=== PATIENT | male | born 1960 | race Hispanic/Latino ===

== ENCOUNTER 2019-10-10 09:18 | Observation (INO) | payer OTHER ==
[2019-10-10] MEDS ORDERED: MORPHINE 4 MG/ML SYR ONE (10:08)
[2019-10-10] MEDS ORDERED: NA CHLORIDE 0.9% 1,000 ML ONE (10:08)
[2019-10-10] MEDS ORDERED: ONDANSETRON 4 MG/2 ML VIAL ONE ×2 (10:08→11:32)
[2019-10-10] MEDS ORDERED: FAMOTIDINE 20 MG/2 ML VIAL IV ONE (10:08)
--- NOTE | 2019-10-10 10:15 | RAD REPORT ---
EXAM DESCRIPTION: RAD - Chest Single View - 10/10/2019 10:05 am CLINICAL HISTORY: Chest pain;Abdominal distention Chest pain. COMPARISON: CHEST SINGLE VIEW dated 03/17/2009 FINDINGS: Portable technique limits examination quality. The lungs are grossly clear. The heart is normal in size. No displaced fractures. IMPRESSION: No acute intrathoracic process suspected.
[2019-10-10 10:29] LABS: Absolute Lymphocytes (CBC) 2.4 K/uL (0.7-4.9); Basophils % 0.7 % (0-1.3); Hematocrit 44.3 % (39.6-49.0); MPV 7.9 fL (7.6-11.3); RBC Red Blood Cell Count 4.71 M/uL (4.33-5.43)
[2019-10-10 11:22] LABS: Protime INR 0.96
--- NOTE | 2019-10-10 11:30 | EKG ---
Test Date: 2019-10-10 Test Time: 09:56:36 Quality Eng: MERARY MEASUREMENT RESULTS: Intervals: Rate: 65 TN: 134 QRSD: 88 QT: 402 QTc: 418 Blakely: P: 73 TN: 134 QRS: 91 T: 63 INTERPRETIVE STATEMENTS: Normal sinus rhythm Right atrial enlargement Rightward axis Voltage criteria for left ventricular hypertrophy Abnormal ECG Compared to ECG 03/17/2009 16:16:12 Atrial abnormality now present Right-axis deviation now present Left ventricular hypertrophy now present Electronically Signed On 10-10-19 11:29:06 UROGYNECOLOGY PHYSICIAN by Nicho Woods
[2019-10-10] MEDS ORDERED: HYDROMORPHONE HCL 1 MG/ML INJ ONE ×2 (11:32→13:49)
[2019-10-10 12:16] LABS: ALT/SGPT 37 U/L (12-78); AST/SGOT 25 U/L (15-37); Albumin 3.8 g/dL (3.4-5.0); Alkaline Phosphatase 59 U/L (45-117); BUN Blood Urea Nitrogen 13 mg/dL (7-18); Bicarbonate 26 mmol/L (21-32); Bilirubin Direct < 0.1 mg/dL (0-0.2); Bilirubin Total 0.3 mg/dL (0.2-1.0); Glucose Level 123 mg/dL (74-106); Lipase 135 U/L (73-393); Magnesium 2.2 mg/dL (1.8-2.4); NT PRO-BNP 929 pg/mL (<125); Potassium 3.4 mmol/L (3.5-5.1); Protein, Total 7.8 g/dL (6.4-8.2); Sodium Level 140 mmol/L (136-145); Troponin (Emerg Dept Use Only) 0.03 ng/mL (0.0-0.045)
[2019-10-10 12:25] LABS: Urine Blood NEGATIVE (NEG); Urine Glucose NEGATIVE (NEG); Urine Protein NEGATIVE (NEG)
[2019-10-10] MEDS ORDERED: AMLODIPINE 5 MG TAB ONE (12:41)
--- NOTE | 2019-10-10 12:42 | RAD REPORT ---
EXAM DESCRIPTION: CT - Angio Aorta For Dissection - 10/10/2019 12:29 pm CLINICAL HISTORY: Chest pain radiating to the back. Abdominal distention;Chest pain COMPARISON: Chest Single View dated 10/10/2019; ABD PELVIC VASCULAR SCAN dated 10/07/2013 TECHNIQUE: CT angiography of the aorta was performed with MIPs. All CT scans are performed using dose optimization technique as appropriate and may include automated exposure control or mA/KV adjustment according to patient size. FINDINGS: A left aortic arch is present with normal branching pattern of the great vessels.No acute aortic finding is seen such as aneurysm, penetrating ulcer or dissection. The celiac axis, SMA, MARY and renal arteries are patent. No evidence of pulmonary embolism. The lungs are mildly emphysematous but clear. The liver demonstrates no focal mass or biliary dilatation.The spleen, pancreas, adrenal glands and k idneys are within normal limits for arterial phase imaging. Somewhat distended gallbladder is seen. No bowel obstruction, free fluid or abscess.Normal appendix.No pathologic enlarged lymphadenopathy id entified. Postsurgical changes are present in the lumbar spine with stimulator place. IMPRESSION: No acute aortic finding is demonstrated. Gallbladder distention is noted. If the patient has right upper quadrant symptomology, followup gallb ladder sonography may be useful.
[2019-10-10] MEDS ORDERED: POTASSIUM CL SA 10 MEQ TAB PO ONE (12:48)
[2019-10-10 12:54] LABS: Barbiturates NEGATIVE (NEGATIVE); Benzodiazepines NEGATIVE (NEGATIVE); Cocaine POSITIVE (NEGATIVE); METHAMPHETAM NEGATIVE (NEGATIVE); Methadone NEGATIVE (NEGATIVE); Opiates NEGATIVE (NEGATIVE); Phencyclidine NEGATIVE (NEGATIVE); THC Cannibis NEGATIVE (NEGATIVE)
[2019-10-10] MEDS ORDERED: NS KCL 20MEQ 1,000 ML IV ONE (12:56)
--- NOTE | 2019-10-10 13:39 | RAD REPORT ---
EXAM DESCRIPTION: US - Abdomen Exam Limited - 10/10/2019 1:03 pm CLINICAL HISTORY: ABD PAIN COMPARISON: ABD PELVIC VASCULAR SCAN dated 10/07/2013 FINDINGS: Approximately 3 centimeter sized mobile gallstone is present in a normal size gallbladder. There is no wall thickening or pericholecystic fluid. No common duct stone or biliary tree dilatation identified. IMPRESSION: Large 3 millimeter mobile gallstone. No other gallbladder or biliary tree abnormality.
--- NOTE | 2019-10-10 13:47 | ER ---
Nurse's Notes [facility] Name: Pillo Pickens Age: 58 yrs Sex: Male : 1960 Arrival Date: 10/10/2019 Time: 09:24 Bed 7 Private MD: Diagnosis: Other chest pain;Abdominal tenderness;Essential (primary) hypertension;Hypokalemia;Cocaine abuse Presentation: 10/10 09:36 Chief complaint: Patient states: pain just under ribs and towards back that began ss yesterday. Coronavirus screen: The patient has NOT traveled to [place] in the past 14 days. Proceed with normal triage procedures. Ebola Screen: Patient denies exposure to infectious person. Patient denies travel to an Ebola-affected area in the 21 days before illness onset. Initial Sepsis Screen: Does the patient meet any 2 criteria? No. Patient's initial sepsis screen is negative. Does the patient have a suspected source of infection? No. Patient's initial sepsis screen is negative. Risk Assessment: Do you want to hurt yourself or someone else? Patient reports no desire to harm self or others. 09:36 Method Of Arrival: Ambulatory ss 09:36 Acuity: SHADY 3 ss 11:24 Onset of symptoms was October 09, 2019. ah Historical: - Allergies: 09:35 No Known Allergies; ss - Home Meds: 09:35 gabapentin 800 mg oral tab 1 tab 3 times per day [Active]; ss - PMHx: 09:35 Chronic pain; ss 09:36 bacterial meningitits (2012); ss - PSHx: 09:35 spinal fusion; electrical stiumlator (is not on/ does not work); ss - Immunization history:: Adult Immunizations up to date. - Social history:: Smoking status: Patient reports the use of cigarette tobacco products, smokes one pack cigarettes per day. - Family history:: not pertinent. Screenin:28 Abuse screen: Denies threats or abuse. Denies injuries from another. Nutritional sv screening: No deficits noted. Tuberculosis screening: No symptoms or risk factors identified. Fall Risk None identified. Assessment: 09:39 General: Appears distressed, Behavior is calm, cooperative. Pain: Complains of pain in ah around ribs and all the way around to his back Pain does not radiate. Pain at worst was 9 out of 10 on a pain scale. Quality of pain is described as sharp, Pain began last night Is continuous, Alleviated by standing Aggravated by laying down Also complains of hurts to take a deep breath while laying down. Neuro: Level of Consciousness is awake, alert, Oriented to person, place, time, Submarine Operator are equal bilaterally Moves all extremities. Gait is steady, Speech is normal. Cardiovascular: Heart tones S1 S2 present Capillary refill < 3 seconds Patient's skin is warm and dry. Pulses are palpable in right radial artery, right dorsalis pedis artery, left radial artery and left dorsalis pedis artery. Respiratory: Airway is patent Respiratory effort is even, unlabored, Respiratory pattern is regular, symmetrical, Breath sounds are clear bilaterally. Parent/caregiver reports the patient having pain with respiration. GI: No signs and/or symptoms were reported involving the gastrointestinal system. Abdomen is. 10:40 Reassessment: Patient appears in no apparent distress at this time. Patient and/or ah family updated on plan of care and expected duration. Pain level reassessed. Patient is alert, oriented x 3, equal unlabored respirations, skin warm/dry/pink. 11:34 Reassessment: Patient appears in no apparent distress at this time. Patient and/or ah family updated on plan of care and expected duration. Pain level reassessed. Patient is alert, oriented x 3, equal unlabored respirations, skin warm/dry/pink. Pt with c/o pain. Dilaudid admnistered at this time. 12:45 Reassessment: Patient appears in no apparent distress at this time. Patient and/or ah family updated on plan of care and expected duration. Pain level reassessed. Patient is alert, oriented x 3, equal unlabored respirations, skin warm/dry/pink. Norvasc given at this time. 13:45 Reassessment: Patient appears in no apparent distress at this time. Patient and/or ah family updated on plan of care and expected duration. Pain level reassessed. Patient is alert, oriented x 3, equal unlabored respirations, skin warm/dry/pink. Pt medicated with Dilauded about 15 mins ago, Pt lying in bed resting with family at bedside. No needs at this time. 15:20 Reassessment: Patient appears in no apparent distress at this time. Patient and/or ah family updated on plan of care and expected duration. Pain level reassessed. Patient is alert, oriented x 3, equal unlabored respirations, skin warm/dry/pink. Patient given sandwich and a drink at this time Patient states symptoms have improved. Vital Signs: 09:30 BP 185 / 100; Pulse 70; Resp 20; Pulse Ox 99% ; ah 09:36 BP 185 / 100; Pulse 69; Resp 18; Temp 98.6(TE); Pulse Ox 100% on R/A; Weight 61.23 kg; Height 5 ft. 7 in. (170.18 cm); Pain 9/10; 11:30 BP 191 / 102; Pulse 66; Resp 13; Pulse Ox 100% ; ah 12:45 BP 176 / 99; Pulse 66; Resp 20; Pulse Ox 100% ; 14:06 BP 173 / 79; Pulse 60; Resp 12; Pulse Ox 99% ; 15:16 BP 173 / 100; Pulse 65; Resp 12; Pulse Ox 99% ; 09:36 Body Mass Index 21.14 (61.23 kg, 170.18 cm) ED Course: 09:24 Patient arrived in ED. mr 09:27 Arm band placed on Patient placed in an exam room, on a stretcher. sv 09:27 Patient has correct armband on for positive identification. Bed in low position. Call sv light in reach. Door closed. Head of bed elevated. 09:29 Mohsen Bell MD is Attending Physician. [facility] 09:34 Eli Solorzano, RN is Primary Nurse. 09:37 Triage completed. 10:06 XRAY Chest (1 view) In Process Unspecified. EDMS 10:13 EKG done, by water restoration technician. reviewed by Mohsen Bell MD. at1 10:15 Missed attempt(s): 20 gauge in left forearm. done by Marleni Santizo dental manager student. Bleeding controlled, band aid applied, catheter tip intact. 10:22 Inserted saline lock: 22 gauge in right hand, using aseptic technique. 11:00 Radiology exam delayed due to lab results not completed at this time. (BUN/Creatinine). 12:22 Inserted saline lock: 22 gauge in left antecubital area, using aseptic technique. 12:22 Urine Dipstick--Ancillary (enter results) Sent. sv 12:25 Patient moved back from CT. ah 12:29 CT Aorta for Dissection In Process Unspecified. EDMS 12:45 Repeat lab(s) drawn. by pr, sent to lab. jb1 13:03 US Abdomen Limited In Process Unspecified. EDCT 13:44 Akhil Dumont MD is Hospitalizing Provider. [facility] 13:[address] Dumont the hospitalist interventional sale consultant with Dr. Bell for patient eb admission consultation. 15:15 Awaiting bed assignment. 15:44 No provider procedures requiring assistance completed. Patient admitted, IV remains in place. intact. Administered Medications: 10:30 Drug: NS 0.9% 1000 ml Route: IV; Rate: 1 bolus; Site: right hand; 10:30 Drug: Pepcid 20 mg Route: IVP; Site: right hand; ah 11:30 Follow up: Response: No adverse reaction 10:30 Drug: morphine 4 mg {Note: rass 1.} Route: IVP; Site: right hand; 11:30 Follow up: Response: No adverse reaction 10:54 Drug: Zofran (Ondansetron) 4 mg Route: IVP; Site: right hand; 14:03 Follow up: Response: No adverse reaction 11:34 Drug: Dilaudid 1 mg {Note: RASS 1.} Route: IVP; Site: right hand; 13:28 Follow up: Response: No adverse reaction; Pain is decreased ah 12:39 CANCELLED (Physician Discretion): Potassium Chloride 20 mEq PO once 12:44 CANCELLED (Duplicate Order): Potassium Chloride 20 mEq PO once [facility] 12:46 Drug: Norvasc 10 mg Route: PO; ah 13:27 Follow up: Response: No adverse reaction ah 12:47 Drug: Potassium Chloride 20 mEq Route: PO; ah 14:03 Follow up: Response: No adverse reaction 13:19 Drug: NS 0.9% with KCl 20 mEq/L 1000 ml Route: IV; Rate: 125 ml/hr; Site: right hand; ah 15:51 Follow up: Response: No adverse reaction; IV Status: Infusion continued upon admission 13:51 Drug: Dilaudid 1 mg {Note: Rass 1.} Route: IVP; Site: left antecubital; 14:55 Follow up: Response: No adverse reaction; Pain is decreased; RASS: Alert and Calm (0) 13:55 Drug: Aspirin 162 mg Route: PO; 14:55 Follow up: Response: No adverse reaction 15:45 Not Given (not needed): Zofran (Ondansetron) 4 mg IVP once; over 2 minutes sv Outcome: 13:45 Decision to Hospitalize by Provider. jenny 15:42 Admitted to [facility] accompanied by [facility], via wheelchair, room 405, with chart, Report called to Mayra 15:42 Condition: stable 15:42 Discharge instructions given to patient, family, Instructed on the need for admit, Demonstrated understanding of instructions. 15:51 Patient left the ED. sv Signatures: Dispatcher [employer] EDThomas Recio Stephanie, RN RN Mohsen Almodovar MD MD cha Rivera, Savanah mr Hernandez, Ana Macdonald RN RN Fadumo Perry, tipple worker EKG Tat1 Leigh Agrawal Amy, RN RN Corrections: (The following items were deleted from the chart) 12:30 11:22 Inserted saline lock: 22 gauge in right hand, using aseptic technique. [facility] 12:55 12:54 Repeat lab(s) drawn. by pr, sent to lab. jb1 jb1 14:03 10:30 morphine 4 mg IVP in right hand [facility]
--- NOTE | 2019-10-10 13:47 | EDPHYS ---
Physician Documentation [facility] Name: Pillo Pickens Age: 58 yrs Sex: Male : 1960 Arrival Date: 10/10/2019 Time: 09:24 Bed 7 Private MD: Mohsen Castillo HPI: 10/10 09:54 This 58 yrs old Male presents to ER via Ambulatory with complaints of Pain All jenny Over. 09:54 The patient or guardian reports chest pain that is located primarily in the substernal jenny area, anterior chest wall, bilaterally. Onset: 2 day(s) ago. The patient presents with abdominal pain in the epigastric area, in the upper abdomen. Onset: The symptoms/episode began/occurred 2 day(s) ago. The pain radiates to back. The symptoms radiate to back. Associated signs and symptoms: none. Modifying factors: The symptoms are alleviated by nothing, the symptoms are aggravated by food, movement, touching the area. Associated signs and symptoms: The patient has no apparent associated signs or symptoms. Historical: - Allergies: 09:35 No Known Allergies; ss - Home Meds: 09:35 gabapentin 800 mg oral tab 1 tab 3 times per day [Active]; ss - PMHx: 09:35 Chronic pain; ss 09:36 bacterial meningitits (2012); ss - PSHx: 09:35 spinal fusion; electrical stiumlator (is not on/ does not work); ss - Immunization history:: Adult Immunizations up to date. - Social history:: Smoking status: Patient reports the use of cigarette tobacco products, smokes one pack cigarettes per day. - Family history:: not pertinent. ROS: 09:54 Constitutional: Negative for fever, chills, and weight loss, Eyes: Negative for injury, jenny pain, redness, and discharge, ENT: Negative for injury, pain, and discharge, Neck: Negative for injury, pain, and swelling, Cardiovascular: Negative for chest pain, palpitations, and edema, Respiratory: Negative for shortness of breath, cough, wheezing, and pleuritic chest pain, Back: Negative for injury and pain, : Negative for injury, bleeding, discharge, and swelling, MS/Extremity: Negative for injury and deformity, Skin: Negative for injury, rash, and discoloration, Neuro: Negative for headache, weakness, numbness, tingling, and seizure, Psych: Negative for depression, anxiety, suicide ideation, homicidal ideation, and hallucinations, Allergy/Immunology: Negative for hives, rash, and allergies, Endocrine: Negative for neck swelling, polydipsia, polyuria, polyphagia, and marked weight changes, Hematologic/Lymphatic: Negative for swollen nodes, abnormal bleeding, and unusual bruising. 09:54 Abdomen/GI: Positive for abdominal pain, abdominal cramps, of the right upper quadrant and left upper quadrant. Exam: 09:54 Constitutional: This is a well developed, well nourished patient who is awake, alert, jenny and in no acute distress. Head/Face: Normocephalic, atraumatic. Eyes: Pupils equal round and reactive to light, extra-ocular motions intact. Lids and lashes normal. Conjunctiva and sclera are non-icteric and not injected. Cornea within normal limits. Periorbital areas with no swelling, redness, or edema. ENT: Nares patent. No nasal discharge, no septal abnormalities noted. Tympanic membranes are normal and external auditory canals are clear. Oropharynx with no redness, swelling, or masses, exudates, or evidence of obstruction, uvula midline. Mucous membranes moist. Neck: Trachea midline, no thyromegaly or masses palpated, and no cervical lymphadenopathy. Supple, full range of motion without nuchal rigidity, or vertebral point tenderness. No Meningismus. Chest/axilla: Normal chest wall appearance and motion. Nontender with no deformity. No lesions are appreciated. Cardiovascular: Regular rate and rhythm with a normal S1 and S2. No gallops, murmurs, or rubs. Normal PMI, no JVD. No pulse deficits. Respiratory: Lungs have equal breath sounds bilaterally, clear to auscultation and percussion. No rales, rhonchi or wheezes noted. No increased work of breathing, no retractions or nasal flaring. Back: No spinal tenderness. No costovertebral tenderness. Full range of motion. Male : Normal genitalia with no discharge or lesions. Skin: Warm, dry with normal turgor. Normal color with no rashes, no lesions, and no evidence of cellulitis. MS/ Extremity: Pulses equal, no cyanosis. Neurovascular intact. Full, normal range of motion. Neuro: Awake and alert, GCS 15, oriented to person, place, time, and situation. Cranial nerves II-XII grossly intact. Motor strength 5/5 in all extremities. Sensory grossly intact. Cerebellar exam normal. Normal gait. Psych: Awake, alert, with orientation to person, place and time. Behavior, mood, and affect are within normal limits. 09:54 Abdomen/GI: Inspection: abdomen appears normal, Bowel sounds: normal, Palpation: moderate abdominal tenderness, in the right upper quadrant and left upper quadrant, Liver: no appreciated palpable abnormalities, Hernia: not appreciated. Vital Signs: 09:30 BP 185 / 100; Pulse 70; Resp 20; Pulse Ox 99% ; ah 09:36 BP 185 / 100; Pulse 69; Resp 18; Temp 98.6(TE); Pulse Ox 100% on R/A; Weight 61.23 kg; ss Height 5 ft. 7 in. (170.18 cm); Pain 9/10; 11:30 BP 191 / 102; Pulse 66; Resp 13; Pulse Ox 100% ; ah 12:45 BP 176 / 99; Pulse 66; Resp 20; Pulse Ox 100% ; 14:06 BP 173 / 79; Pulse 60; Resp 12; Pulse Ox 99% ; ah 15:16 BP 173 / 100; Pulse 65; Resp 12; Pulse Ox 99% ; ah 09:36 Body Mass Index 21.14 (61.23 kg, 170.18 cm) ss MDM: 09:29 [facility] 09:56 Data reviewed: vital signs, nurses notes, lab test result(s), EKG, radiologic studies, [facility] CT scan, plain films. 10/10 09:52 Order name: Basic Metabolic Panel; Complete Time: 12:23 [facility] 10/10 09:52 Order name: CBC with Diff; Complete Time: 10:58 [facility] 10/10 09:52 Order name: LFT's; Complete Time: 12:23 [facility] 10/10 09:52 Order name: Magnesium; Complete Time: 12:23 [facility] 10/10 09:52 Order name: NT PRO-BNP; Complete Time: 12:23 [facility] 10/10 09:52 Order name: PT-INR; Complete Time: 11:28 [facility] 10/10 09:52 Order name: Troponin (emerg Dept Use Only); Complete Time: 12:23 [facility] 10/10 09:52 Order name: Lipase; Complete Time: 12:23 [facility] 10/10 12:03 Order name: UDS; Complete Time: 12:59 [facility] 10/10 12:19 Order name: Urine Dipstick--Ancillary (enter results); Complete Time: 12:26 10/10 12:24 Order name: Troponin (emerg Dept Use Only): 1245 pm; Complete Time: 13:41 [facility] 10/10 15:01 Order name: CKMB Creatine Kinase MB [facility] 10/10 15:01 Order name: CKMB Creatine Kinase MB [facility] 10/10 15:01 Order name: CKMB Creatine Kinase MB [facility] 10/10 09:52 Order name: XRAY Chest (1 view); Complete Time: 10:58 [facility] 10/10 09:52 Order name: CT Aorta for Dissection; Complete Time: 12:59 [facility] 10/10 12:44 Order name: US Abdomen Limited [facility] 10/10 15:01 Order name: CKMB Creatine Kinase MB [facility] 10/10 15:01 Order name: Comprehensive Metabolic Panel [facility] 10/10 15:03 Order name: Thyroid Stimulating Hormone [facility] 10/10 15:03 Order name: Creatine Phosphokinase [facility] 10/10 15:03 Order name: Creatine Phosphokinase [facility] 10/10 15:03 Order name: Troponin I [facility] 10/10 15:03 Order name: Troponin I [facility] 10/10 15:08 Order name: Echo with Doppler [facility] 10/10 09:52 Order name: EKG; Complete Time: 09:54 [facility] 10/10 09:52 Order name: Cardiac monitoring; Complete Time: 12:05 [facility] 10/10 09:52 Order name: EKG - Nurse/Tech; Complete Time: 12:05 [facility] 10/10 09:52 Order name: IV Saline Lock; Complete Time: 11:00 [facility] 10/10 09:52 Order name: Labs collected and sent; Complete Time: 11:00 [facility] 10/10 09:52 Order name: O2 Per Protocol; Complete Time: 12:05 [facility] 10/10 09:52 Order name: O2 Sat Monitoring; Complete Time: 12:05 [facility] 10/10 10:50 Order name: Labs - recollect needed: chemistry and pt tube recollect; Complete Time: dh4 11:10 10/10 11:31 Order name: Labs - recollect needed: chemistry needed; Complete Time: 11:50 [facility] 10/10 12:00 Order name: Urine Dipstick-Ancillary (obtain specimen); Complete Time: 12:22 [facility] 10/10 12:29 Order name: EKG; Complete Time: 12:29 [facility] 10/10 12:29 Order name: EKG - Nurse/Tech; Complete Time: 13:21 [facility] 10/10 15:03 Order name: Heart Healthy EDMS Administered Medications: 10:30 Drug: NS 0.9% 1000 ml Route: IV; Rate: 1 bolus; Site: right hand; ah 10:30 Drug: Pepcid 20 mg Route: IVP; Site: right hand; 11:30 Follow up: Response: No adverse reaction ah 10:30 Drug: morphine 4 mg {Note: rass 1.} Route: IVP; Site: right hand; ah 11:30 Follow up: Response: No adverse reaction ah 10:54 Drug: Zofran (Ondansetron) 4 mg Route: IVP; Site: right hand; 14:03 Follow up: Response: No adverse reaction ah 11:34 Drug: Dilaudid 1 mg {Note: RASS 1.} Route: IVP; Site: right hand; 13:28 Follow up: Response: No adverse reaction; Pain is decreased ah 12:39 CANCELLED (Physician Discretion): Potassium Chloride 20 mEq PO once sv 12:44 CANCELLED (Duplicate Order): Potassium Chloride 20 mEq PO once jenny 12:46 Drug: Norvasc 10 mg Route: PO; ah 13:27 Follow up: Response: No adverse reaction ah 12:47 Drug: Potassium Chloride 20 mEq Route: PO; ah 14:03 Follow up: Response: No adverse reaction ah 13:19 Drug: NS 0.9% with KCl 20 mEq/L 1000 ml Route: IV; Rate: 125 ml/hr; Site: right hand; ah 15:51 Follow up: Response: No adverse reaction; IV Status: Infusion continued upon admission ah 13:51 Drug: Dilaudid 1 mg {Note: Rass 1.} Route: IVP; Site: left antecubital; 14:55 Follow up: Response: No adverse reaction; Pain is decreased; RASS: Alert and Calm (0) ah 13:55 Drug: Aspirin 162 mg Route: PO; ah 14:55 Follow up: Response: No adverse reaction 15:45 Not Given (not needed): Zofran (Ondansetron) 4 mg IVP once; over 2 minutes sv Disposition: 10/10/19 13:45 Hospitalization ordered by Akhil Dumont for Inpatient Admission. Preliminary diagnosis are Other chest pain, Abdominal tenderness, Essential (primary) hypertension, Hypokalemia, Cocaine abuse. - Bed requested for Telemetry/MedSurg (Inpatient). - Status is Inpatient Admission. sv - Condition is Fair. - Problem is new. - Symptoms have improved. Signatures: Dispatcher [employer] Ivy Bullard RN RN Gris Piña RN RN dw Anderson, Corey, MD MD cha Smirch, Shelby, RN RN Eli Solorzano RN JHONATAN Todd Rios [facility] Corrections: (The following items were deleted from the chart) 12:39 12:26 Potassium Chloride Liquid 20 mEq PO once ordered. jenny sv 12:39 12:38 Potassium Chloride Liquid 20 mEq PO once ordered. sv sv 12:44 12:38 Potassium Chloride 20 mEq PO once ordered. sv jenny 15:31 13:45 Hospitalization Ordered by Akhil Dumont MD for Inpatient Admission. Preliminary dw diagnosis is Other chest pain; Abdominal tenderness; Essential (primary) hypertension; Hypokalemia; Cocaine abuse. Bed requested for Telemetry/MedSurg (Inpatient). Status is Inpatient Admission. Condition is Fair. Problem is new. Symptoms have improved. jenny 15:51 15:31 10/10/2019 13:45 Hospitalization Ordered by Akhil Dumont MD for Inpatient sv Admission. Preliminary diagnosis is Other chest pain; Abdominal tenderness; Essential (primary) hypertension; Hypokalemia; Cocaine abuse. Bed requested for Telemetry/MedSurg (Inpatient). Status is Inpatient Admission. Condition is Fair. Problem is new. Symptoms have improved. dw
[2019-10-10] MEDS ORDERED: ASPIRIN 81 MG CHEWABLE TABLET ONE (14:01)
--- NOTE | 2019-10-10 14:56 | P.HP ---
Certification for Inpatient Patient admitted to: Observation With expected LOS: <2 Midnights Practitioner: I am a practitioner with admitting privileges, knowledge of patient current condition, hospital course, and medical plan of care. Services: Services provided to patient in accordance with Admission requirements found in Title 42 Section 412.3 of the Code of Federal Regulations Patient History Date of Service: 10/10/19 Reason for admission: Epigastric pain, chest discomfort History of Present Illness: 58 yrs old Male with past medical history of back pain status post spinal stimulator , on gabapentin presents with complaints of pain located primarily in the substernal area, anterior chest wall, and epigastric area , radiating to back which started 2 days back and has been progressively worsening and was brought to ER. Denies any shortness of breath. No fever no chills . The symptoms are aggravated with moments and food . No nausea vomiting. No recent travel - Past Medical/Surgical History Past Medical History: Reviewed- Non-Contributory -: Status post spinal stimulator -: Neuropathy Past Surgical History: Reviewed- Non-Contributory -: Spinal stimulator placed - Family History Family History: Reviewed- Non-Contributory - Social History Smoking Status: Current every day smoker CD- Drugs: Yes Review of Systems 10-point ROS is otherwise unremarkable Physical Examination - Vital Signs Temperature: 97.8 F Blood Pressure: 170/108 Pulse: 82 Respirations: 18 - Physical Exam General: Alert, In no apparent distress HEENT: Atraumatic, Normocephalic Neck: Supple Respiratory: Clear to auscultation bilaterally, Normal air movement Cardiovascular: No edema, Regular rate/rhythm Capillary refill: <2 Seconds Gastrointestinal: Soft and benign, Non-distended, W/out hepatosplenomegaly, Tenderness Musculoskeletal: No clubbing, No swelling Integumentary: No rashes, No breakdown Neurological: Normal speech, Normal strength at 5/5 x4 extr Lymphatics: No axilla or inguinal lymphadenopathy External genitalia: Deferred - Studies Laboratory Data (last 24 hrs) 10/10/19 11:45: Sodium 140, Potassium 3.4 L, BUN 13, Creatinine 0.83, Glucose 123 H, Magnesium 2.2, Total Bilirubin 0.3, AST 25, ALT 37, Alkaline Phosphatase 59, Lipase 135 10/10/19 11:10: PT 11.3, INR 0.96 10/10/19 10:13: WBC 10.6, Hgb 15.0, Hct 44.3, Plt Count 351 Laboratory Last Values WBC 10.6 K/uL (4.3-10.9) 10/10/19 10:13 RBC 4.71 M/uL (4.33-5.43) 10/10/19 10:13 Hgb 15.0 g/dL (13.6-17.9) 10/10/19 10:13 Hct 44.3 % (39.6-49.0) 10/10/19 10:13 MCV 94.1 fL (80-100) 10/10/19 10:13 MCH 31.9 pg (27.0-35.0) 10/10/19 10:13 MCHC 33.9 g/dL (32.0-36.0) 10/10/19 10:13 RDW 14.7 % (12.1-15.2) 10/10/19 10:13 Plt Count 351 K/uL (152-406) 10/10/19 10:13 MPV 7.9 fL (7.6-11.3) 10/10/19 10:13 Neutrophils % 68.9 % (41.7-73.7) 10/10/19 10:13 Lymphocytes % 23.0 % (15.3-44.8) 10/10/19 10:13 Monocytes % 6.3 % (3.3-12.3) 10/10/19 10:13 Eosinophils % 1.1 % (0-4.4) 10/10/19 10:13 Basophils % 0.7 % (0-1.3) 10/10/19 10:13 Absolute Neutrophils 7.3 K/uL (1.8-8.0) 10/10/19 10:13 Absolute Lymphocytes 2.4 K/uL (0.7-4.9) 10/10/19 10:13 Absolute Monocytes 0.7 K/uL (0.1-1.3) 10/10/19 10:13 Absolute Eosinophils 0.1 K/uL (0-0.5) 10/10/19 10:13 Absolute Basophils 0.1 K/uL (0-0.5) 10/10/19 10:13 PT 11.3 SECONDS (9.5-12.5) 10/10/19 11:10 INR 0.96 10/10/19 11:10 Sodium 140 mmol/L (136-145) 10/10/19 11:45 Potassium 3.4 mmol/L (3.5-5.1) L 10/10/19 11:45 Chloride 105 mmol/L (98-107) 10/10/19 11:45 Carbon Dioxide 26 mmol/L (21-32) 10/10/19 11:45 BUN 13 mg/dL (7-18) 10/10/19 11:45 Creatinine 0.83 mg/dL (0.55-1.3) 10/10/19 11:45 Estimated GFR > 90 mL/min (=/>90) 10/10/19 11:45 Glucose 123 mg/dL (74-106) H 10/10/19 11:45 Calcium 8.4 mg/dL (8.5-10.1) L 10/10/19 11:45 Magnesium 2.2 mg/dL (1.8-2.4) 10/10/19 11:45 Total Bilirubin 0.3 mg/dL (0.2-1.0) 10/10/19 11:45 Direct Bilirubin < 0.1 mg/dL (0-0.2) 10/10/19 11:45 AST 25 U/L (15-37) 10/10/19 11:45 ALT 37 U/L (12-78) 10/10/19 11:45 Alkaline Phosphatase 59 U/L (45-117) 10/10/19 11:45 Rapid Troponin I 0.04 ng/mL (0.0-0.045) 10/10/19 12:45 NT-Pro-B Natriuret Pep 929 pg/mL (<125) H 10/10/19 11:45 Serum Total Protein 7.8 g/dL (6.4-8.2) 10/10/19 11:45 Albumin 3.8 g/dL (3.4-5.0) 10/10/19 11:45 Globulin 4.0 g/dL (2.3-3.5) H 10/10/19 11:45 Albumin/Globulin Ratio 1.0 (1.1-1.8) L 10/10/19 11:45 Lipase 135 U/L (73-393) 10/10/19 11:45 Urine pH 6.0 (5.0-7.0) 10/10/19 12:19 Ur Specific [place] 1.010 (1.005-1.030) 10/10/19 12:19 Glucose (UA)(Auto) Negative (NEG) 10/10/19 12:19 Urine Ketones Negative (NEG) 10/10/19 12:19 Urine Blood Negative (NEG) 10/10/19 12:19 Urine Nitrite Negative (NEG) 10/10/19 12:19 Ur Leukocyte Esterase Negative (NEG) 10/10/19 12:19 Urine Total Protein Negative (NEG) 10/10/19 12:19 Opiates Screen Negative (NEGATIVE) 10/10/19 12:10 Methadone Screen Negative (NEGATIVE) 10/10/19 12:10 Ur Barbiturates Screen Negative (NEGATIVE) 10/10/19 12:10 Ur Phencyclidine Scrn Negative (NEGATIVE) 10/10/19 12:10 Amphetamines Screen Negative (NEGATIVE) 10/10/19 12:10 Benzodiazepines Screen Negative (NEGATIVE) 10/10/19 12:10 Cocaine Screen Positive (NEGATIVE) H 10/10/19 12:10 Ur THC Screen Negative (NEGATIVE) 10/10/19 12:10 Assessment and Plan - Problems (Diagnosis) (1) Chest pain Current Visit: Yes Status: Acute (2) Epigastric abdominal pain Current Visit: Yes Status: Acute (3) Accelerated hypertension Current Visit: Yes Status: Acute (4) Substance abuse Current Visit: Yes Status: Acute (5) Elevated brain natriuretic peptide (BNP) level Current Visit: Yes Status: Acute Plan: Chest pain to rule out ACS Epigastric pain Cholelithiasis Elevated BNP cocaine abuse History of chronic back pain status post spinal stimulator Will trend LFTs If elevated will get surgical consult Monitor under telemetry Trend cardiac enzymes Will get an echocardiogram Acute on aspirin statin Protonix Advised smoking cessation and stop usage of cocaine Antihypertensives titrated GI/DVT prophylaxis Discharge Plan: Home Plan to discharge in: 24 Hours - Advance Directives Does patient have a Living Will: No Does patient have a Durable POA for Healthcare: No Time Spent Managing Pts Care (In Minutes): 42
[2019-10-10] MEDS ORDERED: ONDANSETRON 4 MG/2 ML VIAL IV PRN (14:57)
[2019-10-10] MEDS ORDERED: ACETAMINOPHEN 500 MG TAB PO PRN (14:57)
[2019-10-10] MEDS ORDERED: ALBUTEROL 2.5 MG/3 ML NEB SOL NEB PRN (14:57)
[2019-10-10] MEDS: NA CHLORIDE 0.9% 1,000 ML IV SCH ×2 (15:00→22:23)
[2019-10-10] MEDS ORDERED: HYDRALAZINE HCL 20 MG/ML VIAL IV PRN (15:34)
[2019-10-10] MEDS: AMLODIPINE 10 MG TAB PO SCH (16:00)
[2019-10-10] MEDS: PANTOPRAZOLE 40MG TABLET PO SCH (17:58)
[2019-10-10 18:40] LABS: Urine Appearance CLEAR; Urine Bilirubin NEGATIVE (NEG); Urine Blood NEGATIVE (NEG); Urine Color YELLOW; Urine Glucose 1+ (NEG); Urine Protein NEGATIVE (NEG); Urine Urobilinogen 0.2 mg/dL (0.2-1.0)
[2019-10-10 18:41] VITALS: BMI 21.1
[2019-10-10 18:43] LABS: Urine Microscopic Reflex NO UMIC
[2019-10-10] MEDS: MORPHINE 2 MG/ML SYR IV PRN (20:23)
[2019-10-10 20:44] LABS: CKMB Creatine Kinase MB 1.4 ng/mL (0.3-3.6); Troponin I 0.02 ng/mL (0.0-0.045)
[2019-10-10] MEDS ORDERED: ATORVASTATIN 40 MG TAB PO SCH (21:00)
[2019-10-11] MEDS: MORPHINE 2 MG/ML SYR IV PRN ×3 (01:53→11:58)
[2019-10-11 04:22] LABS: Absolute Lymphocytes (CBC) 2.7 K/uL (0.7-4.9); Hematocrit 40.6 % (39.6-49.0); Lymphocytes % 27.5 % (15.3-44.8); MPV 7.6 fL (7.6-11.3); RBC Red Blood Cell Count 4.32 M/uL (4.33-5.43)
[2019-10-11 04:32] LABS: CKMB Creatine Kinase MB < 1.0 ng/mL (0.3-3.6); Creatine Phosphokinase 43 U/L (39-308); Troponin I 0.03 ng/mL (0.0-0.045)
[2019-10-11 04:34] LABS: Albumin 3.6 g/dL (3.4-5.0); Bilirubin Total 0.5 mg/dL (0.2-1.0); Phosphorus 3.2 mg/dL (2.5-4.9); Potassium 3.7 mmol/L (3.5-5.1); Protein, Total 6.9 g/dL (6.4-8.2)
[2019-10-11] MEDS ORDERED: POTASSIUM CL SA 10 MEQ TAB PO ONE (05:43)
[2019-10-11 07:31] LABS: CKMB Creatine Kinase MB 1.1 ng/mL (0.3-3.6); Troponin I 0.02 ng/mL (0.0-0.045)
[2019-10-11] MEDS: PANTOPRAZOLE 40MG TABLET PO SCH (07:57)
[2019-10-11] MEDS: AMLODIPINE 10 MG TAB PO SCH (07:57)
[2019-10-11] MEDS ORDERED: INFLUENZA VACCINE (for 3y+) 0.5 ML DOSE IMVAC ONE (08:00)
[2019-10-11 08:33] VITALS: O2SAT 99
[2019-10-11] MEDS ORDERED: ASPIRIN EC 81 MG TAB PO SCH (09:00)
[2019-10-11] MEDS ORDERED: CYCLOBENZAPRINE 10 MG TAB PO PRN (09:25)
[2019-10-11] MEDS ORDERED: IBUPROFEN 400 MG TAB PO PRN (09:25)
--- NOTE | 2019-10-11 11:01 | EKG ---
Test Date: 2019-10-10 Test Time: 12:46:13 Fans Clerk: MERARY MEASUREMENT RESULTS: Intervals: Rate: 60 ID: [id number] QRSD: 90 QT: 432 QTc: 432 [place]: P: 71 ID: [id number] QRS: 90 T: 58 INTERPRETIVE STATEMENTS: Normal sinus rhythm Right atrial enlargement Rightward axis Voltage criteria for left ventricular hypertrophy Abnormal ECG Compared to ECG 10/10/2019 09:56:36 No significant changes Electronically Signed On 10-11-19 11:00:31 [employer]ER by Nicho Woods
--- NOTE | 2019-10-11 11:06 | P.PN ---
Subjective Date of Service: 10/11/19 Chief Complaint: Epigastric pain, chest discomfort Subjective: No new changes, Improving Review of Systems 10-point ROS is otherwise unremarkable Physical Examination - Vital Signs Temperature: 97.7 F Blood Pressure: 146/88 Pulse: 65 Respirations: 18 Pulse Ox (%): 96 - Physical Exam General: Alert, In no apparent distress HEENT: Atraumatic, Normocephalic Neck: Supple Respiratory: Clear to auscultation bilaterally, Normal air movement Cardiovascular: No edema, Regular rate/rhythm Capillary refill: <2 Seconds Gastrointestinal: Soft and benign, W/out hepatosplenomegaly Musculoskeletal: No clubbing, No swelling Integumentary: No rashes Neurological: Normal speech, Normal strength at 5/5 x4 extr Lymphatics: No axilla or inguinal lymphadenopathy External genitalia: Deferred Rectal: Deferred - Studies Laboratory Data (last 24 hrs) 10/10/19 11:45: Sodium 140, Potassium 3.4 L, BUN 13, Creatinine 0.83, Glucose 123 H, Magnesium 2.2, Total Bilirubin 0.3, AST 25, ALT 37, Alkaline Phosphatase 59, Lipase 135 10/10/19 11:10: PT 11.3, INR 0.96 Laboratory Last Values WBC 10.0 K/uL (4.3-10.9) 10/11/19 03:52 RBC 4.32 M/uL (4.33-5.43) L 10/11/19 03:52 Hgb 13.7 g/dL (13.6-17.9) 10/11/19 03:52 Hct 40.6 % (39.6-49.0) 10/11/19 03:52 MCV 94.1 fL (80-100) 10/11/19 03:52 MCH 31.8 pg (27.0-35.0) 10/11/19 03:52 MCHC 33.8 g/dL (32.0-36.0) 10/11/19 03:52 RDW 14.9 % (12.1-15.2) 10/11/19 03:52 Plt Count 286 K/uL (152-406) 10/11/19 03:52 MPV 7.6 fL (7.6-11.3) 10/11/19 03:52 Neutrophils % 62.1 % (41.7-73.7) 10/11/19 03:52 Lymphocytes % 27.5 % (15.3-44.8) 10/11/19 03:52 Monocytes % 7.9 % (3.3-12.3) 10/11/19 03:52 Eosinophils % 1.5 % (0-4.4) 10/11/19 03:52 Basophils % 1.0 % (0-1.3) 10/11/19 03:52 Absolute Neutrophils 6.2 K/uL (1.8-8.0) 10/11/19 03:52 Absolute Lymphocytes 2.7 K/uL (0.7-4.9) 10/11/19 03:52 Absolute Monocytes 0.8 K/uL (0.1-1.3) 10/11/19 03:52 Absolute Eosinophils 0.1 K/uL (0-0.5) 10/11/19 03:52 Absolute Basophils 0.1 K/uL (0-0.5) 10/11/19 03:52 PT 11.3 SECONDS (9.5-12.5) 10/10/19 11:10 INR 0.96 10/10/19 11:10 Sodium 141 mmol/L (136-145) 10/11/19 03:52 Potassium 3.7 mmol/L (3.5-5.1) 10/11/19 03:52 Chloride 109 mmol/L (98-107) H 10/11/19 03:52 Carbon Dioxide 27 mmol/L (21-32) 10/11/19 03:52 BUN 11 mg/dL (7-18) 10/11/19 03:52 Creatinine 1.00 mg/dL (0.55-1.3) 10/11/19 03:52 Estimated GFR 77 mL/min (=/>90) L 10/11/19 03:52 Glucose 143 mg/dL (74-106) H 10/11/19 03:52 Calcium 8.4 mg/dL (8.5-10.1) L 10/11/19 03:52 Phosphorus 3.2 mg/dL (2.5-4.9) 10/11/19 03:52 Magnesium 2.0 mg/dL (1.8-2.4) 10/11/19 03:52 Total Bilirubin 0.5 mg/dL (0.2-1.0) 10/11/19 03:52 Direct Bilirubin < 0.1 mg/dL (0-0.2) 10/10/19 11:45 AST 23 U/L (15-37) 10/11/19 03:52 ALT 35 U/L (12-78) 10/11/19 03:52 Alkaline Phosphatase 55 U/L (45-117) 10/11/19 03:52 Creatine Kinase 49 U/L (39-308) 10/11/19 06:52 CK-MB (CK-2) 1.1 ng/mL (0.3-3.6) 10/11/19 06:52 Rapid Troponin I 0.04 ng/mL (0.0-0.045) 10/10/19 12:45 Troponin I 0.02 ng/mL (0.0-0.045) 10/11/19 06:52 NT-Pro-B Natriuret Pep 929 pg/mL (<125) H 10/10/19 11:45 Serum Total Protein 6.9 g/dL (6.4-8.2) 10/11/19 03:52 Albumin 3.6 g/dL (3.4-5.0) 10/11/19 03:52 Globulin 3.3 g/dL (2.3-3.5) D 10/11/19 03:52 Albumin/Globulin Ratio 1.1 (1.1-1.8) 10/11/19 03:52 Triglycerides 143 mg/dL (<150) 10/11/19 03:52 Cholesterol 147 mg/dL (<200) 10/11/19 03:52 LDL Cholesterol, Calc 52 (<130) 10/11/19 03:52 HDL Cholesterol 66 mg/dL (40-60) H 10/11/19 03:52 Cholesterol/HDL Ratio 2.23 10/11/19 03:52 Lipase 135 U/L (73-393) 10/10/19 11:45 TSH 2.360 uIU/mL (0.360-3.740) 10/10/19 12:45 Urine Color Yellow 10/10/19 18:00 Urine Appearance Clear 10/10/19 18:00 Urine pH 7.0 (5.0-7.0) 10/10/19 18:00 Ur Specific [place] 1.020 (1.005-1.030) 10/10/19 18:00 Glucose (UA)(Auto) 1+ (NEG) H 10/10/19 18:00 Urine Ketones Negative (NEG) 10/10/19 18:00 Urine Blood Negative (NEG) 10/10/19 18:00 Urine Nitrite Negative (NEG) 10/10/19 18:00 Urine Bilirubin Negative (NEG) 10/10/19 18:00 Urine Urobilinogen 0.2 mg/dL (0.2-1.0) 10/10/19 18:00 Ur Leukocyte Esterase Negative (NEG) 10/10/19 18:00 Urine Total Protein Negative (NEG) 10/10/19 18:00 Opiates Screen Negative (NEGATIVE) 10/10/19 12:10 Methadone Screen Negative (NEGATIVE) 10/10/19 12:10 Ur Barbiturates Screen Negative (NEGATIVE) 10/10/19 12:10 Ur Phencyclidine Scrn Negative (NEGATIVE) 10/10/19 12:10 Amphetamines Screen Negative (NEGATIVE) 10/10/19 12:10 Benzodiazepines Screen Negative (NEGATIVE) 10/10/19 12:10 Cocaine Screen Positive (NEGATIVE) H 10/10/19 12:10 Ur THC Screen Negative (NEGATIVE) 10/10/19 12:10 Assessment & Plan - Problems (Diagnosis) (1) Chest pain Current Visit: Yes Status: Acute (2) Epigastric abdominal pain Current Visit: Yes Status: Acute (3) Accelerated hypertension Current Visit: Yes Status: Acute (4) Substance abuse Current Visit: Yes Status: Acute (5) Elevated brain natriuretic peptide (BNP) level Current Visit: Yes Status: Acute Plan: Chest pain unspecified Epigastric pain Cholelithiasis Elevated BNP cocaine abuse History of chronic back pain status post spinal stimulator Will trend LFTs If elevated will get surgical consult Monitor under telemetry Trend cardiac enzymes Will get an echocardiogram Acute on aspirin statin Protonix Advised smoking cessation and stop usage of cocaine Antihypertensives titrated GI/DVT prophylaxis Awaiting further recommendations from surgery Possible Dc home if cleared by surgery Time Spent Managing Pts Care (In Minutes): 42
[2019-10-11] MEDS: NA CHLORIDE 0.9% 1,000 ML IV SCH (11:56)
--- NOTE | 2019-10-11 13:42 | P.DS ---
Admission Date: 10/10/19 Discharge Date: 10/11/19 Disposition: ROUTINE DISCHARGE Discharge Condition: GOOD Reason for Admission: Epigastric pain, chest discomfort - Problems (1) Chest pain Status: Acute (2) Epigastric abdominal pain Status: Acute (3) Accelerated hypertension Status: Acute (4) Substance abuse Status: Acute (5) Elevated brain natriuretic peptide (BNP) level Status: Acute Brief History of Present Illness: 58 yrs old Male with past medical history of back pain status post spinal stimulator , on gabapentin presents with complaints of pain located primarily in the substernal area, anterior chest wall, and epigastric area , radiating to back which started 2 days back and has been progressively worsening and was brought to ER. Denies any shortness of breath. No fever no chills . The symptoms are aggravated with moments and food . No nausea vomiting. No recent travel Hospital Course: Chest pain unspecified Epigastric pain Cholelithiasis Elevated BNP cocaine abuse History of chronic back pain status post spinal stimulator The patient was admitted and was monitor closely in telemetry. Cardiac enzymes were trended and was normal. Trended LFTs as well and a surgery consult was done. Surgeon recommended conservative management with outpatient follow up and possible EGD as outpatient and possible evaluation for lap wilber as an outpatient Patient wanted to go home and is being discharged home today in a stable condition with advice to follow up with PCP in 1 week time and also with surgery in 1-2 weeks. continued on aspirin and statin and Protonix at the time of discharge. Advised smoking cessation and stop usage of cocaine Antihypertensives started and titrated Vital Signs/Physical Exam: Temp Pulse Resp BP Pulse Ox 97.7 F 65 18 146/88 H 96 10/11/19 11:05 10/11/19 11:05 10/11/19 12:28 10/11/19 11:05 10/11/19 12:28 General: Alert, In no apparent distress HEENT: Atraumatic, Normocephalic Neck: Supple Respiratory: Clear to auscultation bilaterally Cardiovascular: Regular rate/rhythm, Normal S1 S2 Capillary refill: <2 Seconds Gastrointestinal: Soft and benign, W/out hepatosplenomegaly Musculoskeletal: No clubbing, No swelling Integumentary: No rashes Neurological: Normal strength at 5/5 x4 extr Lymphatics: No axilla or inguinal lymphadenopathy External genitalia: No edema Laboratory Data at Discharge: WBC 10.0 K/uL (4.3-10.9) 10/11/19 03:52 Hgb 13.7 g/dL (13.6-17.9) 10/11/19 03:52 Hct 40.6 % (39.6-49.0) 10/11/19 03:52 Plt Count 286 K/uL (152-406) 10/11/19 03:52 PT 11.3 SECONDS (9.5-12.5) 10/10/19 11:10 INR 0.96 10/10/19 11:10 Sodium 141 mmol/L (136-145) 10/11/19 03:52 Potassium 3.7 mmol/L (3.5-5.1) 10/11/19 03:52 BUN 11 mg/dL (7-18) 10/11/19 03:52 Creatinine 1.00 mg/dL (0.55-1.3) 10/11/19 03:52 Glucose 143 mg/dL (74-106) H 10/11/19 03:52 Phosphorus 3.2 mg/dL (2.5-4.9) 10/11/19 03:52 Magnesium 2.0 mg/dL (1.8-2.4) 10/11/19 03:52 Total Bilirubin 0.5 mg/dL (0.2-1.0) 10/11/19 03:52 AST 23 U/L (15-37) 10/11/19 03:52 ALT 35 U/L (12-78) 10/11/19 03:52 Alkaline Phosphatase 55 U/L (45-117) 10/11/19 03:52 Troponin I 0.02 ng/mL (0.0-0.045) 10/11/19 06:52 Triglycerides 143 mg/dL (<150) 10/11/19 03:52 Cholesterol 147 mg/dL (<200) 10/11/19 03:52 HDL Cholesterol 66 mg/dL (40-60) H 10/11/19 03:52 Cholesterol/HDL Ratio 2.23 10/11/19 03:52 Lipase 135 U/L (73-393) 10/10/19 11:45 Home Medications: Gabapentin 800 mg PO TID 10/10/19 Amlodipine [Norvasc*] 10 mg PO DAILY #30 tab 10/11/19 Atorvastatin Calcium [Lipitor] 40 mg PO BEDTIME #30 tab 10/11/19 Cyclobenzaprine [Flexeril*] 10 mg PO TIDP PRN #20 tab 10/11/19 Hydralazine [Apresoline*] 25 mg PO TID #90 tab 10/11/19 Pantoprazole [Protonix Tab*] 40 mg PO BIDAC #60 tab 10/11/19 New Medications: Amlodipine [Norvasc*] 10 mg PO DAILY #30 tab Atorvastatin Calcium [Lipitor] 40 mg PO BEDTIME #30 tab Cyclobenzaprine [Flexeril*] 10 mg PO TIDP PRN #20 tab PRN Reason: Muscle Spasms Hydralazine [Apresoline*] 25 mg PO TID #90 tab Pantoprazole [Protonix Tab*] 40 mg PO BIDAC #60 tab Diet: AHA Activity: Ad moisés Followup: Jose Kirk MD [Primary Care Provider] - (call to schedule appointment) Humberto Eastman MD [ACTIVE - CAN ADMIT] - Time spent managing pt's care (in minutes): 34
[2019-10-11 14:32] VITALS: BP 151/79; TEMP 97.6
--- NOTE | 2019-10-11 14:38 | CON ---
Date of Consultation: 10/11/2019 Brief History Of Present Illness: Patient is [id number] male with past medical history of back pain, status post morphine pain pump placement over a decade ago and pain pump removal then followed by spinal stimulator placed approximately 8 years ago with no significant improvement on gabapentin with complaints of left lower extremity chronic pain, not improved with pain stimulator. He presents with left upper quadrant abdominal pain radiating to the back and epigastric area. Minimal to the right upper quadrant, predominantly on the left upper quadrant, approximately 2 days ago had been worsening. He denies shortness of breath, sick contacts, recent travel. No nausea, vomiting, it was somewhat aggravated by food. No sick contacts. No recent travel. Past Medical History: Significant for neuropathy, chronic left lower extremity pain and back pain. Past Surgical History: He has had a spinal stimulator placed, morphine pump placed, decompression of his lumbar spine and a 360-degree lumbar fusion. Family History: Reviewed, noncontributory. Social History: He smokes every day. He uses cocaine frequently. Review of Systems: 10-point review of systems other than HPI, denies. Allergies: NO KNOWN DRUG ALLERGIES. Home Medications: Gabapentin only. Physical Examination: Vital Signs: At the time of my examination his BMI is 21.1. pulse 65, respiratory rate 18, temperature 97.7. General: He is awake, alert, and oriented. Psychiatric: He is appropriate, conversive. HEENT: Normocephalic. His sclerae are anicteric. His mucous membranes are moist. Oropharynx clear. Neck: Supple. No JVD. Chest: Normal expansion, excursion. Cardiovascular: Regular rate and rhythm. Pulmonary: Clear to auscultation bilaterally. Abdomen: Soft, nontender, nondistended. No rebound. No guarding. No focal peritonitis. Negative Cruz sign. Back: He has well-healed surgical scars and evidence of stimulator placement on the left flank area. Extremities: No clubbing, cyanosis, edema. Skin: Warm and dry. Laboratory Data: Laboratory exam revealed a white blood cell count of 10.0, hemoglobin 13.7, hematocrit of 40.6, platelet count was 286. His neutrophils were normal at 62%. His PT 11.3, INR 0.96. Sodium 141, potassium 3.7, chloride 109, carbon dioxide 27, BUN 11, creatinine 1.0, glucose is 143, calcium 8.4, phosphorus is 3.2, magnesium 2.0, total bilirubin is 0.5, direct component was less than 0.1 on admission. AST 23, ALT 35, alkaline phosphatase is 55. His lipase was 135 on admission. His cocaine screen was positive on admission. The remainder were negative. He had imaging performed which included a CT dissection, officially read as no acute aortic findings. Gallbladder is distended. If the patient has right upper quadrant symptomatology, follow up gallbladder sonography may be helpful. Abdominal ultrasound performed officially read as large 3-mm mobile gallstones. No other gallbladder or biliary tree abnormality. There is no pericholecystic fluid. No gallbladder wall thickening. No common duct stone or biliary tree dilatation identified. Assessment And Plan: This is a 58-year-old male who presents with left upper quadrant predominant abdominal pain and chest pain of uncertain etiology. 1. I have recommended recreational drug cessation. 2. I have explained that the patient may require endoscopy workup as an outpatient and as such, he will follow up with me with the above-stated followup and workup. The patient does not have a surgical abdomen at this time and I did not recommend cholecystectomy as he has no symptoms indicative of this process. I have explained the risks, benefits, alternatives of the above stated plan, the patient agrees to proceed as indicated. MICHAEL/SRAVAN Voice ID: [id number] Report ID: [id number]
== END 2019-10-11 14:05 | disposition home or self-care (01) ==
LOC: ER 09:18 → ERHOLD 14:59 → 4TH 15:42
PROVIDERS: ADMIT Family Medicine; ATTEND Family Medicine
DX: R07.9 Chest pain, unspecified (principal); R10.13 Epigastric pain; I10 Essential (primary) hypertension; F14.10 Cocaine abuse, uncomplicated; F17.200 Nicotine dependence, unspecified, uncomplicated; R79.89 Other specified abnormal findings of blood chemistry
CPT/HCPCS: 96361; 93005 ×2; 85025 ×2; 80048; 36415 ×2; 83735 ×2; 82550 ×3; 84100; 84132; 85610; 80061; 80076; 80307 ×8; 84443; 81003 ×2; 84484 ×5; 82553 ×3; 83690; 80053; 83880; 71275; 74175; 71045; 76705; 94760 ×3; 96375; 96374; 99285; Q9967; J0360; J2270 ×4; J1170 ×2; J7030 ×3; J2405 ×2; G0378 ×3

== ENCOUNTER 2020-09-30 01:16 | Emergency (ER) | payer OTHER ==
[2020-09-30] MEDS ORDERED: MEPERIDINE HCL 25 MG/ML SYR ONE (03:06)
[2020-09-30 03:33] LABS: Hematocrit 42.9 % (39.6-49.0); RBC Red Blood Cell Count 4.65 M/uL (4.33-5.43)
[2020-09-30 03:34] LABS: Absolute Lymphocytes (CBC) 2.3 K/uL (0.7-4.9); Basophils % 0.7 % (0-1.3); Lymphocytes % 21.1 % (15.3-44.8); MPV 7.9 fL (7.6-11.3)
[2020-09-30 03:47] LABS: ALT/SGPT 52 U/L (12-78); AST/SGOT 37 U/L (15-37); Albumin 4.1 g/dL (3.4-5.0); Alkaline Phosphatase 60 U/L (45-117); BUN Blood Urea Nitrogen 22 mg/dL (7-18); Bicarbonate 25 mmol/L (21-32); Bilirubin Direct 0.1 mg/dL (0-0.2); Bilirubin Total 0.4 mg/dL (0.2-1.0); Glucose Level 124 mg/dL (74-106); Lipase 139 U/L (73-393); Potassium 3.8 mmol/L (3.5-5.1); Protein, Total 8.3 g/dL (6.4-8.2); Sodium Level 141 mmol/L (136-145); Troponin (Emerg Dept Use Only) < 0.02 ng/mL (0.0-0.045)
--- NOTE | 2020-09-30 03:55 | EDPHYS ---
Physician Documentation [facility] Name: Pillo Pickens Age: 59 yrs Sex: Male : 1960 Arrival Date: 09/30/2020 Time: :18 Bed 24 Private MD: ED Physician Feliz Bourne HPI: 09/30 02:40 This 59 yrs old Male presents to ER via Ambulatory with complaints of side rn chest pain. 02:40 The patient or guardian reports chest pain that is located primarily in the right rn lateral anterior chest. Onset: last night. The pain does not radiate. Associated signs and symptoms: Pertinent negatives: abdominal pain, cough, diaphoresis, dizziness, lower extremity swelling, recent travel, shortness of breath, syncope, vomiting. The chest pain is described as sharp, stabbing. Duration: The patient or guardian reports multiple episodes, that are intermittent. Modifying factors: The symptoms are alleviated by nothing. the symptoms are aggravated by deep breath. Severity of pain: At its worst the pain was moderate in the emergency department the pain has improved. The patient has experienced a previous episode. The patient has not recently seen a physician. Reports right sided chest pain, worse with deep breath, began last night, no fever/cough/diaphoresis. Reports neg nuclear stress test with Dr. macias 1 month ago. States had this in past and told by pcp "was lining of lung". + smoker. 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 NO direct trauma. No abd pain/vomiting. Does report heartburn and diarrhea last night but attributes it to food he ate. . Historical: - Allergies: 01:34 No Known Allergies; sg - PMHx: 01:34 bacterial meningitits (2012); Chronic pain; sg - PSHx: 01:34 spinal fusion; electrical stiumlator (is not on/ does not work); sg - Immunization history:: Adult Immunizations up to date. - Social history:: Smoking status: Patient denies any tobacco usage or history of. - Family history:: not pertinent. - Hospitalizations: : No recent hospitalization is reported. ROS: 02:40 Constitutional: Negative for fever, chills, and weight loss, Eyes: Negative for injury, rn pain, redness, and discharge, ENT: Negative for injury, pain, and discharge, Neck: Negative for injury, pain, and swelling, Cardiovascular: Negative for palpitations, and edema, Respiratory: Negative for shortness of breath, cough, wheezing Abdomen/GI: Negative for abdominal pain, nausea, vomiting, and constipation, Back: Negative for injury and pain, MS/Extremity: Negative for injury and deformity, Skin: Negative for injury, rash, and discoloration, Neuro: Negative for headache, weakness, numbness, tingling, and seizure. Exam: 02:40 Constitutional: This is a well developed, well nourished patient who is awake, alert, rn and in no acute distress. Head/Face: Normocephalic, atraumatic. Cardiovascular: Regular rate and rhythm Respiratory: Speaking full sentences. No increased work of breathing, no retractions or nasal flaring. Abdomen/GI: soft, non-tender Skin: Warm, dry MS/ Extremity: Pulses equal, no cyanosis. Neurovascular intact. Full, normal range of motion. Equal circumference. Neuro: Awake and alert, GCS 15 03:54 ECG was reviewed by the Attending Physician. rn Vital Signs: 02:20 BP 197 / 107; Pulse 87; Resp 16; Pulse Ox 99% on R/A; Pain 3/10; sg 03:37 BP 198 / 95; Pulse 62; Resp 18; Pulse Ox 98% on R/A; ea 04:42 BP 180 / 90; Pulse 60; Resp 18; Pulse Ox 92% ; ea MDM: 02:23 Patient medically screened. rn 03:52 Differential diagnosis: acute myocardial infarction, acute pericarditis, anxiety, chest rn wall pain, costochondritis, esophagitis, gastritis, gastroesophageal reflux disease (GERD), pancreatitis, pericarditis, pleurisy, pneumonia, pneumothorax, pulmonary embolus. Data reviewed: vital signs, nurses notes, lab test result(s), EKG, radiologic studies, plain films, and as a result, I will discharge patient. Test interpretation: by ED physician or midlevel provider: ECG, plain radiologic studies, CXR neg for pneumothorax or acute infiltrate. Counseling: I had a detailed discussion with the patient and/or guardian regarding: the historical points, exam findings, and any diagnostic results supporting the discharge/admit diagnosis, lab results, radiology results, the need for outpatient follow up, to return to the emergency department if symptoms worsen or persist or if there are any questions or concerns that arise at home. Counseling: I had a detailed discussion with the patient and/or guardian regarding: smoking cessation. Response to treatment: the patient's symptoms have mildly improved after treatment, and as a result, I will discharge patient. Special discussion: Based on the patient's history, exam, and Dx evaluation, there is no indication for emergent intervention or inpatient Tx. It is understood by the patient/guardian that if the Sx's persist or worsen they need to return immediately for re-evaluation. I discussed with the patient/guardian in detail that at this point there is no indication for admission to the hospital. It is understood, however, that if the symptoms persist or worsen the patient needs to return immediately for re-evaluation. 03:52 ED course: No ischemia on ecg, neg cxr, neg trop, neg nuclear stress test 1 month ago, rn kim d-dimer, will dc home with return precautions and recommend smoking cessation.. 09/30 02:38 Order name: LFT's rn 09/30 02:38 Order name: Basic Metabolic Panel 09/30 02:38 Order name: CBC with Diff; Complete Time: 03:47 09/30 02:38 Order name: Troponin (emerg Dept Use Only) 09/30 02:38 Order name: Lipase; Complete Time: 03:47 09/30 02:38 Order name: D-Dimer; Complete Time: 03:47 09/30 02:38 Order name: XRAY Chest (1 view) 09/30 02:38 Order name: EKG; Complete Time: 02:39 09/30 02:38 Order name: Cardiac monitoring; Complete Time: 03:13 09/30 02:39 Order name: Liver (Hepatic) Function; Complete Time: 03:47 EDMS 09/30 02:39 Order name: Basic Metabolic Panel; Complete Time: 03:47 EDMS 09/30 02:39 Order name: Troponin (Emerg Dept Use Only); Complete Time: 03:47 EDMS 09/30 02:38 Order name: EKG - Nurse/Tech; Complete Time: 03:13 rn 09/30 02:38 Order name: IV Saline Lock; Complete Time: 03:13 rn 09/30 02:38 Order name: Labs collected and sent; Complete Time: 03:13 09/30 02:38 Order name: O2 Per Protocol; Complete Time: 03:13 rn 09/30 02:38 Order name: O2 Sat Monitoring; Complete Time: 03:13 rn EC:54 Rate is 58 beats/min. Rhythm is regular. QRS [place] is Normal. CT interval is normal. QRS rn interval is normal. QT interval is normal. No Q waves. T waves are Normal. No ST changes noted. Clinical impression: Sinus bradycardia. Interpreted by me. Reviewed by me. Administered Medications: 03:12 Drug: Demerol 25 mg Route: IVP; Site: right forearm; ea 04:56 Follow up: Response: No adverse reaction; RASS: Alert and Calm (0) ea 04:56 Drug: TORadol - Ketorolac 15 mg Route: IVP; Site: right forearm; ea 04:57 Follow up: Response: No adverse reaction ea Disposition: 09/30/20 03:54 Discharged to Home. Impression: Chest pain, unspecified. - Condition is Stable. - Discharge Instructions: Nonspecific Chest Pain, Chest Wall Pain, Pain Without a Known Cause, Pleurisy. - Medication Reconciliation Form, Thank You Letter, Antibiotic Education, Prescription Opioid Use form. - Follow up: Private Physician; When: As needed; Reason: Recheck today's complaints, Re-evaluation by your physician. - Problem is new. - Symptoms have improved. Signatures: Dispatcher [employer] EDIgnacio Arredondo RN RN sg Nieto, Roman, MD MD rn Antunez, Elena, RN RN ea Corrections: (The following items were deleted from the chart) 04:59 03:54 09/30/2020 03:54 Discharged to Home. Impression: Chest pain, unspecified. ea Condition is Stable. Forms are Medication Reconciliation Form, Thank You Letter, Antibiotic Education, Prescription Opioid Use. Follow up: Private Physician; When: As needed; Reason: Recheck today's complaints, Re-evaluation by your physician. Problem is new. Symptoms have improved. rn
--- NOTE | 2020-09-30 03:55 | ER ---
Nurse's Notes [facility] Name: Pillo Pickens Age: 59 yrs Sex: Male : 1960 Arrival Date: 09/30/2020 Time: :18 Bed 24 Private MD: Diagnosis: Chest pain, unspecified Presentation: 09/30 01:34 Chief complaint: Patient states: Right Sided rib pain and upper back/shoulder pain that sg began two days ago, reports having this same pain approx 3 years ago, was admitted for 3 days and sent home with unknown cause of the pain, reports felt better after treatment just was not sure what the cause was, no other complaints reported at this time. Coronavirus screen: Client denies travel out of the [place] in the last 14 days. At this time, the client does not indicate any symptoms associated with coronavirus-19. Ebola Screen: Patient negative for fever greater than or equal to 101.5 degrees Fahrenheit, and additional compatible Ebola Virus Disease symptoms Patient denies exposure to infectious person. Patient denies travel to an Ebola-affected area in the 21 days before illness onset. No symptoms or risks identified at this time. Initial Sepsis Screen: Does the patient meet any 2 criteria? No. Patient's initial sepsis screen is negative. Does the patient have a suspected source of infection? No. Patient's initial sepsis screen is negative. Risk Assessment: Do you want to hurt yourself or someone else? Patient reports no desire to harm self or others. Onset of symptoms was September 30, 2020. Care prior to arrival: None. Activity prior to arrival: None. Mechanism of Injury: No Mechanism of Injury. Transition of care: patient was not received from another setting of care. 01:34 Method Of Arrival: Ambulatory sg 01:34 Acuity: SHADY 3 sg Historical: - Allergies: 01:34 No Known Allergies; sg - PMHx: 01:34 bacterial meningitits (2012); Chronic pain; sg - PSHx: :34 spinal fusion; electrical stiumlator (is not on/ does not work); sg - Immunization history:: Adult Immunizations up to date. - Social history:: Smoking status: Patient denies any tobacco usage or history of. - Family history:: not pertinent. - Hospitalizations: : No recent hospitalization is reported. Screenin:43 Abuse screen: Denies threats or abuse. Nutritional screening: No deficits noted. ea Tuberculosis screening: No symptoms or risk factors identified. Fall Risk None identified. Assessment: 03:13 General: Appears uncomfortable, Behavior is appropriate for age. Pain: Complains of ea pain in right lateral anterior chest. Neuro: Level of Consciousness is awake, alert, obeys commands, Oriented to person, place, time. Respiratory: Airway is patent Respiratory effort is even, unlabored, Respiratory pattern is regular, symmetrical. Derm: Skin is pink, warm \T\ dry. 04:57 Reassessment: Patient and/or family updated on plan of care and expected duration. Pain ea level reassessed. Patient is alert, oriented x 3, equal unlabored respirations, skin warm/dry/pink. Discharge instruction given to patient, verbalized the understanding of instruction. Pt left ED ambulatory tolerating well. Family awaiting in waiting room. Vital Signs: 02:20 BP 197 / 107; Pulse 87; Resp 16; Pulse Ox 99% on R/A; Pain 3/10; sg 03:37 BP 198 / 95; Pulse 62; Resp 18; Pulse Ox 98% on R/A; ea 04:42 BP 180 / 90; Pulse 60; Resp 18; Pulse Ox 92% ; ea ED Course: 01:18 Patient arrived in ED. cl3 01:34 Arm band placed on. sg 02:23 Feliz Bourne MD is Attending Physician. rn 02:29 Triage completed. sg 02:43 Sangita Barkley, JHONATAN is Primary Nurse. ea 02:57 XRAY Chest (1 view) In Process Unspecified. EDMS 03:13 Patient has correct armband on for positive identification. Bed in low position. Call ea light in reach. monitoring tech on. Pulse ox on. NIBP on. 03:15 Inserted saline lock: 20 gauge in right forearm, using aseptic technique. ea 04:42 No provider procedures requiring assistance completed. ea 04:57 IV discontinued, intact, bleeding controlled, No redness/swelling at site. Pressure ea dressing applied. Administered Medications: 03:12 Drug: Demerol 25 mg Route: IVP; Site: right forearm; ea 04:56 Follow up: Response: No adverse reaction; RASS: Alert and Calm (0) ea 04:56 Drug: TORadol - Ketorolac 15 mg Route: IVP; Site: right forearm; ea 04:57 Follow up: Response: No adverse reaction ea Outcome: 03:54 Discharge ordered by . rn 04:57 Discharged to home ambulatory, with family. lauren 04:57 Condition: stable 04:57 Discharge instructions given to patient, Instructed on discharge instructions, follow up and referral plans. Demonstrated understanding of instructions, follow-up care. 04:59 Patient left the ED. lauren Signatures: Dispatcher [employer] EDIgnacio Arredondo RN RN sg Nieto, Roman, MD MD rn Antunez, Elena, RN RN ea Lewis, Charde cl3 Corrections: (The following items were deleted from the chart) 02:47 01:34 Acuity: SHADY 4 greg garza
[2020-09-30] MEDS ORDERED: KETOROLAC 30 MG/ML INJ ONE (04:46)
[2020-09-30 05:18] VITALS: BP 180/90; O2SAT 92
--- NOTE | 2020-09-30 08:12 | RAD REPORT ---
EXAM DESCRIPTION: RAD - Chest Single View - 09/30/2020 2:57 am CLINICAL HISTORY: CHEST PAIN, right-sided rib pain COMPARISON: June 2020 TECHNIQUE: AP portable chest image was obtained 09/30/2020 2:57 am . FINDINGS: Lungs are clear. Heart and vasculature are normal. No measurable pleural effusion and no p neumothorax. No acute bony abnormality seen. No acute aortic findings suspected. IMPRESSION: No acute cardiopulmonary process. No significant change from comparison study.
== END 2020-09-30 04:59 | disposition home or self-care (01) ==
LOC: ER 01:16
DX: R07.9 Chest pain, unspecified (principal)
CPT/HCPCS: 85025; 80048; 36415; 85379; 80076; 84484; 83690; 71045; 96375; 96374; 99284; J2175

== ENCOUNTER 2021-04-12 20:57 | Emergency (ER) | payer OTHER ==
[2021-04-12 21:49] LABS: Absolute Lymphocytes (CBC) 2.6 K/uL (0.7-4.9); Basophils % 1.2 % (0-1.3); Hematocrit 39.8 % (39.6-49.0); Lymphocytes % 22.4 % (15.3-44.8); MPV 7.1 fL (7.6-11.3); RBC Red Blood Cell Count 4.11 M/uL (4.33-5.43)
[2021-04-12 22:12] LABS: Albumin 4.3 g/dL (3.4-5.0); Bilirubin Direct 0.1 mg/dL (0-0.2); Bilirubin Total 0.2 mg/dL (0.2-1.0); Protein, Total 8.3 g/dL (6.4-8.2)
[2021-04-13] MEDS ORDERED: FAMOTIDINE 20 MG/2 ML VIAL IV ONE (00:28)
[2021-04-13] MEDS ORDERED: MORPHINE 4 MG/ML SYR ONE (00:28)
[2021-04-13] MEDS ORDERED: ONDANSETRON 4 MG/2 ML VIAL ONE (00:28)
--- NOTE | 2021-04-13 00:58 | EDPHYS ---
Physician Documentation [facility] Name: Pillo Pickens Age: 60 yrs Sex: Male : 1960 Arrival Date: 04/12/2021 Time: 21:03 Bed 12 Private MD: Jose Kirk E ED Physician Guilherme Mccord HPI: 04/12 23:57 This 60 yrs old Male presents to ER via Ambulatory with complaints of m Abdominal Pain. 23:57 The patient presents with abdominal pain. Onset: The symptoms/episode began/occurred jmm gradually, today. The symptoms radiate to Associated signs and symptoms: Pertinent negatives: diarrhea, vomiting. The symptoms are described as achy, sharp. The patient has experienced a previous episode. Historical: - Allergies: 21:35 No Known Allergies; iw - Home Meds: 21:35 gabapentin 800 mg Oral tab 1 tab 3 times per day [Active]; iw - PMHx: 21:35 bacterial meningitits (2012); Chronic pain; iw - PSHx: 21:35 L5 S1 fusion; iw - Immunization history:: Client reports receiving the 2nd dose of the Covid vaccine. - Social history:: Smoking status: Patient reports the use of cigarette tobacco products, smokes one pack cigarettes per day. ROS: 23:58 Constitutional: Negative for fever, chills, and weight loss, Cardiovascular: Negative jmm for chest pain, palpitations, and edema, Respiratory: Negative for shortness of breath, cough, wheezing, and pleuritic chest pain. 23:58 Abdomen/GI: Positive for abdominal pain. 23:58 All other systems are negative. Exam: 23:58 Constitutional: This is a well developed, well nourished patient who is awake, alert, jmm and in no acute distress. Head/Face: atraumatic. Eyes: EOMI, no conjunctival erythema appreciated ENT: Moist Mucus Membranes Neck: Trachea midline, Supple Chest/axilla: Normal chest wall appearance and motion. Cardiovascular: Regular rate and rhythm. No edema appreciated Respiratory: Normal respirations, no respiratory distress appreciated 23:58 Abdomen/GI: Inspection: abdomen appears normal, Bowel sounds: normal, Palpation: soft, mild abdominal tenderness, in the right upper quadrant, left upper quadrant, right lower quadrant and left lower quadrant. 23:58 Back: pain, is absent, CVA tenderness, is absent. 23:58 Musculoskeletal/extremity: ROM: intact in all extremities. 23:58 Skin: Appearance: Color: normal in color. 23:58 Neuro: Orientation: is normal, Mentation: is normal, Memory: is normal. 23:58 Psych: Behavior/mood is pleasant, cooperative. Vital Signs: 21:34 BP 182 / 82; Pulse 81; Resp 16; Temp 98.7; Pulse Ox 99% on R/A; Weight 63.5 kg; Height iw 5 ft. 7 in. (170.18 cm); Pain 8; 04/13 01:13 BP 119 / 65; Pulse 97; Resp 18; Pulse Ox 100% on R/A; Pain 210; wg 04/12 21:34 Body Mass Index 21.93 (63.50 kg, 170.18 cm) iw MDM: 04/12 23:57 Patient medically screened. [facility] 04/13 00:56 Data reviewed: vital signs, nurses notes. Counseling: I had a detailed discussion with carmel the patient and/or guardian regarding: the historical points, exam findings, and any diagnostic results supporting the discharge/admit diagnosis, lab results, radiology results, the need for outpatient follow up, to return to the emergency department if symptoms worsen or persist or if there are any questions or concerns that arise at home. ED course: Pain relieved in the ED. Patient advised to follow up with gen surgery for reevaluation. Patient is otherwise given strict return precautions. patient understood and agrees with the plan of care. . 04/12 21:36 Order name: Basic Metabolic Panel; Complete Time: 23:42 04/12 21:36 Order name: CBC with Diff; Complete Time: 23:42 04/12 21:36 Order name: Hepatic Function; Complete Time: 23:42 04/12 21:36 Order name: Lipase; Complete Time: 23:42 04/12 23:43 Order name: CT Abd/Pelvis - IV Contrast Only [facility] 04/12 21:36 Order name: IV Saline Lock; Complete Time: 21:53 04/12 21:36 Order name: Labs collected and sent; Complete Time: 21:53 iw Administered Medications: 00:45 Drug: Pepcid (famotidine) 20 mg Route: IVP; Site: right antecubital; em 01:14 Follow up: Response: No adverse reaction wg 00:45 Drug: morphine 4 mg Route: IVP; Site: right antecubital; em 01:14 Follow up: Response: No adverse reaction wg 00:45 Drug: Zofran (Ondansetron) 4 mg Route: IVP; Site: right antecubital; em 01:14 Follow up: Response: No adverse reaction wg 01:00 Drug: Ketorolac 30 mg Route: IVP; Rate: bolus; Infused Over: 1 mins; Site: right wg antecubital; 01:12 Follow up: Response: No adverse reaction; Pain is decreased wg Disposition: 06:56 Co-signature as Attending Physician, Guilherme Mccord MD. ma2 06:57 PA/ENROBING MACHINE CORDER's history reviewed, patient interviewed, and examined. I agree with assessment ma2 and care plan and confirm the diagnosis (es) above. Disposition Summary: 04/13/21 00:58 Discharge Ordered Location: Home [facility] Condition: Stable [facility] Diagnosis - Abdominal pain, unspecified [facility] Followup: [facility] - With: Humberto Eastman MD - When: 2 - 3 days - Reason: Recheck today's complaints, Continuance of care, Re-evaluation by your physician Discharge Instructions: - Discharge Summary Sheet [facility] - Abdominal Pain, Adult [facility] Forms: - Medication Reconciliation Form [facility] - Thank You Letter [facility] - Antibiotic Education [facility] - Prescription Opioid Use [facility] Prescriptions: - dicyclomine 20 mg Oral tablet - take 1 tablet by ORAL route 4 times per day; 20 tablet; Refills: 0, Product [facility] Selection Permitted - ondansetron 4 mg Oral tablet,disintegrating - take 1 tablet by ORAL route every 4-6 hours for 2 days; 20 tablet; Refills: 0, [facility] Product Selection Permitted - Pepcid 20 mg Oral Tablet - take 1 tablet by ORAL route every 12 hours for 10 days; 20 tablet; Refills: 0, [facility] Product Selection Permitted Signatures: Dispatcher [employer] Marek Hinton PA PA jmm Munoz, Edgar, RN RN em Williams, Irene, RN RN iw Alzahri, Mohammad, MD MD ma2 Gamba, Liam, RN wg
--- NOTE | 2021-04-13 00:58 | ER ---
Nurse's Notes [facility] Name: Pillo Pickens Age: 60 yrs Sex: Male : 1960 Arrival Date: 04/12/2021 Time: 21:03 Bed 12 Private MD: Jose Kirk E Diagnosis: Abdominal pain, unspecified Presentation: 04/12 21:34 Chief complaint: Patient states: mid abd pain started this morning, worse now, denies iw n/v/d. Coronavirus screen: At this time, the client does not indicate any symptoms associated with coronavirus-19. Ebola Screen: Patient negative for fever greater than or equal to 101.5 degrees Fahrenheit, and additional compatible Ebola Virus Disease symptoms Patient denies exposure to infectious person. Patient denies travel to an Ebola-affected area in the 21 days before illness onset. No symptoms or risks identified at this time. Initial Sepsis Screen: Does the patient meet any 2 criteria? No. Patient's initial sepsis screen is negative. Does the patient have a suspected source of infection? No. Patient's initial sepsis screen is negative. Risk Assessment: Do you want to hurt yourself or someone else? Patient reports no desire to harm self or others. Onset of symptoms was April 12, 2021. 21:34 Method Of Arrival: Ambulatory iw 21:34 Acuity: SHADY 3 iw Historical: - Allergies: 21:35 No Known Allergies; iw - Home Meds: 21:35 gabapentin 800 mg Oral tab 1 tab 3 times per day [Active]; iw - PMHx: 21:35 bacterial meningitits (2012); Chronic pain; iw - PSHx: 21:35 L5 S1 fusion; iw - Immunization history:: Client reports receiving the 2nd dose of the Covid vaccine. - Social history:: Smoking status: Patient reports the use of cigarette tobacco products, smokes one pack cigarettes per day. Screenin:55 Abuse screen: Denies threats or abuse. Denies injuries from another. Nutritional iw screening: No deficits noted. Tuberculosis screening: No symptoms or risk factors identified. Fall Risk None identified. Assessment: 23:54 General: Appears in no apparent distress. Behavior is calm, cooperative. Pain: iw Complains of pain in abdomen. Neuro: Level of Consciousness is awake, alert, obeys commands, Oriented to person, place, time, situation. Cardiovascular: Patient's skin is warm and dry. Respiratory: Respiratory effort is even, unlabored. GI: Bowel sounds present X 4 quads. Abd is soft X 4 quads. Derm: Skin is intact, is healthy with good turgor. Musculoskeletal: Range of motion: intact in all extremities. Vital Signs: 21:34 BP 182 / 82; Pulse 81; Resp 16; Temp 98.7; Pulse Ox 99% on R/A; Weight 63.5 kg; Height iw 5 ft. 7 in. (170.18 cm); Pain 8/10; 04/13 01:13 BP 119 / 65; Pulse 97; Resp 18; Pulse Ox 100% on R/A; Pain 2/10; wg 04/12 21:34 Body Mass Index 21.93 (63.50 kg, 170.18 cm) iw ED Course: 04/12 21:03 Patient arrived in ED. mr 21:04 Jose Kirk MD is Private Physician. mr 21:35 Triage completed. iw 21:36 Arm band placed on. iw 21:53 Inserted saline lock: 20 gauge in right antecubital area, using aseptic technique. iw 23:42 Marek Peterson PA is PHCP. jmm 23:42 Guilherme Mccord MD is Attending Physician. jmm 23:54 Debra Hopper, JHONATAN is Primary Nurse. iw 04/13 00:18 CT Abd/Pelvis - IV Contrast Only In Process Unspecified. EDMS 00:57 Humberto Eastman MD is Referral Physician. m 01:15 IV discontinued, intact, bleeding controlled, No redness/swelling at site. Pressure wg dressing applied. Administered Medications: 00:45 Drug: Pepcid (famotidine) 20 mg Route: IVP; Site: right antecubital; em 01:14 Follow up: Response: No adverse reaction wg 00:45 Drug: morphine 4 mg Route: IVP; Site: right antecubital; em 01:14 Follow up: Response: No adverse reaction 00:45 Drug: Zofran (Ondansetron) 4 mg Route: IVP; Site: right antecubital; em 01:14 Follow up: Response: No adverse reaction 01:00 Drug: Ketorolac 30 mg Route: IVP; Rate: bolus; Infused Over: 1 mins; Site: right wg antecubital; 01:12 Follow up: Response: No adverse reaction; Pain is decreased Outcome: 00:58 Discharge ordered by MD. burt 01:15 Discharged to home ambulatory. wg 01:15 Condition: stable 01:15 Discharge instructions given to patient, Instructed on discharge instructions, follow up and referral plans. medication usage, Demonstrated understanding of instructions, follow-up care, medications, Prescriptions given X 3. 01:16 Patient left the ED. wg Signatures: Dispatcher [employer] EDaMrek Garcia PA PA jmm Rivera, Mary mr Munoz, Edgar, RN RN Debra Pickard RN RN iw Gamba, Liam, RN wg
[2021-04-13] MEDS ORDERED: KETOROLAC 30 MG/ML INJ ONE (01:28)
[2021-04-13 01:29] VITALS: TEMP 98.7
[2021-04-13 01:31] VITALS: BP 119/65; O2SAT 100
--- NOTE | 2021-04-13 10:52 | RAD REPORT ---
EXAM DESCRIPTION: CT - Abdomen Pelvis W Contrast - 04/13/2021 6:43 am CLINICAL HISTORY: Abdominal pain COMPARISON: 10/10/2019. TECHNIQUE: CT ABDOMEN PELVIS WITH IV CONTRAST on 04/12/2021 11:43 PM CDT This exam was performed according to our departmental dose-optimization program, which includes autom ated exposure control, adjustment of the mA and/or kV according to patient size and/or use of iterati ve reconstruction technique. FINDINGS: Lower lungs are clear. Abdomen: The liver is normal in appearance. There is no biliary dilatation. Gallbladder is grossly di stended measuring at least 14.2 cm in length. The pancreas and spleen are normal in appearance. The a drenal glands and kidneys are unremarkable. Abdominal aorta is normal in course and caliber without aneurysm. There is no free air. There is no r etroperitoneal adenopathy. There is no significant wall thickening or pericholecystic inflammation. Pelvis: There is mild distal colonic diverticulosis. Urinary bladder is unremarkable. There is no sushant e fluid. Appendix is normal. Skeleton: There are no acute osseous findings. No suspicious bony lesions. There is a spinal stimulat or in place with the generator in the left flank. IMPRESSION: Grossly distended gallbladder. Otherwise no acute inflammatory process. Electronically signed by: Cali Garrett MD 04/13/2021 12:42 AM CDT Due to temporary technical issues with the PACS/Fluency reporting system, reports are being signed by the in house radiologist without review as a courtesy to ensure prompt reporting. The interpreting r adiologist is fully responsible for the content of the report.
== END 2021-04-13 01:16 | disposition home or self-care (01) ==
LOC: ER 20:57
DX: R10.9 Unspecified abdominal pain (principal); G89.29 Other chronic pain; F17.210 Nicotine dependence, cigarettes, uncomplicated
CPT/HCPCS: 85025; 80048; 36415; 80076; 83690; 74177; Q9967; J2405

== ENCOUNTER 2022-03-31 09:33 | Emergency (ER) | payer OTHER ==
--- OUTSIDE RECORDS SUMMARY | 2022-03-31 09:35 | XMS REPORT | Continuity of Care Document ---
:1960 Author Organization [facility] t Address [address] [place] [address] Care Team Providers Name Role Phone YelenaJose Vanessa Primary Care Physician Juliocesar CORTEZ, Mickey Kidd Attending Clinician Payers Payer Name Policy Type Policy Number Effective Date Expiration Date S ource Problems Condition Condition Condition Status Onset Resolution Last Treating Co mments Source Name Details Category Date Date Treatment Clinician Date No known No known Disease Unive rs active active ity of problems problems [facility] Allergies, Adverse Reactions, Alerts This patient has no known allergies or adverse reactions. Social History Social Habit Start Date Stop Date Quantity Comments Source Exposure to 2022-01-10 2022-01-20 Not sure [facility] SARS-CoV-2 (event) 00:00:00 13:48:00 [facility] Sex Assigned At [birth year] [facility] 00:00:00 00:00:00 [facility] [place] Smoking Status Start Date Stop Date Source Unknown if ever smoked [facility] Medications Ordered Filled Start Stop Current Ordering Indication Dosage Frequency Signature Comments Components Source Medication Medication Date Date Medication? Clinician (SIG) Name Name gabapentin Yes [id number] 800mg Take 2 [facility] (NEURONTIN) 6-10 capsules ity of 400 mg 00:00: by mouth 3 [place] capsule 00 (three) [facility] [place] daily. gabapentin Yes [id number] 800mg Take 2 [facility] (NEURONTIN) 6-10 capsules ity of 400 mg 00:00: by mouth 3 [place] capsule 00 (three) [facility] [place] daily. Immunizations Ordered Filled Immunization Date Status Comments Sourc e Immunization Name Name SARS-COV-2 COVID-19 2021-04-20 Completed Unive rsity of MODERNA VACCINE 00:00:00 [facility] SARS-COV-2 COVID-19 2021-04-20 Completed Unive rsity of MODERNA VACCINE 00:00:00 [facility] SARS-COV-2 COVID-19 2020-10-18 Completed Unive rsity of MODERNA VACCINE 00:00:00 [facility] SARS-COV-2 COVID-19 2020-10-18 Completed Unive rsity of MODERNA VACCINE 00:00:00 [facility] SARS-COV-2 COVID-19 2020-09-20 Completed Unive rsity of MODERNA VACCINE 00:00:00 [facility] SARS-COV-2 COVID-19 2020-09-20 Completed Unive rsity of MODERNA VACCINE 00:00:00 [facility] Vital Signs Vital Name Observation Time Observation Value Comments Source Systolic blood 2022-01-20 19:01:00 158 mm[Hg] [facility] Diastolic blood 2022-01-20 19:01:00 95 mm[Hg] [facility] Heart rate 2022-01-20 19:00:00 81 /min [facility] Body height 2022-01-20 19:00:00 170.2 cm [facility] Body weight 2022-01-20 19:00:00 69.854 kg [facility] BMI 2022-01-20 19:00:00 24.12 kg/m2 [facility] Oxygen saturation 2022-01-20 19:00:00 91 /min [facility] in Arterial blood [facility] by Pulse oximetry Procedures This patient has no known procedures. Encounters Start End Encounter Admission Attending Care Care Encounter Source Date/Time Date/Time Type Type Clinicians Facility Department ID 2022-01-20 2022-01-20 Office TARIQ Gandara [id number] [facility] 13:30:00 14:30:46 Visit Mickey JENKINS [id number] ity Francine QURESHI [id number] [facility] [id number] [address] [facility] Results This patient has no known results.
[2022-03-31] MEDS ORDERED: NA CHLORIDE 0.9% 1,000 ML ONE ×2 (10:22→12:44)
[2022-03-31] MEDS ORDERED: MORPHINE 4 MG/ML SYR ONE (10:22)
[2022-03-31] MEDS ORDERED: ONDANSETRON 4 MG/2 ML VIAL ONE (10:22)
[2022-03-31 10:46] LABS: Absolute Lymphocytes (CBC) 2.4 K/uL (0.7-4.9); Lymphocytes % 20.7 % (15.3-44.8); MCV 90.4 fL (80-100); MPV 7.4 fL (7.6-11.3); RBC Red Blood Cell Count 4.65 M/uL (4.33-5.43)
--- NOTE | 2022-03-31 10:55 | RAD REPORT ---
EXAM DESCRIPTION: RAD - Chest Single View - 03/31/2022 10:49 am CLINICAL HISTORY: epigastric pain COMPARISON: Chest Single View dated 09/30/2020; Chest Pa And Lat (2 Views) dated 06/15/2020; Chest Sin gle View dated 10/10/2019; CHEST SINGLE VIEW dated 03/17/2009 FINDINGS: Lines: None. Lungs: No evidence of edema or pneumonia. Pleural: No significant pleural effusions or pneumothorax. Cardiac: The heart size is within normal limits. Bones: No acute fractures. Other: IMPRESSION: No acute cardiopulmonary disease.
[2022-03-31 11:07] LABS: Urine Blood Negative (Negative); Urine Glucose Negative (Negative); Urine Protein Negative (Negative)
[2022-03-31 11:48] LABS: Albumin 4.2 g/dL (3.4-5.0); Bilirubin Total 0.2 mg/dL (0.2-1.0); Protein, Total 8.7 g/dL (6.4-8.2); Troponin High Sensitivity 8.1 pg/mL (<58.9)
[2022-03-31 11:49] LABS: Potassium 3.7 mmol/L (3.5-5.1)
[2022-03-31] MEDS ORDERED: HYDROMORPHONE HCL 1 MG/ML INJ ONE ×4 (11:53→18:10)
[2022-03-31 11:58] LABS: Urine Bacteria <20 /HPF (<20); Urine RBC None Seen /HPF (None Seen)
--- NOTE | 2022-03-31 12:12 | RAD REPORT ---
EXAM DESCRIPTION: CTAbdomen Pelvis W Contrast - 03/31/2022 12:01 pm CLINICAL HISTORY: Epigastric pain COMPARISON: Abdomen Pelvis W Contrast dated 04/13/2021 TECHNIQUE: CT of the abdomen and pelvis was performed. All CT scans are performed using dose optimization technique as appropriate and may include automated exposure control or mA/KV adjustment according to patient size. FINDINGS: Lower chest: No acute abnormality. Circumferentially thickened distal esophagus. Liver: Hepatic steatosis. Biliary: Markedly dilated gallbladder. This is similar to 04/13/2021. Gallbladder measures over 12 cm in long axis. Stomach: No significant focal abnormality. Duodenum: No significant focal abnormality. Pancreas: Pain stranding is suspected around the pancreatic head and uncinate. Spleen: No significant abnormality. Adrenal: No suspicious lesions. Kidney/ureter: No hydronephrosis. No renal calculi. Retroperitoneum: No retroperitoneal adenopathy. Vascular: No aneurysm. Atherosclerosis Bowel: No significant focal abnormality. Peritoneum: No ascites or free air. Bladder: Grossly unremarkable. Reproductive: No adnexal masses. Bones: No acute fracture. Bone graft harvest site in the left iliac bone. Spinal stimulator. Interbod y spacer at L5-S1. A screw is present at L5. Other: n/a IMPRESSION: 1. Mild stranding around the pancreatic head and uncinate. This could be secondary to ac jonah pancreatitis. Correlate with lipase. 2. Persistent marked distention of the gallbladder that can be seen with gallbladder hydrops. 3. Circumferentially thickened distal esophagus that may reflect mild esophagitis.
--- NOTE | 2022-03-31 13:34 | RAD REPORT ---
EXAM DESCRIPTION: US - Abdomen Exam Limited - 03/31/2022 1:01 pm CLINICAL HISTORY: Abdominal pain. COMPARISON: November 2021 FINDINGS: Gallbladder distention. The gallbladder wall is not thickened. A 1.7 centimeter stone within the gallbladder neck. The biliary tree is normal caliber. IMPRESSION: Unremarkable gallbladder ultrasound.
--- NOTE | 2022-03-31 16:33 | EDPHYS ---
Physician Documentation [facility] Name: Pillo Pickens Age: 61 yrs Sex: Male : 1960 Arrival Date: 03/31/2022 Time: 09:34 Bed 7 Private MD: Jose Kirk E ED Physician Mohsen Bell HPI: 03/31 10:10 This 61 yrs old Male presents to ER via Ambulatory with complaints of cp Abdominal Pain, Epigastric Pain. 10:10 The patient presents with abdominal pain in the epigastric area. cp 10:10 Onset: The symptoms/episode began/occurred this morning. The symptoms radiate to back. cp Associated signs and symptoms: Pertinent positives: nausea and vomiting, Pertinent negatives: blood in stools, chest pain, constipation, diarrhea, dysuria, fever, testicular pain, vomiting blood. The symptoms are described as constant. Modifying factors: the symptoms are aggravated by movement. Severity of pain: in the emergency department the pain is unchanged despite home interventions. Historical: - Allergies: 09:50 No Known Allergies; ap3 - Home Meds: 09:50 Metformin Oral [Active]; Epclusa oral [Active]; unknown bp medicaiton [Active]; ap3 - PMHx: 09:50 bacterial meningitits (2012); Chronic pain; Hypercholesterolemia; Hypertensive ap3 disorder; Hepatitis-C; - Immunization history:: Client reports receiving the 2nd dose of the Covid vaccine. - Social history:: Smoking status: Patient reports the use of cigarette tobacco products, smokes one pack cigarettes per day. ROS: 10:15 Constitutional: Positive for body aches, chills, fever, poor PO intake. cp 10:15 Eyes: Negative for injury, pain, redness, and discharge. cp 10:15 ENT: Negative for drainage from ear(s), ear pain, sore throat, difficulty swallowing, difficulty handling secretions. 10:15 Cardiovascular: Negative for chest pain, edema, palpitations. 10:15 Respiratory: Negative for cough, shortness of breath, wheezing. 10:15 Abdomen/GI: Positive for abdominal pain, nausea and vomiting, of the epigastric area, Negative for diarrhea, constipation, hematemesis, black/tarry stool, rectal bleeding. 10:15 Back: Positive for radiated pain. 10:15 : Negative for urinary symptoms, testicular pain 10:15 Neuro: Negative for altered mental status, dizziness, headache, syncope, weakness. 10:15 All other systems are negative. Exam: 10:11 ECG was reviewed by the Attending Physician. cp 10:20 Constitutional: The patient appears in no acute distress, alert, awake, cp non-diaphoretic, non-toxic, well developed, well nourished, in obvious pain, uncomfortable. 10:20 Head/Face: Normocephalic, atraumatic. cp 10:20 Eyes: Periorbital structures: appear normal, Conjunctiva: normal, no exudate, no injection, Sclera: no appreciated abnormality, Lids and lashes: appear normal, bilaterally. 10:20 ENT: External ear(s): are unremarkable, Nose: is normal, Mouth: Lips: moist, Oral mucosa: pink and intact, moist, Posterior pharynx: Airway: no evidence of obstruction, patent. 10:20 Neck: ROM/movement: is normal, is supple, without pain, no range of motions limitations, no meningismus. 10:20 Chest/axilla: Inspection: normal, Palpation: is normal, no crepitus, no tenderness. 10:20 Cardiovascular: Rate: normal, Rhythm: regular, Edema: is not appreciated, JVD: is not appreciated. 10:20 Respiratory: the patient does not display signs of respiratory distress, Respirations: normal, no use of accessory muscles, no retractions, labored breathing, is not present, Breath sounds: are clear throughout, no decreased breath sounds, no stridor, no wheezing. 10:20 Abdomen/GI: Inspection: abdomen appears normal, Bowel sounds: active, all quadrants, Palpation: soft, in all quadrants, severe abdominal tenderness, in the epigastric area, rebound tenderness, is not appreciated, voluntary guarding, is elicited in the epigastric area. 10:20 Back: pain, that is moderate, of the mid back area, ROM is painful, with all movement. 10:20 Skin: cellulitis, is not appreciated, no rash present. 10:20 Neuro: Orientation: to person, place \T\ time. Mentation: is normal, Motor: moves all fours, strength is normal, Sensation: is normal. Vital Signs: 09:46 BP 176 / 99; Pulse 75; Resp 19; Pulse Ox 98% ; Weight 71.21 kg; Height 5 ft. 7 in. ap3 (170.18 cm); Pain 10/10; 10:46 BP 180 / 80; Pulse 70; Resp 16; Pulse Ox 98% on R/A; em6 10:47 BP 180 / 80; Pulse 74; Resp 20; Pulse Ox 98% on R/A; em6 11:46 BP 158 / 88; Pulse 70; Resp 20; Pulse Ox 98% on R/A; em6 12:30 BP 160 / 84; Pulse 68; Resp 15; Pulse Ox 97% on R/A; Pain 5/10; em6 13:00 BP 149 / 83; Pulse 67; Resp 16; Pulse Ox 96% on R/A; em6 14:00 BP 180 / 81; Pulse 64; Resp 14; Pulse Ox 100% on R/A; em6 14:30 BP 154 / 78; Pulse 70; Resp 16; Pulse Ox 96% on R/A; Pain 6/10; em6 15:00 BP 157 / 79; Pulse 71; Resp 14; Pulse Ox 97% on R/A; em6 16:00 BP 163 / 88; Pulse 71; Resp 14; Pulse Ox 97% on R/A; em6 16:36 BP 137 / 85; Pulse 69; Resp 15; Pulse Ox 96% on R/A; Pain 5/10; em6 17:00 BP 150 / 87; Pulse 74; Resp 15; Pulse Ox 97% on R/A; em6 18:22 BP 146 / 72; Pulse 75; Resp 16; Pulse Ox 96% on R/A; em6 19:00 BP 147 / 77; Pulse 82; Resp 16; Temp 97.5(O); Pulse Ox 95% on R/A; lp1 20:00 BP 170 / 93; Pulse 82; Resp 18; Pulse Ox 95% on R/A; jb4 09:46 Body Mass Index 24.59 (71.21 kg, 170.18 cm) ap3 MDM: 09:54 Patient medically screened. cp 11:00 Differential diagnosis: bowel obstruction, non-specific abd pain, pancreatitis, Peptic cp Ulcer Disease, Perf. Duodenal Ulcer, Perf. Gastric Ulcer. 16:30 Data reviewed: vital signs, nurses notes. cp 16:30 Counseling: I had a detailed discussion with the patient and/or guardian regarding: the cp historical points, exam findings, and any diagnostic results supporting the discharge/admit diagnosis, lab results, radiology results, the need to transfer to another facility, [facility] does not immediately have the required specialist. Response to treatment: the patient's symptoms have mildly improved after treatment. 03/31 10:09 Order name: CBC with Diff; Complete Time: 10:59 03/31 13:43 Interpretation: Normal except: WBC 11.50; MPV 7.4; MCV 90.4. 03/31 10:09 Order name: CMP; Complete Time: 12:13 03/31 12:14 Interpretation: Normal except: GLUC 162; BUN 24; GFR 68; CA 10.2; TP 8.7; GLOB 4.5; A/G cp 0.9. 03/31 10:09 Order name: Lipase; Complete Time: 12:13 03/31 12:14 Interpretation: Abnormal: LIP 455. 03/31 10:09 Order name: Urine Microscopic Only; Complete Time: 12:13 03/31 10:09 Order name: Troponin High Sensitivity; Complete Time: 12:13 03/31 11:07 Order name: Urine Dipstick-Ancillary; Complete Time: 12:13 [facility] 03/31 10:09 Order name: CT Abd/Pelvis - IV Contrast Only; Complete Time: 12:13 03/31 12:19 Interpretation: Report reviewed. 03/31 10:09 Order name: XRAY Chest (1 view); Complete Time: 10:59 03/31 11:09 Order name: Urine Dipstick-Ancillary [facility] 03/31 12:22 Order name: US Abdomen Limited; Complete Time: 13:40 03/31 13:49 Order name: Cholangiogram [facility] 03/31 16:25 Order name: SARS RAPID 03/31 10:09 Order name: IV Saline Lock; Complete Time: 10:39 03/31 10:09 Order name: Labs collected and sent; Complete Time: 11:14 03/31 10:09 Order name: Urine Dipstick-Ancillary (obtain specimen); Complete Time: 11:14 03/31 12:22 Order name: NPO; Complete Time: 12:33 cp EC:11 Rate is 72 beats/min. Rhythm is regular. WI interval is normal. QRS interval is normal. cp QT interval is normal. T waves are Inverted in lead aVR. Interpreted by me. Reviewed by me. Administered Medications: 10:19 Drug: morphine 4 mg Route: IVP; Infused Over: 4 mins; Site: right antecubital; em6 10:47 Follow up: BP 180 / 80; Pulse 74 bpm; Resp 20 bpm; Pulse Ox 98% RA; Response: No em6 adverse reaction; RASS: Alert and Calm (0) 10:20 Drug: NS 0.9% 1000 ml Route: IV; Rate: 1 bolus; Site: right antecubital; em6 13:20 Follow up: Response: No adverse reaction; IV Status: Completed infusion; IV Intake: em6 1000ml 10:20 Drug: Zofran (Ondansetron) 4 mg Route: IVP; Site: right antecubital; em6 10:47 Follow up: Response: No adverse reaction em6 11:49 Drug: Dilaudid (HYDROmorphone) 1 mg Route: IVP; Site: right antecubital; em6 12:30 Follow up: BP 160 / 84; Pulse 68 bpm; Resp 15 bpm; Pulse Ox 97% RA; Pain 5/10 Adult; em6 Response: No adverse reaction; RASS: Alert and Calm (0) 12:35 Drug: NS 0.9% 1000 ml Route: IV; Rate: 100 ml/hr; Site: right antecubital; em6 14:03 Drug: Dilaudid (HYDROmorphone) 1 mg Route: IVP; Site: right antecubital; em6 14:30 Follow up: BP 154 / 78; Pulse 70 bpm; Resp 16 bpm; Pulse Ox 96% RA; Pain 6/10 Adult; em6 Response: No adverse reaction; RASS: Alert and Calm (0) 16:09 Drug: Dilaudid (HYDROmorphone) 1 mg Route: IVP; Site: right antecubital; em6 16:36 Follow up: BP 137 / 85; Pulse 69 bpm; Resp 15 bpm; Pulse Ox 96% RA; Pain 5/10 Adult; em6 Response: No adverse reaction; RASS: Alert and Calm (0) 17:21 Drug: Rocephin (cefTRIAXone) 1 grams Route: IV; Rate: calculated rate; Site: right em6 antecubital; 18:18 Follow up: Response: No adverse reaction em6 18:05 Drug: Dilaudid (HYDROmorphone) 1 mg Route: IVP; Site: right antecubital; em6 18:23 Follow up: Response: No adverse reaction; RASS: Alert and Calm (0) em6 19:45 Drug: Dilaudid (HYDROmorphone) 2 mg Route: IVP; Site: right antecubital; lp1 20:45 Follow up: Response: Marked relief of symptoms; Pain is decreased lp1 Disposition Summary: 03/31/22 16:32 Transfer Ordered Transfer Location: [facility] cp Reason: Higher level of care cp Condition: Stable cp Problem: new cp Symptoms: have improved cp Accepting Physician: Doctor(03/31/22 20:43) [email or web address] Diagnosis - Biliary acute pancreatitis cp Forms: - Medication Reconciliation Form cp - SBAR form cp Signatures: Dispatcher [employer] EDMS Juanita Miller RN RN lp1 Mohsen Whittaker PA PA cp Tonio Gabriel RN RN jb4 Fadumo Castaneda RN RN ap3 Shellie Mathur RN RN em6 Corrections: (The following items were deleted from the chart) 12:14 12:14 Normal except: GLUC 162; BUN 24; GFR 68. cp cp 13:43 10:59 Normal except: WBC 11.50; MPV 7.4. cp cp 16:44 16:43 PSHx: L5 S1 fusion; em6 em6 20:43 16:32 Doctor cp jb4
--- NOTE | 2022-03-31 16:33 | ER ---
Nurse's Notes [facility] Name: Pillo Pickens Age: 61 yrs Sex: Male : 1960 Arrival Date: 03/31/2022 Time: 09:34 Bed 7 Private MD: Jose Kirk E Diagnosis: Biliary acute pancreatitis Presentation: 03/31 09:46 Chief complaint: Patient states: he is having upper abdominal pain and epigastric pain ap3 since this morning. Patient also states that he is having low back pain-both of which began this morning. Patient reports that this has happened before and he was dx with H-Pylori. Coronavirus screen: At this time, the client does not indicate any symptoms associated with coronavirus-19. Ebola Screen: No symptoms or risks identified at this time. Initial Sepsis Screen: Does the patient meet any 2 criteria? No. Patient's initial sepsis screen is negative. Does the patient have a suspected source of infection? No. Patient's initial sepsis screen is negative. Risk Assessment: Do you want to hurt yourself or someone else? Patient reports no desire to harm self or others. Onset of symptoms was March 31, 2022. 09:46 Method Of Arrival: Ambulatory ap3 09:46 Acuity: SHADY 3 ap3 Triage Assessment: 09:52 General: Appears uncomfortable, Behavior is anxious, restless. Pain: Complains of pain ap3 in epigastric area, right upper quadrant and left upper quadrant. Neuro: Level of Consciousness is awake, alert, obeys commands, Oriented to person, place, time, situation. Cardiovascular: Patient's skin is warm and dry. Respiratory: Airway is patent Respiratory effort is even, unlabored, Respiratory pattern is regular, symmetrical. GI: Reports nausea, Patient currently denies vomiting. Historical: - Allergies: 09:50 No Known Allergies; ap3 - Home Meds: 09:50 Metformin Oral [Active]; Epclusa oral [Active]; unknown bp medicaiton [Active]; ap3 - PMHx: 09:50 bacterial meningitits (2012); Chronic pain; Hypercholesterolemia; Hypertensive ap3 disorder; Hepatitis-C; - Immunization history:: Client reports receiving the 2nd dose of the Covid vaccine. - Social history:: Smoking status: Patient reports the use of cigarette tobacco products, smokes one pack cigarettes per day. Screenin:53 Abuse screen: Denies threats or abuse. Nutritional screening: No deficits noted. ap3 Tuberculosis screening: No symptoms or risk factors identified. 10:04 Fall Risk None identified. No fall in past 12 months (0 pts). No secondary diagnosis (0 em6 pts). IV access (20 points). Ambulatory Aid- None/Bed Rest/Nurse Assist (0 pts). Gait- Normal/Bed Rest/Wheelchair (0 pts) Mental Status- Oriented to own ability (0 pts). Total Panchal Fall Scale indicates No Risk (0-24 pts). Assessment: 10:01 General: Appears in no apparent distress. uncomfortable, Behavior is cooperative, em6 restless. Pain: Complains of pain in epigastric area Pain radiates to left low back and right low back Pain currently is 10 out of 10 on a pain scale. Quality of pain is described as pressure, Pain began 1 day ago. Is continuous. Neuro: Macdonald Agitation-Sedation Scale (RASS): 0 - Alert and Calm Level of Consciousness is awake, alert, obeys commands, Oriented to person, place, time, situation. Cardiovascular: Denies chest pain, Heart tones present Patient's skin is warm and dry. Respiratory: Airway is patent Respiratory effort is even, unlabored, Respiratory pattern is regular, symmetrical, Breath sounds are clear bilaterally. GI: Abdomen is flat, non-distended, Stools are reported to be loose, Bowel sounds present X 4 quads. Abd is soft and non tender X 4 quads. : No signs and/or symptoms were reported regarding the genitourinary system. EENT: No signs and/or symptoms were reported regarding the EENT system. Derm: No signs and/or symptoms reported regarding the dermatologic system. Musculoskeletal: No signs and/or symptoms reported regarding the musculoskeletal system. Circulation, motion, and sensation intact. 10:07 Cardiovascular: Rhythm is sinus rhythm. em6 11:20 Reassessment: Patient and/or family updated on plan of care and expected duration. Pain em6 level reassessed. Patient states symptoms have not improved. Notified provider of pain. . 11:20 Pain: Complains of pain in epigastric area Pain currently is 10 out of 10 on a pain em6 scale. 12:20 Reassessment: Patient appears in no apparent distress at this time. Patient and/or em6 family updated on plan of care and expected duration. Pain level reassessed. Patient states symptoms have improved. 13:20 Reassessment: Patient appears in no apparent distress at this time. No changes from em6 previously documented assessment. Patient and/or family updated on plan of care and expected duration. Pain level reassessed. 13:58 Reassessment: Patient and/or family updated on plan of care and expected duration. Pain em6 level reassessed. General: notified provider of pain.. Pain: Complains of pain in epigastric area Pain currently is 10 out of 10 on a pain scale. 15:00 Reassessment: Patient appears in no apparent distress at this time. Patient and/or em6 family updated on plan of care and expected duration. Pain level reassessed. 16:00 Reassessment: Patient and/or family updated on plan of care and expected duration. Pain em6 level reassessed. 16:00 Pain: Pain currently is 10 out of 10 on a pain scale. em6 17:00 Reassessment: Patient and/or family updated on plan of care and expected duration. Pain em6 level reassessed. Reassessment:. Pain: Pain currently is 6 out of 10 on a pain scale. Pain: Pain currently is 6 out of 10 on a pain scale. 17:56 Reassessment: gave nurse to nurse report to Eric . em6 18:00 Reassessment: Patient and/or family updated on plan of care and expected duration. Pain em6 level reassessed. 18:00 Pain: Pain currently is 10 out of 10 on a pain scale. em6 19:00 Reassessment: Patient appears in no apparent distress at this time. Patient and/or jb4 family updated on plan of care and expected duration. Pain level reassessed. Patient is alert, oriented x 3, equal unlabored respirations, skin warm/dry/pink. 20:00 Reassessment: Patient appears in no apparent distress at this time. Patient and/or jb4 family updated on plan of care and expected duration. Pain level reassessed. Patient is alert, oriented x 3, equal unlabored respirations, skin warm/dry/pink. 20:45 Reassessment: [facility] at bedside for patient transfer to [facility] Patient states lp1 feeling better. Patient states symptoms have improved. Pain: Pain currently is 1 out of 10 on a pain scale. Vital Signs: 09:46 BP 176 / 99; Pulse 75; Resp 19; Pulse Ox 98% ; Weight 71.21 kg; Height 5 ft. 7 in. ap3 (170.18 cm); Pain 10/10; 10:46 BP 180 / 80; Pulse 70; Resp 16; Pulse Ox 98% on R/A; em6 10:47 BP 180 / 80; Pulse 74; Resp 20; Pulse Ox 98% on R/A; em6 11:46 BP 158 / 88; Pulse 70; Resp 20; Pulse Ox 98% on R/A; em6 12:30 BP 160 / 84; Pulse 68; Resp 15; Pulse Ox 97% on R/A; Pain 5/10; em6 13:00 BP 149 / 83; Pulse 67; Resp 16; Pulse Ox 96% on R/A; em6 14:00 BP 180 / 81; Pulse 64; Resp 14; Pulse Ox 100% on R/A; em6 14:30 BP 154 / 78; Pulse 70; Resp 16; Pulse Ox 96% on R/A; Pain 6/10; em6 15:00 BP 157 / 79; Pulse 71; Resp 14; Pulse Ox 97% on R/A; em6 16:00 BP 163 / 88; Pulse 71; Resp 14; Pulse Ox 97% on R/A; em6 16:36 BP 137 / 85; Pulse 69; Resp 15; Pulse Ox 96% on R/A; Pain 5/10; em6 17:00 BP 150 / 87; Pulse 74; Resp 15; Pulse Ox 97% on R/A; em6 18:22 BP 146 / 72; Pulse 75; Resp 16; Pulse Ox 96% on R/A; em6 19:00 BP 147 / 77; Pulse 82; Resp 16; Temp 97.5(O); Pulse Ox 95% on R/A; lp1 20:00 BP 170 / 93; Pulse 82; Resp 18; Pulse Ox 95% on R/A; jb4 09:46 Body Mass Index 24.59 (71.21 kg, 170.18 cm) ap3 ED Course: 09:34 Patient arrived in ED. am2 09:34 Jose Kirk MD is Private Physician. am2 09:49 [facility] cp 09:49 Mohsen Bell MD is Attending Physician. cp 09:49 Triage completed. ap3 09:52 Arm band placed on left wrist. ap3 10:04 Patient has correct armband on for positive identification. Bed in low position. Call em6 light in reach. Side rails up X 1. Pulse ox on. NIBP on. 10:08 Inserted saline lock: 20 gauge in right antecubital area, using aseptic technique. ap3 Blood collected. 10:08 EKG done, by ED staff, reviewed by Mohsen GUERRA. ap3 10:51 XRAY Chest (1 view) In Process Unspecified. EDMS 12:03 CT Abd/Pelvis - IV Contrast Only In Process Unspecified. EDMS 13:03 US Abdomen Limited In Process Unspecified. EDMS 16:25 initiated a transfer with Dio from the [facility] Transfer [place]/. eb 16:36 SARS RAPID Sent. em6 16:[address] Bowling the hospitalist brand protection manager for [facility] with Mohsen Guerra for eb patient transfer consultation. 16:57 administrative approval given by Dio Bridges Rn/ patient has been accepted to [facility] 15 tower bed 1514/ Dr. Chiquita Bowling has accepted the patient in transfer/ report to be called to [phone]. 19:37 Juanita Miller, JHONATAN is Primary Nurse. lp1 20:45 No provider procedures requiring assistance completed. Patient transferred, IV remains lp1 in place. Administered Medications: 10:19 Drug: morphine 4 mg Route: IVP; Infused Over: 4 mins; Site: right antecubital; em6 10:47 Follow up: BP 180 / 80; Pulse 74 bpm; Resp 20 bpm; Pulse Ox 98% RA; Response: No em6 adverse reaction; RASS: Alert and Calm (0) 10:20 Drug: NS 0.9% 1000 ml Route: IV; Rate: 1 bolus; Site: right antecubital; em6 13:20 Follow up: Response: No adverse reaction; IV Status: Completed infusion; IV Intake: em6 1000ml 10:20 Drug: Zofran (Ondansetron) 4 mg Route: IVP; Site: right antecubital; em6 10:47 Follow up: Response: No adverse reaction em6 11:49 Drug: Dilaudid (HYDROmorphone) 1 mg Route: IVP; Site: right antecubital; em6 12:30 Follow up: BP 160 / 84; Pulse 68 bpm; Resp 15 bpm; Pulse Ox 97% RA; Pain 5/10 Adult; em6 Response: No adverse reaction; RASS: Alert and Calm (0) 12:35 Drug: NS 0.9% 1000 ml Route: IV; Rate: 100 ml/hr; Site: right antecubital; em6 14:03 Drug: Dilaudid (HYDROmorphone) 1 mg Route: IVP; Site: right antecubital; em6 14:30 Follow up: BP 154 / 78; Pulse 70 bpm; Resp 16 bpm; Pulse Ox 96% RA; Pain 6/10 Adult; em6 Response: No adverse reaction; RASS: Alert and Calm (0) 16:09 Drug: Dilaudid (HYDROmorphone) 1 mg Route: IVP; Site: right antecubital; em6 16:36 Follow up: BP 137 / 85; Pulse 69 bpm; Resp 15 bpm; Pulse Ox 96% RA; Pain 5/10 Adult; em6 Response: No adverse reaction; RASS: Alert and Calm (0) 17:21 Drug: Rocephin (cefTRIAXone) 1 grams Route: IV; Rate: calculated rate; Site: right em6 antecubital; 18:18 Follow up: Response: No adverse reaction em6 18:05 Drug: Dilaudid (HYDROmorphone) 1 mg Route: IVP; Site: right antecubital; em6 18:23 Follow up: Response: No adverse reaction; RASS: Alert and Calm (0) em6 19:45 Drug: Dilaudid (HYDROmorphone) 2 mg Route: IVP; Site: right antecubital; lp1 20:45 Follow up: Response: Marked relief of symptoms; Pain is decreased lp1 Medication: 10:04 VIS not applicable for this client. em6 Intake: 13:20 IV: 1000ml; Total: 1000ml. em6 Outcome: 16:32 ER care complete, transfer ordered by MD. cuevas 20:42 Transferred by ground EMS to [facility]. jb4 20:42 Condition: stable 20:42 Discharge instructions given to patient, family, Instructed on the need for transfer, Demonstrated understanding of instructions. 20:43 Patient left the ED. jb4 Signatures: Dispatcher [employer] EDMS Juanita Miller RN RN lp1 Mohsen Whittaker PA PA cp Bryson, James RN RN jb4 Fadumo Patrick am2 Fadumo Castaneda, RN RN ap3 Leigh Agrawal Erika RN RN em6 Corrections: (The following items were deleted from the chart) 10:09 10:01 Pain: Complains of pain in epigastric area Pain radiates to left low back and em6 right low back Pain currently is 10 out of 10 on a pain scale. Quality of pain is described as burning, Pain began 1 day ago. Is continuous, em6 10:09 10:01 GI: Abdomen is flat, non-distended, Stools are reported to be normal. Bowel em6 sounds present X 4 quads. Abd is soft and non tender X 4 quads. em6 13:58 12:20 Reassessment: Patient and/or family updated on plan of care and expected em6 duration. Pain level reassessed. Patient states symptoms have improved. em6 16:44 16:43 PSHx: L5 S1 fusion; em6 em6 17:32 15:00 Reassessment: Patient appears in no apparent distress at this time. No changes em6 from previously documented assessment. Patient and/or family updated on plan of care and expected duration. Pain level reassessed. em6 17:32 16:00 Reassessment: No changes from previously documented assessment. Patient and/or em6 family updated on plan of care and expected duration. Pain level reassessed. em6 18:21 17:56 Reassessment: gave nurse to nurse report to Eric ISRAEL. em6 em6 21:46 19:00 BP 147 / 77; Pulse 82bpm; Resp 16bpm; Pulse Ox 95% RA; jb4 lp1
[2022-03-31 16:57] LABS: SARS-CoV-2 Antigen Rapid Res Negative (Negative)
[2022-03-31] MEDS ORDERED: CEFTRIAXONE 1000 MG/VIAL ONE (17:20)
[2022-03-31] MEDS ORDERED: HYDROMORPHONE HCL 2 MG/ML inj ONE (19:50)
[2022-03-31] MEDS ORDERED: NA CHLORIDE 0.9% 250 ML ONE (19:50)
[2022-03-31 23:28] VITALS: O2SAT 95
[2022-03-31 23:31] VITALS: BP 170/93
--- NOTE | 2022-04-03 08:16 | EKG ---
Test Date: 2022-03-31 Test Time: 10:00:13 Crm Architect: ALP MEASUREMENT RESULTS: Intervals: Rate: 72 CA: 150 QRSD: 92 QT: 396 QTc: 433 Advance: P: 69 CA: 150 QRS: 62 T: 30 INTERPRETIVE STATEMENTS: Normal sinus rhythm Normal ECG Compared to ECG 09/30/2020 03:08:52 Sinus bradycardia no longer present Left ventricular hypertrophy no longer present ST (T wave) deviation no longer present Electronically Signed On 04-03-22 08:07:15 CDT by Nicho Woods
== END 2022-03-31 20:43 | disposition short-term general hospital (02) ==
LOC: ER 09:33
DX: K85.10 Biliary acute pancreatitis without necrosis or infection (principal); I10 Essential (primary) hypertension; F17.210 Nicotine dependence, cigarettes, uncomplicated; Z20.822 Contact with and (suspected) exposure to COVID-19
CPT/HCPCS: 96361; 85025; 36415; 84484; 83690; 80053; 74177; 71045; 76705; 96375; 96374; 99285; 87811; Q9967; J1170 ×5; J7050; J7030 ×2; J2405; 81003; 81015; 93005

== ENCOUNTER 2023-04-23 06:33 | Day surgery (SDC) | payer MEDICARE, OTHER ==
[2023-04-20 11:46] LABS: Absolute Lymphocytes (CBC) 2.7 K/uL (0.7-4.9); Lymphocytes % 28.5 % (15.3-44.8); MPV 7.2 fL (7.6-11.3); Platelets 351 thou/uL (152-406); RBC Red Blood Cell Count 4.79 M/uL (4.33-5.43)
[2023-04-20 12:01] LABS: Potassium 3.9 mEq/L (3.5-5.1)
[2023-04-23] MEDS ORDERED: NA CHLORIDE 0.9% 1,000 ML ONE (06:58)
[2023-04-23] MEDS ORDERED: CEFAZOLIN SODIUM 2 GM/VIAL ONE (06:58)
[2023-04-23] MEDS ORDERED: Ringers Lactate 0 ML IV ONE (07:24)
[2023-04-23] MEDS ORDERED: FENTANYL CITR 100 MCG/2 ML ONE (08:44)
[2023-04-23] MEDS ORDERED: LIDOCAINE 2% MPF 5 ML VIAL ONE (08:45)
[2023-04-23] MEDS ORDERED: propofoL 200 MG/20 ML VIAL IV ONE ×3 (08:45→10:03)
[2023-04-23] MEDS ORDERED: MIDAZOLAM HCL 2 MG/2 ML INJ ONE (08:45)
[2023-04-23] MEDS ORDERED: Mastisol Adhesive Liq ONE (09:57)
[2023-04-23 10:19] VITALS: O2SAT 100
[2023-04-23] MEDS: HYDROMORPHONE HCL 1 MG/ML INJ ONE ×2 (10:22→10:28)
[2023-04-23] MEDS ORDERED: HYDROCODONE/APAP 7.5/325 MG TAB ONE (11:13)
[2023-04-23 11:28] VITALS: BP 147/69; TEMP 97
--- NOTE | 2023-04-23 14:13 | RAD REPORT ---
EXAM DESCRIPTION: RAD - Fluoroscopy <1 Hour - 04/23/2023 2:02 pm CLINICAL HISTORY: SPINAL STIMULATOR REMOVAL COMPARISON: None available. FINDINGS: Three Images were sent to PACS, documenting hardware positions during spinal stimulator re moval procedure. No radiologist was available for the procedure, nor will any image interpretation he provided. Please refer to the procedural report for additional details. Fluoroscopy time: Less than 0.1 Minutes. IMPRESSION: Documentation of fluoroscopy utilization as above.
== END 2023-04-23 12:10 | disposition home or self-care (01) ==
LOC: OR 06:33
PROVIDERS: ATTEND Orthopaedic Surgery
PROC: 0JPT0MZ Removal of Stimulator Generator from Trunk Subcutaneous Tissue and Fascia, Open Approach (ICD-10-PCS; 2023-04-23)
PROC: 00PV0MZ Removal of Neurostimulator Lead from Spinal Cord, Open Approach (ICD-10-PCS; principal; 2023-04-23 08:00)
DX: G89.4 Chronic pain syndrome (principal); M54.16 Radiculopathy, lumbar region; I10 Essential (primary) hypertension; E78.00 Pure hypercholesterolemia, unspecified; F17.210 Nicotine dependence, cigarettes, uncomplicated; E11.9 Type 2 diabetes mellitus without complications
CPT/HCPCS: 85025; 80048; 36415; 82947 ×2; 88300; 63661; 63688; J2704 ×3; J2001; J2250; J3010; J1170; J7030; 76000; J7120

== ENCOUNTER 2023-06-05 02:45 | Inpatient (IN) | payer MEDICARE ==
--- OUTSIDE RECORDS SUMMARY | 2023-06-05 02:50 | XMS REPORT | Continuity of Care Document ---
:1960 Author Organization [facility] t Address [address] [place] [address] [place] [id number] Care Team Providers Name Role Phone Jose Kirk Primary Care Physician Mitchell --Dorothea Attending Clinician RUDY MG Attending Clinician Unavailable MINE CASE Attending Clinician Unavailable KIMMY PIERRE Attending Clinician Unavailable Rudy Mg MD Attending Clinician SHASHI LORENZO Admitting Clinician Unavailable Payers Payer Name Policy Type Policy Number Effective Date Expiration Date S luisanaFormerly [facility] [employer] [id number] 2022 (MEDICARE 00:00:00 REPLACEMENT HMO) HU[employer]NA GOLD PLS HMO [id number] 2021 00:00:00 HUMANA MEDICARE ADV [id number] 2021 00:00:00 Problems Condition Condition Condition Status Onset Resolution Last Treating Co mments Source Name Details Category Date Date Treatment Clinician Date Essential Essential Disease Recurre [facility] hypert[facility]i hypertensi nce 8-20 Samra kes on on 00:00: Medical [address] [place] [address] Chronic Chronic Disease Recurre [facility] back pain back pain nce 8-20 [facility] 00:00: Medical 00 Center Hepatitis Hepatitis Disease Recurre [facility] infection infection 00:00: [facility] 00 Center Mixed Mixed Disease Active [facility] hyperlipid hyperlipid 8-20 Samra kes emia emia 00:00: Medical 00 Center Acute Acute Disease Active [facility] pancreatit pancreatit 8-19 Samra kes is is 00:00: Medical 00 Center Gallstone Gallstone Disease Active Overview: [facility] pancreatit pancreatit 8-19 Formattin [facility] is is 00:00: g of this Medical 00 note Center might be different from the original. Added automatic ally from request for surgery [id number] HEP HEP Diagnosis Active 2011-082012-07-16 Mem oria Active 08-18 11:06:00 l 06/18/2012 00:00: Abdias oliveira [address] FOLLOW UP FOLLOW UP Diagnosis Active 2012-04-16 Memoria Active 04-09 10:48:00 l 04/09/2012 00:00: Abdias oliveira [address] INJECTION INJECTION Diagnosis Active 2011-12-21 Alisaoria SHOT SHOT 12-19 10:27:00 l Active 00:00: Simone 12/20/2011 00 [facility] DDC-EGD DDC-EGD Diagnosis Active 2011-11-08 Memoria Active 10-31 12:30:00 l 11/01/2011 00:00: Abdias oliveira [address] DDC-COLONO DDC-COLON Diagnosis Active 2011-09-27 Alisaoria SCOPY. OSCOPY. 1- 20:33:00 l Active 00:00: Simone 08/31/2011 00 [facility] ABD PAIN. ABD Diagnosis Active 2011-11-06 Sudhir PAIN. 1- 15:48:00 l Active 00:00: Simone 08/23/2011 00 [facility] HEP C HEP C Diagnosis Active 2011-12-22 Mem oria Active 08-22 15:28:00 l 08/22/2011 00:00: Abdias oliveira [address] Meningitis Meningiti Problem Active 2012-07-18 Memoria s Active 04-01 09:27:08 l 04/01/2009 00:00: Abdias n Problem 00 07/18/2012 [facility] Education Problem Active 2012-07-18 Me moria Education 03-26 09:27:08 l Active 00:00: [place] 03/26/2009 00 Problem 07/18/2012 <sup>1</ho p>Knowledg e deficitr/t use of medication [facility] MRSA MRSA Problem Active 2012-07-18 Memor ia Active 03-18 09:27:08 l 03/18/2009 00:00: Abdias n Problem 00 07/18/2012 [facility] Headache Headache Problem Active 2012-07-18 Memoria Active 09:27:08 l Problem [place] 07/18/2012 [facility] Pian Pian Problem Active 2012-07-18 Memor ia Active 09:27:08 l Problem [place] 07/18/2012 [facility] ABDMNAL ABDMNAL Diagnosis Active 2011-11-08 Memoria PAIN PAIN 12:30:00 l GENERALIZE GENERALIZE He rmann D D Active [facility] ABDMNAL ABDMNAL Diagnosis Active 2011-11-06 Memoria PAIN LFT PAIN LFT 15:48:00 l UP QUAD UP QUAD [place] Active [facility] ABNORMAL ABNORMAL Diagnosis Active 2011-11-08 Memoria LOSS OF LOSS OF 12:30:00 l WEIGHT WEIGHT [place] Active [facility] No known No known Disease Unive rs active active ity of problems problems [facility] Nausea Nausea Problem Resolve 2012-07-18 2012-07-18 Memoria Resolved d 04-02 09:27:08 09:27:08 l 04/02/2009 00:00: Abdias n Problem 00 07/18/2012 [facility] Sleep Sleep Problem Resolve 2012-07-18 2012-07-18 Memoria Resolved d 03-28 09:27:08 09:27:08 l 03/28/2009 00:00: Abdias n Problem 00 07/18/2012 <sup>2</ho p>Altered Sleeping Pattern r/t hospital routine [facility] Allergies, Adverse Reactions, Alerts Allergy Allergy Status Severity Reaction(s) Onset Inactive Treating Comm ents Source Name Type Date Date Clinician NO KNOWN Allergy Active [facility] Family History Family Member Diagnosis Comments Start Date Stop Date Source Natural father Diabetes [facility] Natural mother Diabetes [facility] Social History Social Habit Start Date Stop Date Quantity Comments Source Sexual orientation 2018-11-13 Heterosexual Meth odist 10:55:19 (finding) Hospital History of tobacco 1975-08-[address] [facility] use 00:00:00 daily Medical Center History [facility]-Med [facility] Alcohol intake 2022-04-03 2022-04-03 Ex-drinker [facility] 00:[facility]:00 00:00:00 (finding) Medical Center History [facility] 2022-04-01 2022-04-[address] [facility] Transport Med 00:00:00 00:00:[address] [facility] 2022-04-01 2022-04-[address] [facility] Housing Unable to 00:00:00 00:00:00 Medical Center Pay History [facility] 2022-04-01 2022-04-[address] [facility] Housing Places 00:00:00 00:00:00 Medical Ce nter Lived History [facility] 2022-04-01 2022-04-[address] [facility] Housing Homeless 00:00:00 00:00:00 Medical Center Last Year Cigarettes smoked 2022-03-31 2022-03-[address] [facility] current (pack per 00:00:00 00:00:00 Medical Center day) - Reported Cigarette 2022-03-31 2022-03-[address] [facility] pack-years 00:00:00 00:00:00 Medical Center Tobacco use and 2022-03-31 2022-03-[address] [facility] exposure 00:00:00 00:00:00 tobacco user Medical Cent er Exposure to 2022-01-10 2022-01-20 Not sure University of SARS-CoV-2 (event) 00:00:00 13:48:00 [facility] History of Social 2019-03-30 2019-03-[address] function 00:00:00 00:00:00 Hospital Sex Ass[birth year] At [birth year] [facility] 00:00:00 00:00:00 Hospital Smoking Status Start Date Stop Date Source Unknown if ever smoked [facility] Smokes tobacco daily 2022-03-31 00:00:[address] [facility] Medications Ordered Filled Start Stop Current Ordering Indication Dosage Frequency Signature Comments Components Source Medication Medication Date Date Medication? Clinician (SIG) Name Name metFORMIN Yes 1000mg Take 1,[address] (GLUCOPHAGE 8-24 mg by [facility]ukes ) 1000 MG 18:32: mouth 2 Medic al tablet 02 (two) Center times daily with breakfast and dinner. atorvastati Yes 40mg QD Take [address] n (LIPITOR) 8-24 by mouth Luke s 40 MG 18:32: daily. Medical tablet 02 Center fenofibrate Yes 160mg QD Take [address] (TRIGLIDE,L 8-24 mg by [facility] OFIBRA) 160 18:32: mouth Medic al MG tablet 02 daily. [place] acetaminoph Yes 1000mg Take [address] en 8-23 tablets [facility] (TYLENOL) 00:00: (1,000 mg Med ical 500 MG 00 total) by [place] tablet mouth every 6 (six) hours. gabapentin Yes Take by [facility] (NEURONTIN) 8-18 mouth. [facility] 400 MG 00:00: Medical capsule 00 Center amlodipine- Yes 1{tbl} QD Take [address] valsartan 8-06 tablet by [facility] (EXFORGE) 00:00: mouth Medical 10-160 mg 00 daily. [place] per tablet Epclusa Yes 1{tbl} QD Take [address] 400-100 mg 8-05 tablet by ke s Tab 00:00: mouth Medical 00 daily. [place] gabapentin Yes [id number] 800mg Take 2 Univers (NEURONTIN) 6-10 capsules ity of 400 mg 00:00: by mouth 3 [place] capsule 00 (three) Medical times Branch daily. gabapentin Yes [id number] 800mg Take 2 Univers (NEURONTIN) 6-10 capsules ity of 400 mg 00:00: by mouth 3 [place] capsule 00 (three) Medical times Branch daily. gabapentin Yes TAKE 1-2 Met hodi (NEURONTIN) 3-[address] 300 mg 00:00: MOUTH 3 Hospita capsule 00 TIMES A l DAY Vital Signs Vital Name Observation Time Observation Value Comments Source HEIGHT 2022-03-31 22:19:00 170.2 cm WEIGHT 2022-03-31 22:19:00 71.215 kg HEIGHT 2022-03-31 22:19:00 170.2 cm WEIGHT 2022-03-31 22:19:00 71.215 kg Systolic blood 2022-01-20 19:01:00 158 mm[Hg[facility] pressure [facility] Diastolic blood 2022-01-20 19:01:00 95 mm[Hg] [facility] [place] [facility] Heart rate 2022-01-20 19:00:00 81 /min [facility] Body height 2022-01-20 19:00:00 170.2 cm [facility] Body weight 2022-01-20 19:00:00 69.854 kg [facility] BMI 2022-01-20 19:00:00 24.12 kg/m2 [facility] Oxygen saturation 2022-01-20 19:00:00 91 /min [facility] in Arterial blood Medical Br anch by Pulse oximetry Weight 2012-07-16 18:42:00 [facility] Respitory Rate 2012-07-16 18:42:00 Memori al [place] Heart Rate 2012-07-16 18:42:00 [facility] [place] Diastolic (mm Hg) 2012-07-16 18:42:00 Mem orial [place] Systolic (mm Hg) 2012-07-16 18:42:00 Nii rial [place] Weight 2012-04-16 18:35:00 [facility] [place] Height 2012-04-16 18:35:00 170.18 cm [facility] Diastolic (mm Hg) 2011-10-20 15:10:00 Mem orial [place] Systolic (mm Hg) 2011-10-20 15:10:00 Nii rial [place] Respitory Rate 2011-10-20 15:10:00 Memori al [place] Heart Rate 2011-10-20 15:10:00 [facility] [place] Weight 2011-10-20 15:10:00 [facility] [place] Height 2011-10-20 15:10:00 170.30 cm [facility] Procedures This patient has no known procedures. Plan of Care Planned Activity Planned Date Details Comments Source Future Scheduled 2023-05-30 Screening for malignant [facility] Test 05:46:56 neoplasm of colon Hospital (procedure) [code = 178382793] Future Scheduled 2023-05-30 Screening for malignant [facility] Test 05:46:56 neoplasm of colon Hospital (procedure) [code = 033457661] Future Scheduled 2023-05-30 Screening for malignant [facility] Test 05:46:56 neoplasm of colon Hospital (procedure) [code = 486225906] Future Scheduled 2023-05-30 COVID-19 VACCINE (#1) [facility] Test 05:46:56 [code = COVID-19 VACCINE Hos pital (#1)] Future Scheduled 2023-05-30 Screening for malignant [facility] Test 05:46:56 neoplasm of colon Hospital (procedure) [code = 567533801] Future Scheduled 2023-05-30 Screening for malignant [facility] Test 05:46:56 neoplasm of colon Hospital (procedure) [code = 049682120] Future Scheduled 2023-05-30 SHINGLES VACCINES (1 of [facility] Test 05:46:56 2) [code = SHINGLES Hospital VACCINES (1 of 2)] Future Scheduled 2023-05-30 RSV VACCINES > 60 YR (1 - [facility] Test 05:46:56 1-dose 60+ series) [code Hos pital = RSV VACCINES > 60 YR (1 - 1-dose 60+ series)] Future Scheduled 2023-05-30 INFLUENZA VACCINE (#1) M [facility]ist Test 05:46:56 [code = INFLUENZA VACCINE Ho spital (#1)] Future Scheduled 2023-04-13 Influenza Vaccine (#1) [facility] Test 00:00:00 [code = Influenza Vaccine Me dical Center (#1)] Future Scheduled 2023-04-[address] [facility] Test 00:00:00 Counseling and Screening Med ical Center (12+) [code = Tobacco Cessation Counseling and Screening (12+)] Future Scheduled 2022-09-14 MEDICARE ANNUAL WELLNESS [facility] Test 00:00:00 (YEAR 2 or FIRST YEAR if Med ical Center no IPPE) [code = MEDICARE ANNUAL WELLNESS (YEAR 2 or FIRST YEAR if no IPPE)] Future Scheduled 2022-08-[address] [facility] Test 00:00:00 (12+) [code = DEPRESSION Med ical Center SCREENING (12+)] Future Scheduled 2021-06-15 COVID-19 VACCINE (4 - [facility] Test 00:00:00 Booster for Moderna Medical Center series) [code = COVID-19 VACCINE (4 - Booster for Moderna series)] Future Scheduled 2012 Screening for malignant [facility] Test 00:00:00 neoplasm of lung Medical Hero ter (procedure) [code = 070040726] Future Scheduled 2012 SHINGLES VACCINES ([address] [facility] Test 00:00:00 2) [code = SHINGLES Medical Center VACCINES (1 of 2)] Future Scheduled 1997 Lipid panel (procedure) [facility] Test 00:00:00 [code = 88288911] Medical Ce nter Future Scheduled 1981 DTAP/TDAP/TD VACCINES ([address] [facility] Test 00:00:00 - Tdap) [code = Medical Cent er DTAP/TDAP/TD VACCINES (1 - Tdap)] Future Scheduled [address] [facility] Test 00:00:00 virus screening Medical Cent er (procedure) [code = 721533925] Future Scheduled 1968 Pneumococcal Vaccine: [facility] Test 00:00:00 0-64 Years (1 - PCV) Medical Center [code = Pneumococcal Vaccine: 0-64 Years (1 - PCV)] Future Scheduled 1962 CT Colonography (combo) [facility] Test 00:00:00 [code = CT Colonography [facility] (combo)] Future Scheduled 1962 Screening for malignant [facility] Test 00:00:00 neoplasm of colon Medical Ce nter (procedure) [code = 003692277] Future Scheduled 1962 Screening for malignant [facility] Test 00:00:00 neoplasm of colon Medical Ce nter (procedure) [code = 092713331] Future Scheduled 1962 Screening for malignant [facility] Test 00:00:00 neoplasm of colon Medical Ce nter (procedure) [code = 000655544] Future Scheduled 1962 Screening for malignant [facility] Test 00:00:00 neoplasm of colon Medical Ce nter (procedure) [code = 878476624] Future Scheduled 1960 Sigmoidoscopy [code = [facility] Test 00:00:00 Sigmoidoscopy] Medical Cente r Encounters Start End Encounter Admission Attending Care Care Encounter Source Date/Time Date/Time Type Type Clinicians Facility Department ID 2023-06-05 Outpatient nullFlavo [facility] [id number] Memoria 02:48:54 r Medical 16 [facility] 2023-06-05 Outpatient nullFlavo [facility] [id number] Memoria 02:48:54 r Medical 12 [facility] 2023-06-05 Outpatient nullFlavo [facility] [id number] Memoria 02:48:54 r Medical 20 [facility] 2023-02-09 Outpatient [facility] [id number] ID 08:36:30 [id number] [facility] 2022-06-20 Outpatient nullFlavo [facility] [id number] Memoria 09:40:06 r Medical 20 [facility] 2022-06-20 Outpatient nullFlavo [facility] [id number] Memoria 09:40:06 r Medical 12 [facility] 2022-06-20 Outpatient nullFlavo [facility] [id number] Memoria 09:40:06 r Medical 16 [facility] 2022-12-15 2022-12-15 Outpatient DMG DM [id number] [facility] 00:00:00 00:00:00 [id number] Medica l [facility] 2022-12-04 2022-12-04 SHAHLA Piedra [id number] CLAHumaira [id number] [facility] 18:00:00 19:00:00 Medrano [id number] [facility] [id number] 2022-07-25 2022-07-25 Outpatient R SAURAV [facility] [id number] Univers 10:30:00 10:30:00 RUDY santacruz [facility] 2022-07-19 2022-07-19 Outpatient DMG DM [id number] [facility] 00:00:00 00:00:00 [id number] Medica l Group 2022-03-31 2022-04-04 Inpatient ER CIVUNIGUNTA [facility] Surgery [id number] [facility] 22:12:00 18:32:00 , KIMMY 2022-01-20 2022-01-20 [facility] [id number] Univers 13:30:00 14:30:46 Visit Rudy JENKINS [id number] Ramy QURESHI [id number] Cindi [facility] [id number] [address] [facility] 2022-01-20 2022-01-20 [facility] [id number] Univers 13:30:00 14:30:46 RUDY santacruz of [facility] 2012-07-16 2012-07-16 Outpatient nullFlavo MH [place] [id number] Memoria 11:06:00 11:06:00 r Medical 21 l [facility] 2012-07-16 2012-07-16 Outpatient nullFlavo MH [place] [id number] Memoria 11:06:00 11:06:00 r Medical 21 l [facility] 2011-12-21 2011-12-21 Outpatient nullFlavo [facility] [place] [id number] Memoria 10:27:00 10:27:00 r Medical 19 l [facility] 2011-12-21 2011-12-21 Outpatient nullFlavo [place] [id number] Memoria 10:27:00 10:27:00 r Medical 19 l [facility] 2011-11-08 2011-11-08 Outpatient nullFlavo [facility] [place] [id number] Memoria 11:59:00 11:59:00 r Medical 18 l [facility] 2011-11-08 2011-11-08 Outpatient nullFlavo [place] [id number] Memoria 11:59:00 11:59:00 r Medical 18 l [facility] 2011-10-20 2011-10-20 Outpatient nullFlavo MH [place] [id number] Memoria 09:03:00 09:03:00 r Medical 17 l [facility] 2011-10-20 2011-10-20 Outpatient nullFlavo [facility] [place] [id number] Memoria 09:03:00 09:03:00 r Medical 17 l [facility] 2011-09-06 2011-09-06 Outpatient nullFlavo MH [place] [id number] Memoria 10:49:00 23:59:00 r Medical 13 l [facility] 2011-09-06 2011-09-06 Outpatient nullFlavo [place] [id number] Memoria 10:49:00 23:59:00 r Medical 13 l [facility] 2011-09-05 2011-09-05 Outpatient nullFlavo [place] [id number] Memoria 08:58:00 23:59:00 r Medical 14 l [facility] 2011-09-05 2011-09-05 Outpatient nullFlavo [place] [id number] Memoria 08:58:00 23:59:00 r Medical 14 l [facility] Results Test Description Test Time Test Comments Results Result Comments Source AFB CULTURE + SMEAR (NON-SPUTUM) 2022-06-02 12:24:00 Test Item Value Reference Range Interpretation Comme nts CULTURE (BEAKER) (test code = 1095) No acid-fast bacilli isolated i n 42 days AFB SMEAR (BEAKER) (test code = 994) No acid fast bacilli seen AFB CULTURE + SMEAR (NON-SPUTUM)2022-06-02 12:24:00 Test Item Value Reference Range Interpretation Comments CULTURE (BEAKER) (test No acid-fast bacilli code = 1095) isolated in 42 days AFB SMEAR (BEAKER) No acid fast bacilli (test code = 994) seen FUNGUS CULTURE + [id number] 02:47:46 Test Item Value Reference Range Interpretation Comments CULTURE (BEAKER) (test No fungus isolated in code = 1095) 28 days FUNGUS SMEAR (BEAKER) No fungi seen (test code = 1406) FUNGUS CULTURE + [id number] 02:47:45 Test Item Value Reference Range Interpretation Comments CULTURE (BEAKER) (test No fungus isolated in code = 1095) 28 days FUNGUS SMEAR (BEAKER) No fungi seen (test code = 1406) TISSUE [id number] 15:19:15Surgical Pathology Report Case: [id number] Authorizing Provider: Zarina Heredia, Collected: 04/03/2022 11:02 AM Ordering Location: [facility] PERIOPER[facility]IVE Received: 04/03/2022 11:52 AM SERVICES Pathologist: Sheri Wade MD Specimen: Gallbladder GALLBLADDER, CHOLECYSTECTOMY: - ACUTE HEMORRHAGIC CHOLECYSTITIS WITH MUCOSAL EROSION - CHOLELITHIASISCC/pl Signing Pathologist Direct Phone Line: [phone] signed by Sheri Wade MD on 04/06/2022 at 3:19 [id number] pancreatitisA. Gallbladder.Received fresh labeled with the patient's name, accession number and "gallbladder" is a 11.5 x 4.3 x 2.5 cm previously disrupted gallbladder. Due to the fragmented nature of the specimen, acystic duct is not identified. The serosa is palacios-pink, focally hemorrhagic and shaggy. Sectioning reveals a 2.4 x 2.0 x 1.5 cm yellow-green, bosselated calculus. The mucosa is palacios-pink, focally hemorrhagic and trabeculated. The wall measures up to 0.5 cm thick. Wallpaper Embosser Helper sections are submitted inA1-A2, with the presumed proximal margin in A1.Ink codeProximal margin: NIYA Olivares, HT (ASC)Performed ANAEROBIC [id number] 08:37:28 Test Item Value Reference Range Interpretation Comments CULTURE (BEAKER) (test No anaerobes isolated code = 1095) ANAEROBIC [id number] 08:36:33 Test Item Value Reference Range Interpretation Comments CULTURE (BEAKER) (test No anaerobes isolated code = 1095) SURGICALLY OBTAINED CULTURE + GRAM [id number] 09:50:11 Test Item Value Reference Range Interpretation Comments CULTURE A 2+ Same organis m has (BEAKER) (test been isolated from code = 1095) cultures(s) of the same body site and collection date . Repeat identifi cation and susceptibil ity testing perform ed only after consultat [facility].Refe r to previous cultur e ofEscherichia c lio GRAM STAIN <1+ WBCs RESULT (BEAKER) (test code = 1123) GRAM STAIN No organisms seen RESULT (BEAKER) (test code = 448746) BODY FLUID CULTURE + GRAM [id number] 09:50:01 Test Item Value Reference Range Interpretation Comments CULTURE (BEAKER) (test ESCHERICHIA COLI A 4 + Escherichia code = 1095) coli Amikacin (test code = S 1) Ampicillin + Sulbactam S (test code = 6) Aztreonam (test code = S 32) Cefepime (test code = S 51) Cefoxitin (test code = S 68) Ceftazidime (test code S = 27) Ceftriaxone (test code S = 52) Ertapenem (test code = S 38) Gentamicin (test code S = 18) Levofloxacin (test S code = 22) Meropenem (test code = S 34) Nitrofurantoin (test S code = 23) Piperacillin + S Tazobactam (test code = 29) Tetracycline (test S code = 2) Tobramycin (test code S = 25) Trimethoprim + S Sulfamethoxazole (test code = 47) GRAM STAIN RESULT 4+ WBCs (BEAKER) (test code = 1123) GRAM STAIN RESULT No organisms seen (BEAKER) (test code = 665392) POCT-GLUCOSE [id number] 11:57:12 Test Item Value Reference Range Interpretation Comments POC-GLUCOSE METER 195 mg/dL 70-110 H : TESTED A T [facility] 6720 (BEAKER) (test code = [facility], 153) [address]: Orthodontic Assistant/Techni celestine ID = [id number] for Shyann Sandhua SPIN/CONCENTRATION [id number] 10:57:51 Test Item Value Reference Range Interpretation Comments CONCENTRATION CHARGED (BEAKER) (test Done code = 2657) SPIN/CONCENTRATION [id number] 10:57:40 Test Item Value Reference Range Interpretation Comments CONCENTRATION CHARGED (BEAKER) (test Done code = 2657) POCT-GLUCOSE [id number] 07:52:19 Test Item Value Reference Range Interpretation Comments POC-GLUCOSE METER 137 mg/dL 70-110 H : TESTED A T [facility] 6720 (BEAKER) (test code = [facility], 153) 79212: Orthodontic Assistant/Techni celestine ID = [id number] for Jermaine renee, Shyanna COMPREHENSIVE METABOLIC [id number] 06:20:17 Test Item Value Reference Range Interpretation Comments TOTAL PROTEIN 7.0 gm/dL 6.0-8.3 (BEAKER) (test code = 770) ALBUMIN (BEAKER) 3.5 g/dL 3.5-5.0 (test code = 1145) ALKALINE 67 U/L 40-150 PHOSPHATASE (BEAKER) (test code = 346) BILIRUBIN TOTAL 0.4 mg/dL 0.2-1.2 (BEAKER) (test code = 377) SODIUM (BEAKER) 136 meq/L 136-145 (test code = 381) POTASSIUM (BEAKER) 3.4 meq/L 3.5-5.1 L (test code = 379) CHLORIDE (BEAKER) 105 meq/L 98-107 (test code = 382) CO2 (BEAKER) (test 23 meq/L 22-29 code = 355) BLOOD UREA 11 mg/dL 7-21 NITROGEN (BEAKER) (test code = 354) CREATININE 0.80 mg/dL 0.57-1.25 (BEAKER) (test code = 358) GLUCOSE RANDOM 173 mg/dL 70-105 H (BEAKER) (test code = 652) CALCIUM (BEAKER) 9.1 mg/dL 8.4-10.2 (test code = 697) AST (SGOT) 61 U/L 5-34 H (BEAKER) (test code = 353) ALT (SGPT) 52 U/L 6-55 (BEAKER) (test code = 347) EGFR (BEAKER) 102 Interpretatio n of eGFR (test code = 1092) mL/min/1.[address] age Description sq m Result G1 Anastasia l or high >=90 G2 Mildly decreased 60-89 G3a Mildl y to moderately 45-5 9 G3b Moderately to s everely 30-44 G4 Severl y decreased 15-29 G5 Kidney failure <15Reported eGF R is based on the CKD-EPI 2021 equation that d oes not use a race coefficientEsti mated GFR is not as accur ate as Creatinine Dennise rebecca in predicting glom erular filtration rate . Estimated GFR is not appl icable for dialysis patien ts Orthodontic Assistant ID - PIRAMOS LOperator ID - PIRAMOS EPATIC FUNCTION [id number] 06:20:17 Test Item Value Reference Range Interpretation Comments TOTAL PROTEIN (BEAKER) (test code = 7.0 gm/dL 6.0-8.3 770) ALBUMIN (BEAKER) (test code = 1145) 3.5 g/dL 3.5-5.0 BILIRUBIN TOTAL (BEAKER) (test code 0.4 mg/dL 0.2-1.2 = 377) BILIRUBIN DIRECT (BEAKER) (test 0.2 mg/dL 0.1-0.5 code = 706) ALKALINE PHOSPHATASE (BEAKER) (test 67 U/L 40-150 code = 346) AST (SGOT) (BEAKER) (test code = 61 U/L 5-34 H 353) ALT (SGPT) (BEAKER) (test code = 52 U/L 6-55 347) Orthodontic Assistant ID - ALFIE JIMENEZBC (HEMOGRAM ONLY)2022-04-04 05:29:47 Test Item Value Reference Range Interpretation Comments WHITE BLOOD CELL COUNT (BEAKER) 13.6 K/ L 3.5-10.5 H (test code = 775) RED BLOOD CELL COUNT (BEAKER) 3.45 M/ L 4.63-6.08 L (test code = 761) HEMOGLOBIN (BEAKER) (test code = 10.9 GM/DL 13.7-17.5 L 410) HEMATOCRIT (BEAKER) (test code = 30.1 % 40.1-51.0 L 411) MEAN CORPUSCULAR VOLUME (BEAKER) 87.2 fL 79.0-92.2 (test code = 753) MEAN CORPUSCULAR HEMOGLOBIN 31.6 pg 25.7-32.2 (BEAKER) (test code = 751) MEAN CORPUSCULAR HEMOGLOBIN CONC 36.2 GM/DL 32.3-36.5 (BEAKER) (test code = 752) RED CELL DISTRIBUTION WIDTH 12.6 % 11.6-14.4 (BEAKER) (test code = 412) PLATELET COUNT (BEAKER) (test 328 K/CU MM 150-450 code = 756) MEAN PLATELET VOLUME (BEAKER) 9.5 fL 9.4-12.4 (test code = 754) NUCLEATED RED BLOOD CELLS 0 /100 WBC 0-0 (BEAKER) (test code = 413) POCT-GLUCOSE [id number] 21:27:09 Test Item Value Reference Range Interpretation Comments POC-GLUCOSE METER 190 mg/dL 70-110 H : TESTED A T [facility] 6720 (BEAKER) (test code = [facility] [employer] [facility], 1538) [id number]: Orthodontic Assistant/Techni celestine ID = [id number] for RENETTA DAS POCT-GLUCOSE [id number] 11:43:29 Test Item Value Reference Range Interpretation Comments POC-GLUCOSE METER 168 mg/dL 70-110 H : TESTED A T [facility] 6720 (BEAKER) (test code = [facility], 1538) 060[address]: Orthodontic Assistant/Techni celestine ID = [id number] for Arturo Daley COMPREHENSIVE METABOLIC [id number] 05:28:17 Test Item Value Reference Range Interpretation Comments TOTAL PROTEIN 6.9 gm/dL 6.0-8.3 (BEAKER) (test code = 770) ALBUMIN (BEAKER) 3.5 g/dL 3.5-5.0 (test code = 1145) ALKALINE 75 U/L 40-150 PHOSPHATASE (BEAKER) (test code = 346) BILIRUBIN TOTAL 0.5 mg/dL 0.2-1.2 (BEAKER) (test code = 377) SODIUM (BEAKER) 130 meq/L 136-145 L (test code = 381) POTASSIUM (BEAKER) 3.2 meq/L 3.5-5.1 L (test code = 379) CHLORIDE (BEAKER) 103 meq/L 98-107 (test code = 382) CO2 (BEAKER) (test 20 meq/L 22-29 L code = 355) BLOOD UREA 6 mg/dL 7-21 L NITROGEN (BEAKER) (test code = 354) CREATININE 0.81 mg/dL 0.57-1.25 (BEAKER) (test code = 358) GLUCOSE RANDOM 125 mg/dL 70-105 H (BEAKER) (test code = 652) CALCIUM (BEAKER) 8.7 mg/dL 8.4-10.2 (test code = 697) AST (SGOT) 21 U/L 5-34 (BEAKER) (test code = 353) ALT (SGPT) 23 U/L 6-55 (BEAKER) (test code = 347) EGFR (BEAKER) 102 Interpretatio n of eGFR (test code = 1092) mL/min/1.[address] age Description sq m Result G1 Anastasia l or high >=90 G2 Mildly decreased 60-89 G3a Mildl y to moderately 45-5 9 G3b Moderately to s everely 30-44 G4 Severl y decreased 15-29 G5 Kidney failure <15Reported eGF R is based on the CKD-EPI 1 equation that d oes not use a race coefficientEsti mated GFR is not as accur ate as Creatinine Dennise rebecca in predicting glom erular filtration rate . Estimated GFR is not appl icable for dialysis patien ts Orthodontic Assistant ID - MITCHCBC (HEMOGRAM ONLY)2022-04-03 04:38:16 Test Item Value Reference Range Interpretation Comments WHITE BLOOD CELL COUNT (BEAKER) 15.4 K/ L 3.5-10.5 H (test code = 775) RED BLOOD CELL COUNT (BEAKER) 3.75 M/ L 4.63-6.08 L (test code = 761) HEMOGLOBIN (BEAKER) (test code = 11.7 GM/DL 13.7-17.5 L 410) HEMATOCRIT (BEAKER) (test code = 33.3 % 40.1-51.0 L 411) MEAN CORPUSCULAR VOLUME (BEAKER) 88.8 fL 79.0-92.2 (test code = 753) MEAN CORPUSCULAR HEMOGLOBIN 31.2 pg 25.7-32.2 (BEAKER) (test code = 751) MEAN CORPUSCULAR HEMOGLOBIN CONC 35.1 GM/DL 32.3-36.5 (BEAKER) (test code = 752) RED CELL DISTRIBUTION WIDTH 12.6 % 11.6-14.4 (BEAKER) (test code = 412) PLATELET COUNT (BEAKER) (test 281 K/CU MM 150-450 code = 756) MEAN PLATELET VOLUME (BEAKER) 9.6 fL 9.4-12.4 (test code = 754) NUCLEATED RED BLOOD CELLS 0 /100 WBC 0-0 (BEAKER) (test code = 413) POCT-GLUCOSE [id number] 04:13:01 Test Item Value Reference Range Interpretation Comments POC-GLUCOSE METER 122 mg/dL 70-110 H : TESTED A T [facility] 6720 (BEAKER) (test code = [facility], 1538) 87783: Orthodontic Assistant/Techni celestine ID = [id number] for UN ITE JR, PARRIS POCT-GLUCOSE [id number] 21:28:17 Test Item Value Reference Range Interpretation Comments POC-GLUCOSE METER 150 mg/dL 70-110 H : TESTED A T [facility] 6720 (BEAKER) (test code = [facility], 1538) 55617: Orthodontic Assistant/Techni celestine ID = [id number] for UN ITE JR, PARRIS POCT-GLUCOSE [id number] 16:05:21 Test Item Value Reference Range Interpretation Comments POC-GLUCOSE METER 160 mg/dL 70-110 H : TESTED A T [facility] 6720 (BEAKER) (test code = JORDIN Jacobson [place], 1538) [address]: Orthodontic Assistant/Techni celestine ID = [id number] for Krishan Mir POCT-GLUCOSE [id number] 11:51:29 Test Item Value Reference Range Interpretation Comments POC-GLUCOSE METER 117 mg/dL 70-110 H : TESTED A T [facility] 6720 (BEAKER) (test code = JORDIN Jacobson [facility], 1538) 97358: Orthodontic Assistant/Techni celestine ID = [id number] for Krishan Mir HEMOGLOBIN [id number] 10:49:48 Test Item Value Reference Range Interpretation Comments HEMOGLOBIN A1C 7.2 % See_Comment H [Automated m essage] ELECTROPHORESIS (BEAKER) The system which (test code = 3811) generated this result transmitted ref erence range: <=5.6%. The reference range was not used to int erpret this result as normal/abnormal . "The A1c is measured using a NGSP-certified method. HbA1c value equal to or greater than 6.5% as thediagnosis cutoff for diabetes. An HbA1c value of 5.7- 6.4% indicates increased risk for diabetes (prediabetes)."Orthodontic Assistant ID - ADM COMPREHENSIVE METABOLIC [id number] 07:07:03 Test Item Value Reference Range Interpretation Comments TOTAL PROTEIN 7.0 gm/dL 6.0-8.3 (BEAKER) (test code = 770) ALBUMIN (BEAKER) 3.7 g/dL 3.5-5.0 (test code = 1145) ALKALINE 64 U/L 40-150 PHOSPHATASE (BEAKER) (test code = 346) BILIRUBIN TOTAL 0.9 mg/dL 0.2-1.2 (BEAKER) (test code = 377) SODIUM (BEAKER) 129 meq/L 136-145 L Discordant f rom previous (test code = 381) results. C linical correlation sug gested. POTASSIUM (BEAKER) 3.5 meq/L 3.5-5.1 (test code = 379) CHLORIDE (BEAKER) 103 meq/L 98-107 (test code = 382) CO2 (BEAKER) (test 17 meq/L 22-29 L code = 355) BLOOD UREA 9 mg/dL 7-21 NITROGEN (BEAKER) (test code = 354) CREATININE 0.86 mg/dL 0.57-1.25 (BEAKER) (test code = 358) GLUCOSE RANDOM 143 mg/dL 70-105 H (BEAKER) (test code = 652) CALCIUM (BEAKER) 8.7 mg/dL 8.4-10.2 (test code = 697) AST (SGOT) 27 U/L 5-34 (BEAKER) (test code = 353) ALT (SGPT) 29 U/L 6-55 (BEAKER) (test code = 347) EGFR (BEAKER) 101 Interpretatio n of eGFR (test code = 1092) mL/min/1.[address] age Description sq m Result G1 Anastasia l or high >=90 G2 Mildly decreased 60-89 G3a Mildl y to moderately 45-5 9 G3b Moderately to s everely 30-44 G4 Severl y decreased 15-29 G5 Kidney failure <15Reported eGF R is based on the CKD-EPI 2020 equation that d oes not use a race coefficientEsti mated GFR is not as accur ate as Creatinine Dennise rebecca in predicting glom erular filtration rate . Estimated GFR is not appl icable for dialysis patien ts Orthodontic Assistant ID - PIAYA LPROTHROMBIN TIME/[id number] 05:19:10 Test Item Value Reference Range Interpretation Comments PROTIME (BEAKER) 14.8 seconds 11.9-14.2 H (test code = 759) INR (BEAKER) (test 1.23 See_Comment [Automat ed message] code = 370) The system From [employer] generated this result transmitted ref erence range: <=5.90. The reference range was not used to int erpret this result as normal/abnormal . RECOMMENDED COUMADIN/WARFARIN INR THERAPY RANGESSTANDARD DOSE: 2.0 - 3.0 Includes: PROPHYLAXIS for venous thrombosis, systemic embolization; TREATMENT for venous thrombosis and/or pulmonary embolus.HIGH RISK: Target INR is 2.5-3.5 for patients with mechanical heart valves.CBC (HEMOGRAM ONLY)2022-04-02 05:17:49 Test Item Value Reference Range Interpretation Comments WHITE BLOOD CELL COUNT (BEAKER) 19.6 K/ L 3.5-10.5 H (test code = 775) RED BLOOD CELL COUNT (BEAKER) 3.88 M/ L 4.63-6.08 L (test code = 761) HEMOGLOBIN (BEAKER) (test code = 12.0 GM/DL 13.7-17.5 L 410) HEMATOCRIT (BEAKER) (test code = 35.4 % 40.1-51.0 L 411) MEAN CORPUSCULAR VOLUME (BEAKER) 91.2 fL 79.0-92.2 (test code = 753) MEAN CORPUSCULAR HEMOGLOBIN 30.9 pg 25.7-32.2 (BEAKER) (test code = 751) MEAN CORPUSCULAR HEMOGLOBIN CONC 33.9 GM/DL 32.3-36.5 (BEAKER) (test code = 752) RED CELL DISTRIBUTION WIDTH 12.5 % 11.6-14.4 (BEAKER) (test code = 412) PLATELET COUNT (BEAKER) (test 270 K/CU MM 150-450 code = 756) MEAN PLATELET VOLUME (BEAKER) 9.4 fL 9.4-12.4 (test code = 754) NUCLEATED RED BLOOD CELLS 0 /100 WBC 0-0 (BEAKER) (test code = 413) POCT-GLUCOSE [id number] 05:11:26 Test Item Value Reference Range Interpretation Comments POC-GLUCOSE METER 153 mg/dL 70-110 H : TESTED A T [facility] 6720 ([facility]) (test code = JORDIN Jacobson [facility], 1538) 9[address]: Orthodontic Assistant/Techni celestine ID = [id number] for Gris Henry SARS-COV2/RT-PCR ([facility])2022-04-02 03:39:45 Test Item Value Reference Range Interpretation Comments SARS-COV2/RT-PCR (test Negative Not Detected, Negative, code = 7095189) See external report for linked test SARS-COV-2 PERFORMING LAB [facility] KRAIG (test code = 9526584) Negative result for this test determines that SARS-CoV-2 RNA was not present in the specimen above the Limit of Detection (LOD). However, Negative results do not preclude SARS-CoV-2 infection and should not be used as the sole basis for treatment or patient management decisions. Negative results must be combined with clinical observations, patient history, and epidemiological information. A false negative result may occur if a specimen is improperly collected, transported or handled. A false negative result should be considered if patient's recent exposures or clinical presentation indicate that COVID-19 (SARS-CoV-2) is likely and diagnostic tests for other causes of illness are negative. Re-testing should be considered in cases of suspected false negatives.The limit of detection for this assay is 800 copies/mL.This SARS CoV-2 test is a real-time RT-PCR test intended for the qualitative detection of nucleic acid from SARS-CoV-2 in a nasopharyngeal swab specimen collected from individuals suspected of COVID-19 by their healthcare provider.This test has not been Food and Drug Administration (FDA) cleared or approved. This is a modified version of an approved Emergency Use Authorization (EUA) and is in the process of review by the FDA. Once authorized by the FDA, the issued EUA will be effective until the declaration that circumstances exist justifying the authorization of the emergency use ofin vitro diagnostic tests for detection and/or diagnosis of COVID-19 is terminated under Section 564(b)(2) of the Act or the EUA is revoked under Section 564(g) of the Act.Fact Sheet for Healthcare Prov iders:https://www.[employer]/sites/default/files/product/documents/Fact_Sheet_HC _Eawqeczal_Cwnt_ORUV-DwG-2.pdfFact Sheet for Healthcare Patients:https://www.[employer]/sites/default/files/product/docume nts/Lvjo_Ozynz_Wotodjru_Gtto_FQHI-HtU-5.pdfPerforming Laboratory:[facility], [place] [address]FWZX-[id number] METER 2022-04-01 23:47:57 Test Item Value Reference Range Interpretation Comments POC-GLUCOSE METER 175 mg/dL 70-110 H : TESTED A T [facility] 6720 ([employer]) (test code = [facility], 1538) 48771: Orthodontic Assistant/Techni celestine ID = [id number] for Gris Henry POCT-GLUCOSE [id number] 15:17:44 Test Item Value Reference Range Interpretation Comments POC-GLUCOSE METER 158 mg/dL 70-110 H : TESTED A T [facility] 6720 ([employer]) (test code = [facility], 1538) 336[address]: Orthodontic Assistant/Techni celestine ID = [id number] for Jermaine renee, Areiona POCT-GLUCOSE [id number] 11:31:17 Test Item Value Reference Range Interpretation Comments POC-GLUCOSE METER 189 mg/dL 70-110 H : TESTED A T [facility] 6720 (BEAKER) (test code = [facility], 1538) 48064: Orthodontic Assistant/Techni celestine ID = [id number] for Jermaine renee, Areiona POCT-GLUCOSE [id number] 08:18:23 Test Item Value Reference Range Interpretation Comments POC-GLUCOSE METER 137 mg/dL 70-110 H : TESTED A T [facility] 6720 (BEAKER) (test code = [facility], 1538) 96785: Orthodontic Assistant/Techni celestine ID = [id number] for Jermaine renee, Areiona [id number] 05:59:26 Test Item Value Reference Range Interpretation Comments LIPASE (BEAKER) (test code = 749) 762 U/L 8-78 H Orthodontic Assistant ID - MEG MHEPATIC FUNCTION [id number] 05:59:25 Test Item Value Reference Range Interpretation Comments TOTAL PROTEIN (BEAKER) (test code = 8.5 gm/dL 6.0-8.3 H 770) ALBUMIN (BEAKER) (test code = 1145) 4.6 g/dL 3.5-5.0 BILIRUBIN TOTAL (BEAKER) (test code 0.7 mg/dL 0.2-1.2 = 377) BILIRUBIN DIRECT (BEAKER) (test 0.3 mg/dL 0.1-0.5 code = 706) ALKALINE PHOSPHATASE (BEAKER) (test 79 U/L 40-150 code = 346) AST (SGOT) (BEAKER) (test code = 42 U/L 5-34 H 353) ALT (SGPT) (BEAKER) (test code = 40 U/L 6-55 347) Orthodontic Assistant ID - MEG MBASIC METABOLIC [id number] 05:59:25 Test Item Value Reference Range Interpretation Comments SODIUM (BEAKER) 137 meq/L 136-145 (test code = 381) POTASSIUM 3.5 meq/L 3.5-5.1 (BEAKER) (test code = 379) CHLORIDE (BEAKER) 102 meq/L 98-107 (test code = 382) CO2 (BEAKER) 24 meq/L 22-29 (test code = 355) BLOOD UREA 12 mg/dL 7-21 NITROGEN (BEAKER) (test code = 354) CREATININE 0.93 mg/dL 0.57-1.25 (BEAKER) (test code = 358) GLUCOSE RANDOM 173 mg/dL 70-105 H (BEAKER) (test code = 652) CALCIUM (BEAKER) 9.7 mg/dL 8.4-10.2 (test code = 697) EGFR (BEAKER) 96 Interpretatio n of eGFR (test code = mL/min/1.73 values Stage D escription 1092) sq m Result G1 Anastasia l or high >=90 G2 Mildly decreased 60-89 G3a Mildl y to moderately 45-5 9 G3b Moderately to s everely 30-44 G4 Severl y decreased 15-29 G5 Kidney failure <15Reported eGF R is based on the CKD-EPI 2020 equation that d oes not use a race coefficientEsti mated GFR is not as accur ate as Creatinine Dennise rebecca in predicting glom erular filtration rate . Estimated GFR is not appl icable for dialysis patien ts Orthodontic Assistant ID - MEG [id number] 05:59:25 Test Item Value Reference Range Interpretation Comments MAGNESIUM (BEAKER) (test code = 1.8 mg/dL 1.6-2.6 627) Orthodontic Assistant ID - MEG [id number] 05:59:25 Test Item Value Reference Range Interpretation Comments PHOSPHORUS (BEAKER) (test code = 2.0 mg/dL 2.3-4.7 L 604) Orthodontic Assistant ID - MEG MCBC W/PLT COUNT & AUTO [id number] 05:36:10 Test Item Value Reference Range Interpretation Comments WHITE BLOOD CELL COUNT (BEAKER) 16.1 K/ L 3.5-10.5 H (test code = 775) RED BLOOD CELL COUNT (BEAKER) 4.48 M/ L 4.63-6.08 L (test code = 761) HEMOGLOBIN (BEAKER) (test code = 14.0 GM/DL 13.7-17.5 410) HEMATOCRIT (BEAKER) (test code = 41.6 % 40.1-51.0 411) MEAN CORPUSCULAR VOLUME (BEAKER) 92.9 fL 79.0-92.2 H (test code = 753) MEAN CORPUSCULAR HEMOGLOBIN 31.3 pg 25.7-32.2 (BEAKER) (test code = 751) MEAN CORPUSCULAR HEMOGLOBIN CONC 33.7 GM/DL 32.3-36.5 (BEAKER) (test code = 752) RED CELL DISTRIBUTION WIDTH 12.5 % 11.6-14.4 (BEAKER) (test code = 412) PLATELET COUNT (BEAKER) (test 351 K/CU MM 150-450 code = 756) MEAN PLATELET VOLUME (BEAKER) 9.6 fL 9.4-12.4 (test code = 754) NUCLEATED RED BLOOD CELLS 0 /100 WBC 0-0 (BEAKER) (test code = 413) NEUTROPHILS RELATIVE PERCENT 84 % (BEAKER) (test code = 429) LYMPHOCYTES RELATIVE PERCENT 8 % (BEAKER) (test code = 430) MONOCYTES RELATIVE PERCENT 7 % (BEAKER) (test code = 431) EOSINOPHILS RELATIVE PERCENT 0 % (BEAKER) (test code = 432) BASOPHILS RELATIVE PERCENT 0 % (BEAKER) (test code = 437) NEUTROPHILS ABSOLUTE COUNT 13.56 K/ L 1.78-5.38 H (BEAKER) (test code = 670) LYMPHOCYTES ABSOLUTE COUNT 1.22 K/ L 1.32-3.57 L (BEAKER) (test code = 414) MONOCYTES ABSOLUTE COUNT (BEAKER) 1.13 K/ L 0.30-0.82 H (test code = 415) EOSINOPHILS ABSOLUTE COUNT 0.02 K/ L 0.04-0.54 L (BEAKER) (test code = 416) BASOPHILS ABSOLUTE COUNT (BEAKER) 0.05 K/ L 0.01-0.08 (test code = 417) IMMATURE GRANULOCYTES-RELATIVE 1 % 0-1 PERCENT (BEAKER) (test code = 2801) BEDSIDE GLUCOSE [id number] 17:20:00 Test Item Value Reference Range Interpretation Comments Comment1 (test code = Comment1) Notify RN/ [facility] GLUCOSE [id number] 17:20:00 Test Item Value Reference Range Interpretation Comments Gluc POC [facility] (test code = Gluc POC 96 70-[address] [facility]) [facility] GLUCOSE [id number] 17:20:00 Test Item Value Reference Range Interpretation Comments Comment1 (test code = Comment1) Notify RN/MD [facility] GLUCOSE [id number] 17:20:00 Test Item Value Reference Range Interpretation Comments Gluc POC [facility] (test code = Gluc POC 96 70[address]) [facility]
[2023-06-05 04:11] LABS: Absolute Lymphocytes (CBC) 2.7 K/uL (0.7-4.9); Hematocrit 40.7 % (39.6-49.0); Lymphocytes % 24.6 % (15.3-44.8); Platelets 365 thou/uL (152-406); RBC Red Blood Cell Count 4.38 M/uL (4.33-5.43)
[2023-06-05] MEDS ORDERED: ONDANSETRON 4 MG/2 ML VIAL ONE (04:28)
[2023-06-05] MEDS ORDERED: FAMOTIDINE 20 MG/2 ML VIAL IV ONE (04:28)
[2023-06-05] MEDS ORDERED: MORPHINE 4 MG/ML SYR ONE ×2 (04:28→06:26)
[2023-06-05] MEDS ORDERED: DICYCLOMINE HCL 20 MG/2 ML AMP IM ONE (04:28)
[2023-06-05] MEDS ORDERED: NA CHLORIDE 0.9% 1,000 ML ONE ×2 (04:28→06:27)
[2023-06-05] MEDS ORDERED: KETOROLAC 30 MG/ML INJ ONE (04:28)
[2023-06-05 04:29] LABS: Albumin 3.8 g/dL (3.4-5.0); Bilirubin Total 0.2 mg/dL (0.2-1.0); Potassium 3.4 mEq/L (3.5-5.1); Protein, Total 7.9 g/dL (6.4-8.2)
--- NOTE | 2023-06-05 06:05 | EDPHYS ---
Physician Documentation [facility] Name: Pillo Pickens Age: 62 yrs Sex: Male : 1960 Arrival Date: 06/05/2023 Time: 02:45 Bed 15 Private MD: ED Physician Azael Putnam HPI: 06/05 02:53 This 62 yrs old Male presents to ER via Unassigned with complaints of sp4 Abdominal Pain. 03:10 PMH - Allergies: No Known Allergies; Home Meds: Metformin Unknown Oral; Epclusa Unknown sp4 oral; unknown bp medicaiton PMHx: bacterial meningitits , Chronic pain; Hypercholesterolemia; Hypertensive disorder; Hepatitis-C. 62-year-old male presents with worsening epigastric abdominal pain. Pain started 2 days ago and has intensified it is now constant and epigastric in location. Patient has history of H. pylori. History of cholecystectomy and history of morphine pump placement. Patient morphine pump was taken out after it was proven to be nonfunctional. Patient states he has history of diabetes and chronic pain that is being managed with gabapentin. . Historical: - Allergies: 03:01 No Known Allergies; kl - PMHx: 03:01 bacterial meningitits (2012); Chronic pain; Hepatitis-C; Hypercholesterolemia; kl Hypertensive disorder; 03:22 H Pylori; kl - PSHx: 03:01 Cholecystectomy; kl - Immunization history:: Adult Immunizations not immunized. - Social history:: Smoking status: Patient reports the use of cigarette tobacco products, smokes one pack cigarettes per day. - Family history:: not pertinent. ROS: 03:10 Constitutional: Negative for fever, chills, and weight loss, Abdomen/GI: Positive sp4 epigastric pain, negative vomiting negative diarrhea negative rectal bleed 03:10 All other systems are negative, Exam: 03:10 Constitutional: This is a well developed, well nourished patient who is awake, alert, sp4 and in no acute distress. Head/Face: Normocephalic, atraumatic. Eyes: Pupils equal round and reactive to light, extra-ocular motions intact. Lids and lashes normal. Conjunctiva and sclera are not injected. Cornea within normal limits. Periorbital areas with no swelling, redness, or edema. ENT: Nares patent. No nasal discharge, no septal abnormalities noted. Tympanic membranes are normal and external auditory canals are clear. Oropharynx with no redness, swelling, or masses, exudates, or evidence of obstruction, uvula midline. Mucous membranes moist. Neck: Trachea midline, no thyromegaly or masses palpated, and no cervical lymphadenopathy. Supple, full range of motion without nuchal rigidity, or vertebral point tenderness. Chest/axilla: Normal chest wall appearance and motion. Nontender with no deformity. No lesions are appreciated. Cardiovascular: Regular rate and rhythm with a normal S1 and S2. No gallops, murmurs, or rubs. Normal PMI, no JVD. No pulse deficits. Respiratory: Lungs have equal breath sounds bilaterally, clear to auscultation and percussion. No rales, rhonchi or wheezes noted. No increased work of breathing, no retractions or nasal flaring. Abdomen/GI: Soft, with normal bowel sounds. No distension or tympany. No guarding or rebound. Positive epigastric tenderness Back: No spinal tenderness. No costovertebral tenderness. Male : Normal genitalia with no discharge or lesions. Skin: Warm, dry with normal turgor. Normal color with no rashes, no lesions, and no evidence of cellulitis. MS/ Extremity: Pulses equal, no cyanosis. Neurovascular intact. Full, normal range of motion. Neuro: Awake and alert, GCS 15, oriented to person, place, time, and situation. Cranial nerves II-XII grossly intact. Motor strength 5/5 in all extremities. Sensory grossly intact. Psych: Awake, alert, with orientation to person, place and time. Behavior, mood, and affect are within normal limits Vital Signs: 02:59 BP 164 / 89; Pulse 85; Resp 16; Temp 98.7(O); Pulse Ox 97% on R/A; Weight 68.04 kg (R); kl Height 5 ft. 8 in. ; Pain 9/10; 04:15 BP 163 / 90; Pulse 82; Resp 17; Pulse Ox 97% ; Pain 8/10; jj7 05:15 BP 152 / 73; Pulse 72; Resp 20; Pulse Ox 97% ; jj7 06:15 BP 140 / 79; Pulse 61; Resp 20; Pulse Ox 97% ; Pain 6/10; jj7 07:06 BP 156 / 78; Pulse 61; Resp 18; Pulse Ox 99% ; Pain 3/10; jj7 02:59 Body Mass Index 22.81 (68.04 kg, 172.72 cm) kl 02:59 Pain Scale: Adult kl 04:15 Pain Scale: Adult jj7 06:15 Pain Scale: Adult jj7 07:06 Pain Scale: Adult jj7 MDM: 03:54 Patient medically screened. sp4 05:15 Differential Diagnosis altered mental status, sepsis, flu. sp4 05:57 Data reviewed: vital signs, nurses notes, lab test result(s), radiologic studies, CT sp4 scan. ED course: CT report - COMPARISON: 03/31/2022 CT abdomen pelvis with multiphase contrast FINDINGS: LUNG BASES: Unremarkable. No mass. No consolidation. ABDOMEN: LIVER: Unremarkable. No mass. GALLBLADDER AND BILE DUCTS: Cholecystectomy. No ductal dilation. PANCREAS: Unremarkable. No mass. No ductal dilation. SPLEEN: Unremarkable. No splenomegaly. ADRENALS: Unremarkable. No mass. KIDNEYS AND URETERS: Unremarkable. No solid mass. No hydronephrosis. STOMACH AND BOWEL: Unremarkable. No obstruction. No mucosal thickening. PELVIS: APPENDIX: No findings to suggest acute appendicitis. BLADDER: Unremarkable. No mass. REPRODUCTIVE: Unremarkable as visualized. ABDOMEN and PELVIS: INTRAPERITONEAL SPACE: Unremarkable. No free air. No significant fluid collection. BONES/JOINTS: Multilevel degenerative changes with intervertebral disc spacer redemonstrated at the L5-S1 level and postsurgical/bone harvest changes of the posterior left iliac bone. Left L5 hemilaminectomy changes with no acute osseous abnormality. No dislocation. SOFT TISSUES: Suspected subtle edema demonstrated about the pancreatic head and uncinate process, with no abnormal focal pancreatic mass or ductal dilatation appreciated. VASCULATURE: Moderate calcified atherosclerosis of the abdominal aorta and left greater than right iliofemoral arteries without aneurysmal dilatation. LYMPH NODES: Unremarkable. No enlarged lymph nodes. IMPRESSION: 1. Suspected subtle edema demonstrated about the pancreatic head and uncinate process, with no abnormal focal pancreatic mass or ductal dilatation appreciated. Recommend clinical correlation for evidence of acute pancreatitis and correlation with lipase levels. 2. Otherwise, no acute findings of the abdomen or pelvis.. 06:02 Consideration of Admission/Observation Patient was admitted/placed on observation. sp4 Escalation of care including admission/observation considered. Management of patient was discussed with the following: Hospitalist: Admitting hospitalist. ED course: The patient presents with epigastric upper abdominal pain. Patient states he had 6 pack beer yesterday with a game . Patient states he has type [address] and lipase levels consistent with acute pancreatitis. Patient warrants admission to the hospital for management of acute pancreatitis. We will advised to abstain from alcohol. 06/05 02:58 Order name: CBC with Diff; Complete Time: 05:13 sp4 06/05 02:58 Order name: CMP; Complete Time: 05:13 sp4 06/05 02:58 Order name: Lipase; Complete Time: 05:13 sp4 06/05 02:58 Order name: Urinalysis w/ reflexes sp4 06/05 05:14 Order name: Alcohol Level sp4 06/05 08:14 Order name: Glucose, Ancillary Testing EDND 06/05 03:08 Order name: CT Abd/Pelvis - IV Contrast Only sp4 06/05 02:58 Order name: IV Saline Lock; Complete Time: 03:51 sp4 06/05 02:58 Order name: Labs collected and sent; Complete Time: 03:51 sp4 Administered Medications: 04:26 Drug: NS 0.9% IV 1000 ml IV at 1 bolus Per protocol; 1000 mL bolus Route: IV; Rate: 1 jj7 bolus; Site: right forearm; 04:26 Drug: morphine IVP or IV 4 mg IVP once over 4 mins Route: IVP; Infused Over: 4 mins; jj7 Site: right forearm; 06:27 Follow up: Response: Marked relief of symptoms jj7 04:26 Drug: Ketorolac IVP 30 mg IVP once Route: IVP; Site: right forearm; jj7 06:27 Follow up: Response: Marked relief of symptoms jj7 04:26 Drug: Dicyclomine IM 20 mg IM once Route: IM; Site: left ventrogluteal; jj7 06:27 Follow up: Response: No adverse reaction jj7 04:26 Drug: Famotidine IVP 20 mg IVP once; dilute with 10 mL 0.9% NaCl; give over 2 minutes jj7 Route: IVP; Site: right forearm; 06:27 Follow up: Response: No adverse reaction jj7 04:27 Drug: Ondansetron IVP 4 mg IVP once; over 2 minutes Route: IVP; Site: right forearm; jj7 06:24 Drug: morphine IVP or IV 4 mg IVP once over 4 mins Route: IVP; Infused Over: 4 mins; jj7 Site: right antecubital; 06:24 Drug: metoCLOPramide IVP 10 mg IVP once; over 1 to 2 minutes Route: IVP; Site: right jj7 antecubital; 06:24 Drug: NS 0.45 % with KCl IV 20 mEq/L 1000 ml IV at 125 ml/hr once Route: IV; Rate: 125 jj7 ml/hr; Site: right antecubital; Disposition Summary: 06/05/23 06:05 Hospitalization Ordered Notes: Hospitalization Status: Inpatient Admission sp4 Provider: Jaime Wyatt sp4 Location: Telemetry/MedSurg (Inpatient) sp4 Condition: Stable sp4 Problem: new sp4 Symptoms: have improved sp4 Bed/Room Type: Standard sp4 Room Assignment: 408(06/05/23 10:50) bd Diagnosis - Acute alcoholic pancreatitis sp4 Forms: - Medication Reconciliation Form sp4 - SBAR form sp4 - Leadership Thank You Letter sp4 Signatures: Dispatcher [employer] Anne Chamberlain Kimberly RN Diane Al RN RN jAzael Guajardo MD MD sp4 Corrections: (The following items were deleted from the chart) 10:50 06:05 sp4 bd
--- NOTE | 2023-06-05 06:05 | ER ---
Nurse's Notes [facility] Name: Pillo Pickens Age: 62 yrs Sex: Male : 1960 Arrival Date: 06/05/2023 Time: 02:45 Bed 15 Private MD: Diagnosis: Acute alcoholic pancreatitis Presentation: 06/05 02:59 Chief complaint: Patient states: epigastric pain radiates to back x 2 days previous kl cholecystectomy. Coronavirus screen: Vaccine status: Patient reports being unvaccinated. Ebola Screen: Patient negative for fever greater than or equal to 101.5 degrees Fahrenheit, and additional compatible Ebola Virus Disease symptoms. Initial Sepsis Screen: Does the patient meet any 2 criteria? No. Patient's initial sepsis screen is negative. Does the patient have a suspected source of infection? No. Patient's initial sepsis screen is negative. Risk Assessment: Do you want to hurt yourself or someone else? Patient reports no desire to harm self or others. 02:59 Method Of Arrival: Ambulatory kl 02:59 Acuity: SHADY 3 kl Triage Assessment: 03:01 Pain: Complains of pain in epigastric area Pain currently is 9 out of 10 on a pain kl scale. GI: Reports upper abdominal pain, nausea. Historical: - Allergies: 03:01 No Known Allergies; kl - PMHx: 03:01 bacterial meningitits (2012); Chronic pain; Hepatitis-C; Hypercholesterolemia; kl Hypertensive disorder; 03:22 H Pylori; kl - PSHx: 03:01 Cholecystectomy; kl - Immunization history:: Adult Immunizations not immunized. - Social history:: Smoking status: Patient reports the use of cigarette tobacco products, smokes one pack cigarettes per day. - Family history:: not pertinent. Screenin:[facility] ED Fall Risk Assessment (Adult) History of falling in the last 3 months, jj7 including since admission No falls in past 3 months (0 pts) Confusion or Disorientation No (0 pts) Intoxicated or Sedated No (0 pts) Impaired Gait No (0 pts) Mobility Assist Device Used No (0 pt) Altered Elimination No (0 pt) Score/Fall Risk Level 0 - 2 = Low Risk Oriented to surroundings, Maintained a safe environment, Educated pt \T\ family on fall prevention, incl call for assistance when getting out of bed. Abuse screen: Denies threats or abuse. Nutritional screening: No deficits noted. Tuberculosis screening: No symptoms or risk factors identified. Assessment: 04:15 Pain: Complains of pain in epigastric area Pain currently is 8 out of 10 on a pain jj7 scale. Vital Signs: 02:59 BP 164 / 89; Pulse 85; Resp 16; Temp 98.7(O); Pulse Ox 97% on R/A; Weight 68.04 kg (R); kl Height 5 ft. 8 in. ; Pain 9/10; 04:15 BP 163 / 90; Pulse 82; Resp 17; Pulse Ox 97% ; Pain 8/10; jj7 05:15 BP 152 / 73; Pulse 72; Resp 20; Pulse Ox 97% ; jj7 06:15 BP 140 / 79; Pulse 61; Resp 20; Pulse Ox 97% ; Pain 6/10; jj7 07:06 BP 156 / 78; Pulse 61; Resp 18; Pulse Ox 99% ; Pain 3/10; jj7 02:59 Body Mass Index 22.81 (68.04 kg, 172.72 cm) kl 02:59 Pain Scale: Adult kl 04:15 Pain Scale: Adult jj7 06:15 Pain Scale: Adult jj7 07:06 Pain Scale: Adult jj7 ED Course: 02:49 Patient arrived in ED. ag3 02:53 Azael Putnam MD is Attending Physician. sp4 03:00 Triage completed. kl 03:50 Initial lab(s) drawn, by ut, sent to lab. Inserted saline lock: 20 gauge in right jw7 antecubital area, using aseptic technique. Blood collected. 04:15 Patient has correct armband on for positive identification. Bed in low position. Call jj7 light in reach. Side rails up X 1. 04:25 Diane Castro RN is Primary Nurse. jj7 04:53 CT Abd/Pelvis - IV Contrast Only In Process Unspecified. EDMS 06:04 Jaime Wyatt MD is Hospitalizing Provider. sp4 06:24 Alcohol Level Sent. jj7 06:24 Urinalysis w/ reflexes Sent. jj7 11:23 No provider procedures requiring assistance completed. Patient admitted, IV remains in ko1 place. 11:23 Provided Education on: na. ko1 Administered Medications: 04:26 Drug: NS 0.9% IV 1000 ml IV at 1 bolus Per protocol; 1000 mL bolus Route: IV; Rate: 1 jj7 bolus; Site: right forearm; 04:26 Drug: morphine IVP or IV 4 mg IVP once over 4 mins Route: IVP; Infused Over: 4 mins; jj7 Site: right forearm; 06:27 Follow up: Response: Marked relief of symptoms jj7 04:26 Drug: Ketorolac IVP 30 mg IVP once Route: IVP; Site: right forearm; jj7 06:27 Follow up: Response: Marked relief of symptoms jj7 04:26 Drug: Dicyclomine IM 20 mg IM once Route: IM; Site: left ventrogluteal; jj7 06:27 Follow up: Response: No adverse reaction jj7 04:26 Drug: Famotidine IVP 20 mg IVP once; dilute with 10 mL 0.9% NaCl; give over 2 minutes jj7 Route: IVP; Site: right forearm; 06:27 Follow up: Response: No adverse reaction jj7 04:27 Drug: Ondansetron IVP 4 mg IVP once; over 2 minutes Route: IVP; Site: right forearm; jj7 06:24 Drug: morphine IVP or IV 4 mg IVP once over 4 mins Route: IVP; Infused Over: 4 mins; jj7 Site: right antecubital; 06:24 Drug: metoCLOPramide IVP 10 mg IVP once; over 1 to 2 minutes Route: IVP; Site: right jj7 antecubital; 06:24 Drug: NS 0.45 % with KCl IV 20 mEq/L 1000 ml IV at 125 ml/hr once Route: IV; Rate: 125 jj7 ml/hr; Site: right antecubital; Medication: 04:15 VIS not applicable for this client. jj7 Outcome: 06:05 Decision to Hospitalize by Provider. sp4 11:23 Admitted to Med/surg accompanied by tech, via wheelchair, room 408, with chart, Report ko1 called to JHONATAN Brambila 11:23 Condition: stable 11:23 Instructed on the need for admit, 11:45 Patient left the ED. ap3 Signatures: Dispatcher [employer] Diamond Bauer RN RN kl Prokisch, Amanda, RN RN ap3 Lizzie Murguia3 Marlin Roy, RN RN jw7 Adela Franklin RN RN ko1 Diane Castro RN RN jj7 Azael Putnam MD MD sp4
--- NOTE | 2023-06-05 06:16 | P.HP ---
Date of Service: 06/05/23 Certification for Inpatient Patient admitted to: Inpatient With expected LOS: >2 Midnights Patient will require the following post-hospital care: None Practitioner: I am a practitioner with admitting privileges, knowledge of patient current condition, hospital course, and medical plan of care. Services: Services provided to patient in accordance with Admission requirements found in Title 42 Section 412.3 of the Code of Federal Regulations Patient History Date of Service: 06/05/23 Reason for admission: Abdominal pain, pancreatitis History of Present Illness: 62-year-old male patient with no significant medical history except for status postcholecystectomy and history of H. pylori infection who was evaluated for episode of abdominal pain. Patient reported abdominal pain of 3 days duration. Pain is located in the epigastric region and boring all the way to the back. It is rated 9 out of 10 in intensity without associated diarrhea, nausea, vomiting episode. He denies fever, chills. He denies trauma to the abdomen. Because of concerns for pancreatitis patient was admitted for inpatient care. Allergies NKDA Allergy (Uncoded 08/02/15 09:33) Unknown Review of Systems General: Malaise Eyes: Unremarkable ENT: Unremarkable Respiratory: Unremarkable Cardiovascular: Unremarkable Gastrointestinal: Abdominal Pain Genitourinary: Unremarkable Musculoskeletal: Unremarkable Integumentary: Unremarkable Neurological: Unremarkable Physical Examination - Vital Signs Temperature: 97.3 F Blood Pressure: 149/105 Pulse: 89 Respirations: 18 - Physical Exam General: Alert, Oriented x3 HEENT: Atraumatic, Normocephalic Respiratory: Normal air movement Cardiovascular: Regular rate/rhythm, Normal S1 S2 Gastrointestinal: Tenderness (in epigastrium) Musculoskeletal: No swelling Neurological: Normal speech, Normal strength at 5/5 x4 extr Assessment and Plan - Plan Abdominal pain: Deemed secondary to suspected pancreatitis. We will obtain lipase, comprehensive metabolic panel and CBC. We will have as needed morphine above for pain control. We also have antinausea medication with Zofran on board. He will be on bowel rest. Pancreatitis: Suspected based on presentation. We will have bowel rest. We will continue pain control with as needed morphine. We will obtain lipase level. We will start on pantoprazole therapy to assist with suspected reflux esophagitis/gastritis. Prophylaxis: Lovenox for DVT prophylaxis CODE STATUS: Full code Depression: We will treat as pancreatitis episode and discharge when he is deemed clinically stable. - Advance Directives Does patient have a Living Will: No Does patient have a Durable POA for Healthcare: No
[2023-06-05] MEDS ORDERED: SODIUM CHLORIDE 0.9% 10ML INJ IV PRN (06:19)
[2023-06-05] MEDS ORDERED: METOCLOPRAMIDE 10 MG/2mL INJ ONE (06:26)
[2023-06-05] MEDS ORDERED: NS KCL 20MEQ 1,000 ML IV ONE (06:45)
[2023-06-05 06:57] LABS: Specific Gravity > 1.030 (1.005-1.030); Urine Bilirubin NEGATIVE (Negative); Urine Blood Negative (Negative); Urine Clarity Clear (Clear); Urine Color Colorless (Yellow); Urine Glucose NEGATIVE (Negative); Urine Protein NEGATIVE (Negative); Urine Urobilinogen Normal (Normal)
[2023-06-05] MEDS: INSULIN REGULAR (HUMAN) 100 UNIT/ML SQ SCH ×4 (07:30→21:00)
[2023-06-05] MEDS: PANTOPRAZOLE 40 MG INJ IVP SCH ×2 (09:00→21:18)
[2023-06-05] MEDS: ENOXAPARIN 40 MG/0.4 ML SQ SCH (09:00)
[2023-06-05] MEDS ORDERED: ENOXAPARIN 40 MG/0.4 ML SQ ONE (09:28)
[2023-06-05] MEDS ORDERED: PANTOPRAZOLE 40 MG INJ ONE (09:28)
[2023-06-05] MEDS ORDERED: ONDANSETRON 4 MG/2 ML VIAL IV PRN (10:30)
--- NOTE | 2023-06-05 10:49 | RAD REPORT ---
EXAM DESCRIPTION: CT - Abdomen Pelvis W Contrast - CLINICAL HISTORY: The patient is 62 years old and is Male; ABD PAIN [facility] MAIN TECHNIQUE: Axial computed tomography images of the abdomen and pelvis with intravenous contrast. S agittal and coronal reformatted images were created and reviewed. This CT exam was performed using one or more of the following dose reduction techniques: automated exposure control, adjustment of t he mA and/or kV according to patient size, and/or use of iterative reconstruction technique. COMPARISON: 03/31/2022 CT abdomen pelvis with multiphase contrast FINDINGS: LUNG BASES: Unremarkable. No mass. No consolidation. ABDOMEN: LIVER: Unremarkable. No mass. GALLBLADDER AND BILE DUCTS: Cholecystectomy. No ductal dilation. PANCREAS: Unremarkable. No mass. No ductal dilation. SPLEEN: Unremarkable. No splenomegaly. ADRENALS: Unremarkable. No mass. KIDNEYS AND URETERS: Unremarkable. No solid mass. No hydronephrosis. STOMACH AND BOWEL: Unremarkable. No obstruction. No mucosal thickening. PELVIS: APPENDIX: No findings to suggest acute appendicitis. BLADDER: Unremarkable. No mass. REPRODUCTIVE: Unremarkable as visualized. ABDOMEN and PELVIS: INTRAPERITONEAL SPACE: Unremarkable. No free air. No significant fluid collection. BONES/JOINTS: Multilevel degenerative changes with intervertebral disc spacer redemonstrated at the L5-S1 level and postsurgical/bone harvest changes of the posterior left iliac bone. Left L5 hemilaminectomy changes with no acute osseous abnormality. No dislocation. SOFT TISSUES: Suspected subtle edema demonstrated about the pancreatic head and uncinate process, w ith no abnormal focal pancreatic mass or ductal dilatation appreciated. VASCULATURE: Moderate calcified atherosclerosis of the abdominal aorta and left greater than right iliofemoral arteries without aneurysmal dilatation. LYMPH NODES: Unremarkable. No enlarged lymph nodes. IMPRESSION: 1. Suspected subtle edema demonstrated about the pancreatic head and uncinate process, with no abnormal focal pancreatic mass or ductal dilatation appreciated. Recommend clinical correl ation for evidence of acute pancreatitis and correlation with lipase levels. 2. Otherwise, no acute findings of the abdomen or pelvis. Electronically signed by: Chris Montaño MD 06/05/2023 5:25 AM CDT Due to temporary technical issues with the PACS/Fluency reporting system, reports are being signed by the in house radiologists without review as a courtesy to insure prompt reporting. The interpreting radiologist is fully responsible for the content of the report.
[2023-06-05] MEDS: MORPHINE 2 MG/ML SYR IV PRN ×3 (12:45→21:18)
[2023-06-06] MEDS: MORPHINE 2 MG/ML SYR IV PRN ×3 (01:27→21:07)
[2023-06-06] MEDS: INSULIN REGULAR (HUMAN) 100 UNIT/ML SQ SCH ×4 (07:30→21:00)
[2023-06-06] MEDS ORDERED: HYDROMORPHONE HCL 2 MG/ML inj IV PRN (08:19)
--- NOTE | 2023-06-06 08:24 | P.PN ---
Subjective Date of Service: 06/06/23 Chief Complaint: Acute pancreatitis abdominal pain Patient is 62 years of age and alcoholic admitted with worsening abdominal pain for 3 days diagnosed with acute pancreatitis he still has significant amount of discomfort Review of Systems General: Weakness Gastrointestinal: Abdominal Pain Physical Examination - Vital Signs Temperature: 97.1 F Blood Pressure: 164/85 Pulse: 67 Respirations: 18 Pulse Ox (%): 98 - Physical Exam General: Alert, Moderate distress Neck: 2+ carotid pulse no bruit Respiratory: Clear to auscultation bilaterally Cardiovascular: No edema, Regular rate/rhythm Gastrointestinal: Normal bowel sounds, No rebound, Tenderness (Deep tenderness) Assessment And Plan - Current Problems (Diagnosis) (1) Acute pancreatitis Current Visit: Yes Status: Acute Plan: Patient is 62 years of age history of excessive alcohol abuse admitted with abdominal pain presumed pancreatitis lipase is elevated CT of the abdomen also shows inflammation of the pancreas there is abdominal tenderness plan to resume all his home medications clear liquid diet pain relief IV thiamine Labs reviewed mildly hypokalemic patient has underlying chronic pancreatitis associated with intermittent diarrhea all medications have been restarted Qualifiers: Pancreatitis type: alcohol induced
[2023-06-06] MEDS: ENOXAPARIN 40 MG/0.4 ML SQ SCH (08:38)
[2023-06-06] MEDS: PANTOPRAZOLE 40 MG INJ IVP SCH (08:39)
[2023-06-06] MEDS ORDERED: [UNRECOGNIZED DRUG - OTHER] PO SCH (09:00)
[2023-06-06] MEDS ORDERED: VALSARTAN PO SCH (09:00)
[2023-06-06] MEDS ORDERED: AMLODIPINE BESYLATE PO SCH (09:00)
[2023-06-06] MEDS: PANTOPRAZOLE 40MG TABLET PO SCH (09:00)
[2023-06-06] MEDS ORDERED: HOME MED 1 EA UNK (Omeprazole [Prilosec] 40 MG Capsule.Dr) PO SCH (09:00)
[2023-06-06 09:35] LABS: Potassium 3.7 mEq/L (3.5-5.1)
[2023-06-06] MEDS: THIAMINE 200 MG/2 ML INJ IVP SCH ×2 (10:39→21:07)
[2023-06-06] MEDS: POTASSIUM 25 MEQ EFFERV TAB PO SCH ×2 (10:39→21:06)
[2023-06-06] MEDS: AMLODIPINE 10 MG TAB PO SCH (10:40)
[2023-06-06] MEDS: VALSARTAN 160 MG TAB PO SCH (10:40)
[2023-06-06] MEDS: GABAPENTIN 400 MG CAP PO PRN ×4 (10:40→21:06)
[2023-06-06] MEDS: FENOFIBRATE 160 MG TAB PO SCH (10:41)
[2023-06-06] MEDS ORDERED: DIPHENHYDRAMINE 25 MG TAB/CAP PO ONE (10:51)
[2023-06-06] MEDS ORDERED: LIPASE PO SCH (11:30)
[2023-06-06] MEDS ORDERED: AMYLASE PO SCH (11:30)
[2023-06-06] MEDS ORDERED: PROTEASE PO SCH (11:30)
[2023-06-06] MEDS: DICYCLOMINE HCL 10 MG CAP PO PRN ×2 (13:10→21:06)
[2023-06-06] MEDS ORDERED: METFORMIN ER 500 MG TAB PO SCH (17:00)
[2023-06-06] MEDS: METFORMIN 500 MG PO SCH (17:09)
[2023-06-06] MEDS: PROTEASE PO SCH (17:11)
[2023-06-06] MEDS: LIPASE PO SCH (17:11)
[2023-06-06] MEDS: AMYLASE PO SCH (17:11)
[2023-06-07] MEDS: MORPHINE 2 MG/ML SYR IV PRN ×5 (04:03→21:48)
[2023-06-07] MEDS: DICYCLOMINE HCL 10 MG CAP PO PRN (04:03)
[2023-06-07 06:50] LABS: Hematocrit 39.8 % (39.6-49.0); MCV 92.4 fL (80-100); MPV 7.1 fL (7.6-11.3); Platelets 368 thou/uL (152-406)
[2023-06-07 07:08] LABS: Potassium 3.7 mEq/L (3.5-5.1)
[2023-06-07] MEDS: LIPASE PO SCH ×3 (07:30→16:30)
[2023-06-07] MEDS: PROTEASE PO SCH ×3 (07:30→16:30)
[2023-06-07] MEDS: AMYLASE PO SCH ×3 (07:30→16:30)
[2023-06-07] MEDS: INSULIN REGULAR (HUMAN) 100 UNIT/ML SQ SCH ×4 (07:30→19:55)
[2023-06-07 07:38] LABS: Albumin 3.5 g/dL (3.4-5.0); Bilirubin Direct 0.1 mg/dL (0-0.2); Bilirubin Indirect, Calculated 0.3 mg/dL (0.2-0.8); Bilirubin Total 0.4 mg/dL (0.2-1.0); Protein, Total 7.3 g/dL (6.4-8.2)
[2023-06-07] MEDS: METFORMIN 500 MG PO SCH ×2 (08:00→17:00)
--- NOTE | 2023-06-07 08:26 | P.PN ---
Subjective Date of Service: 06/07/23 Chief Complaint: Acute pancreatitis abdominal pain Subjective: Improving Tolerating clear liquid diet <Bakari Dietz - Last Filed: 06/07/23 08:32> Date of Service: 06/07/23 <Eric Rees - Last Filed: 06/07/23 18:28> Review of Systems 10-point ROS is otherwise unremarkable Gastrointestinal: Abdominal Pain <Bakari Dietz - Last Filed: 06/07/23 08:32> Physical Examination - Vital Signs Temperature: 98.1 F Blood Pressure: 151/78 Pulse: 60 Respirations: 16 Pulse Ox (%): 97 - Physical Exam General: Alert, In no apparent distress, Oriented x3 HEENT: Atraumatic, PERRLA, EOMI Neck: Supple, JVD not distended Respiratory: Clear to auscultation bilaterally, Normal air movement Cardiovascular: Regular rate/rhythm, Normal S1 S2 Capillary refill: <2 Seconds Gastrointestinal: Normal bowel sounds, Tenderness (Mild epigastric tenderness) Musculoskeletal: No tenderness Integumentary: No rashes Neurological: Normal speech, Normal tone, Normal affect Lymphatics: No axilla or inguinal lymphadenopathy - Studies Medications List Reviewed: Yes <Bakari Dietz - Last Filed: 06/07/23 08:32> Assessment And Plan - Plan Assessment: Acute pancreatitis Hypertriglyceridemia Plan: Acute pancreatitis Tolerating clear liquid diet, pain persistent but generally mildly improving Likely secondary to alcohol use, counseled on need for cessation. Continue IV fluids, as needed pain medications, lipase improving. History of previous cholecystectomy Monitor LFTs, Lipase Hypertriglyceridemia Triglycerides elevated moderately, continue fenofibrate. Dispo-home in 24-48 hours once pain is better controlled DVT PPX: Lovenox Code status: Full Discharge Plan: Home Plan to discharge in: 48 Hours - Code Status/Comfort Care Code Status Assessed: Yes (Full) Critical Care: No Time Spent Managing PTS Care (In Minutes): 25 <Bakari Dietz - Last Filed: 06/07/23 08:32> Physician Review: Patient Assessed, Agree with Above Assessment and Plan <Eric Rees - Last Filed: 06/07/23 18:28>
[2023-06-07] MEDS: Ringers Lactate 1,000 ML IV SCH ×3 (09:35→22:54)
[2023-06-07] MEDS: AMLODIPINE 10 MG TAB PO SCH (09:36)
[2023-06-07] MEDS: GABAPENTIN 400 MG CAP PO PRN ×4 (09:37→22:54)
[2023-06-07] MEDS: PANTOPRAZOLE 40MG TABLET PO SCH (09:37)
[2023-06-07] MEDS: FENOFIBRATE 160 MG TAB PO SCH (09:37)
[2023-06-07] MEDS: VALSARTAN 160 MG TAB PO SCH (09:37)
[2023-06-07] MEDS: POTASSIUM 25 MEQ EFFERV TAB PO SCH ×2 (09:37→20:25)
[2023-06-07] MEDS: ENOXAPARIN 40 MG/0.4 ML SQ SCH (09:38)
[2023-06-07] MEDS: THIAMINE 200 MG/2 ML INJ IVP SCH ×2 (09:50→20:26)
[2023-06-07 14:44] VITALS: BMI 22.8
[2023-06-08] MEDS: MORPHINE 2 MG/ML SYR IV PRN (04:25)
[2023-06-08] MEDS: Ringers Lactate 1,000 ML IV SCH ×2 (04:30→11:07)
[2023-06-08] MEDS: GABAPENTIN 400 MG CAP PO PRN ×2 (06:13→11:07)
[2023-06-08 07:26] LABS: Albumin 3.7 g/dL (3.4-5.0); Bilirubin Total 0.4 mg/dL (0.2-1.0); Potassium 3.7 mEq/L (3.5-5.1); Protein, Total 7.6 g/dL (6.4-8.2)
[2023-06-08] MEDS: INSULIN REGULAR (HUMAN) 100 UNIT/ML SQ SCH ×2 (07:30→11:30)
[2023-06-08] MEDS: PROTEASE PO SCH ×2 (07:43→11:07)
[2023-06-08] MEDS: LIPASE PO SCH ×2 (07:43→11:07)
[2023-06-08] MEDS: AMYLASE PO SCH ×2 (07:43→11:07)
--- NOTE | 2023-06-08 08:35 | P.PN ---
Subjective Date of Service: 06/08/23 Chief Complaint: Acute pancreatitis abdominal pain Subjective: Improving Tolerating clear liquid diet Review of Systems 10-point ROS is otherwise unremarkable Gastrointestinal: Abdominal Pain Physical Examination - Vital Signs Temperature: 97.0 F Blood Pressure: 144/72 Pulse: 60 Respirations: 18 Pulse Ox (%): 94 - Physical Exam General: Alert, In no apparent distress, Oriented x3 HEENT: Atraumatic, PERRLA, EOMI Neck: Supple, JVD not distended Respiratory: Clear to auscultation bilaterally, Normal air movement Cardiovascular: Regular rate/rhythm, Normal S1 S2 Capillary refill: <2 Seconds Gastrointestinal: Normal bowel sounds, Tenderness (Mild epigastric tenderness) Musculoskeletal: No tenderness Integumentary: No rashes Neurological: Normal speech, Normal tone, Normal affect Lymphatics: No axilla or inguinal lymphadenopathy - Studies Medications List Reviewed: Yes Assessment And Plan - Plan Assessment: Acute pancreatitis Hypertriglyceridemia Plan: Acute pancreatitis Tolerating clear liquid diet, pain improving, increase to full liquids this morning Possible discharge in the next 24 hours Likely secondary to alcohol use, counseled on need for cessation. Continue IV fluids, as needed pain medications, lipase improving. History of previous cholecystectomy Monitor LFTs, Lipase Hypertriglyceridemia Triglycerides elevated moderately, continue fenofibrate. Dispo-home in 24-48 hours once pain is better controlled DVT PPX: Lovenox Code status: Full Discharge Plan: Home Plan to discharge in: 24 Hours Physician Review: Patient Assessed, Agree with Above Assessment and Plan Critical Care: No Time Spent Managing PTS Care (In Minutes): 20
[2023-06-08] MEDS: VALSARTAN 160 MG TAB PO SCH (09:01)
[2023-06-08] MEDS: POTASSIUM 25 MEQ EFFERV TAB PO SCH (09:01)
[2023-06-08] MEDS: FENOFIBRATE 160 MG TAB PO SCH (09:02)
[2023-06-08] MEDS: THIAMINE 200 MG/2 ML INJ IVP SCH (09:02)
[2023-06-08] MEDS: PANTOPRAZOLE 40MG TABLET PO SCH (09:02)
[2023-06-08] MEDS: AMLODIPINE 10 MG TAB PO SCH (09:02)
[2023-06-08] MEDS: METFORMIN 500 MG PO SCH (09:02)
[2023-06-08] MEDS: ENOXAPARIN 40 MG/0.4 ML SQ SCH (09:02)
[2023-06-08 10:28] VITALS: O2SAT 98
[2023-06-08 12:22] VITALS: TEMP 97.8
[2023-06-08 12:45] VITALS: BP 149/73
--- NOTE | 2023-06-08 14:32 | P.DS ---
Admission Date: 06/05/23 Discharge Date: 06/08/23 Disposition: ROUTINE DISCHARGE Discharge Condition: GOOD Reason for Admission: Acute pancreatitis abdominal pain Consultations: none Procedures: CT abdomen pelvis 06/05/2023 FINDINGS: LUNG BASES: Unremarkable. No mass. No consolidation. ABDOMEN: LIVER: Unremarkable. No mass. GALLBLADDER AND BILE DUCTS: Cholecystectomy. No ductal dilation. PANCREAS: Unremarkable. No mass. No ductal dilation. SPLEEN: Unremarkable. No splenomegaly. ADRENALS: Unremarkable. No mass. KIDNEYS AND URETERS: Unremarkable. No solid mass. No hydronephrosis. STOMACH AND BOWEL: Unremarkable. No obstruction. No mucosal thickening. PELVIS: APPENDIX: No findings to suggest acute appendicitis. BLADDER: Unremarkable. No mass. REPRODUCTIVE: Unremarkable as visualized. ABDOMEN and PELVIS: INTRAPERITONEAL SPACE: Unremarkable. No free air. No significant fluid collection. BONES/JOINTS: Multilevel degenerative changes with intervertebral disc spacer redemonstrated at the L5-S1 level and postsurgical/bone harvest changes of the posterior left iliac bone. Left L5 hemilaminectomy changes with no acute osseous abnormality. No dislocation. SOFT TISSUES: Suspected subtle edema demonstrated about the pancreatic head and uncinate process, with no abnormal focal pancreatic mass or ductal dilatation appreciated. VASCULATURE: Moderate calcified atherosclerosis of the abdominal aorta and left greater than right iliofemoral arteries without aneurysmal dilatation. LYMPH NODES: Unremarkable. No enlarged lymph nodes. RADIOLOGY SERVICES REPORT (Continued) Name: MIGUEL NEWELL CC: Jaime Wyatt MD; Azael Putnam MD; U MIGUEL NEWELL / Report: [id number] Radiology Services Report Page 2 of 2 IMPRESSION: 1. Suspected subtle edema demonstrated about the pancreatic head and uncinate process, with no abnormal focal pancreatic mass or ductal dilatation appreciated. Recommend clinical correlation for evidence of acute pancreatitis and correlation with lipase level s. 2. Otherwise, no acute findings of the abdomen or pelvis. Brief History of Present Illness: Mr. Newell was admitted to the hospital for pancreatitis likely secondary to a lcohol abuse Hospital Course: You were admitted to the hospital for pancreatitis, treated with IV fluids and as needed pain medications. We were able to advance your diet and today you tolerated a regular diet. You can be safely discharged home to follow-up with your GI doctor in around 1 week. We discussed your frequent soft stools which is likely steatorrhea, this has been going on for some time, I recommend you continue taking the medication prescribed for your GI doctor and follow-up with them for titration. You can take Pepto-Bismol [id number] in addition as needed. Please totally abstain from alcohol as it can make your condition much worse. Vital Signs/Physical Exam: Temp Pulse Resp BP Pulse Ox 97.8 F 55 16 149/73 H 97 06/08/23 12:00 06/08/23 12:45 06/08/23 12:00 06/08/23 12:45 06/08/23 12:00 General: Alert, In no apparent distress, Oriented x3 HEENT: Atraumatic, PERRLA, EOMI Neck: Supple, JVD not distended Respiratory: Clear to auscultation bilaterally, Normal air movement Cardiovascular: Regular rate/rhythm, Normal S1 S2 Gastrointestinal: Normal bowel sounds, No tenderness Musculoskeletal: No tenderness Integumentary: No rashes Neurological: Normal speech, Normal tone, Normal affect Lymphatics: No axilla or inguinal lymphadenopathy Laboratory Data at Discharge: WBC 7.90 thou/uL (4.3-10.9) 06/07/23 05:46 Hgb 14.2 g/dL (13.6-17.9) 06/07/23 05:46 Hct 39.8 % (39.6-49.0) 06/07/23 05:46 Plt Count 368 thou/uL (152-406) 06/07/23 05:46 Sodium 137 mEq/L (136-145) 06/08/23 06:31 Potassium 3.7 mEq/L (3.5-5.1) 06/08/23 06:31 BUN 6 mg/dL (7-18) L 06/08/23 06:31 Creatinine 0.80 mg/dL (0.70-1.30) 06/08/23 06:31 Glucose 147 mg/dL (74-106) H 06/08/23 06:31 Total Bilirubin 0.4 mg/dL (0.2-1.0) 06/08/23 06:31 AST 22 U/L (15-37) 06/08/23 06:31 ALT 36 U/L (16-61) 06/08/23 06:31 Alkaline Phosphatase 76 U/L (45-117) 06/08/23 06:31 Triglycerides 252 mg/dL (<150) H 06/07/23 05:46 Cholesterol 145 mg/dL (<200) 06/07/23 05:46 HDL Cholesterol 43 mg/dL (40-60) 06/07/23 05:46 Cholesterol/HDL Ratio 3.37 06/07/23 05:46 Lipase 72 U/L (13-75) 06/08/23 06:31 Home Medications: Amlodipine Besylate/Valsartan [Amlodipine-Valsartan 10-160 mg] 1 each PO DAILY 04/20/23 Dicyclomine [Bentyl*] 20 mg PO TIDP PRN 04/20/23 Fenofibrate [Tricor*] 160 mg PO DAILY 04/20/23 Gabapentin [Neurontin*] 400 mg PO 6XD PRN 04/20/23 Lipase/Protease/Amylase [Zenpep Dr 25,000 Unit Capsule] 2 each PO AC 04/20/23 Metformin HCl [Metformin HCl ER] 500 mg PO BIDWM 04/20/23 Omeprazole [Prilosec] 40 mg PO DAILY 04/20/23 Physician Discharge Instructions: You were admitted to the hospital for pancreatitis, treated with IV fluids and as needed pain medications. We were able to advance your diet and today you tolerated a regular diet. You can be safely discharged home to follow-up with your GI doctor in around 1 week. We discussed your frequent soft stools which is likely steatorrhea, this has been going on for some time, I recommend you continue taking the medication prescribed for your GI doctor and follow-up with them for titration. You can take Pepto-Bismol [id number] in addition as needed. Please totally abstain from alcohol as it can make your condition much worse. Diet: low fat Activity: Ad moisés Followup: Unknown,U [Primary Care Provider] - Time spent managing pt's care (in minutes): 25
== END 2023-06-08 15:09 | disposition home or self-care (01) | DRG 440 ==
LOC: ER 02:45 → ERHOLD 06:41 → 4TH 11:32
PROVIDERS: ADMIT Internal Medicine Nephrology; ATTEND Internal Medicine
DX: K85.20 Alcohol induced acute pancreatitis without necrosis or infection (principal); F10.10 Alcohol abuse, uncomplicated; E11.9 Type 2 diabetes mellitus without complications; E78.00 Pure hypercholesterolemia, unspecified; G89.29 Other chronic pain; E87.6 Hypokalemia; E78.1 Pure hyperglyceridemia; K86.1 Other chronic pancreatitis; F17.210 Nicotine dependence, cigarettes, uncomplicated; Z88.8 Allergy status to other drugs, medicaments and biological substances; Z79.84 Long term (current) use of oral hypoglycemic drugs; Z71.41 Alcohol abuse counseling and surveillance of alcoholic; Z90.49 Acquired absence of other specified parts of digestive tract; Z79.899 Other long term (current) drug therapy; Y90.0 Blood alcohol level of less than 20 mg/100 ml
CPT/HCPCS: 36415; 74177; 80048; 80053; 80061; 80076; 81003; 82077; 82947; 83690; 85025; 85027; 96372; 99285; C9113; J0500; J1170; J1650; J2270; J2405; J2765; J3411; J3480; J7030; J7120; Q9967